=== PATIENT | female | born 1935 | race Caucasian/White ===

== ENCOUNTER 2020-01-08 12:33 | Emergency (ER) | payer MEDICARE, SELFPAY ==
--- NOTE | ~2020-01-08 | CT_ITS ---
EXAMINATION: CT brain wo con DATE: 01/08/2020 15:10 INDICATION: Status post fall. Head trauma. TECHNIQUE: Computed tomography (CT) of the head was performed without intravenous contrast. The dose- length product was 681.00 mGy-cm. Automated exposure control and iterative reconstruction technique w ere employed. COMPARISON: CT dated 11/11 FINDINGS: Mild generalized atrophy. There are scattered moderate periventricular and subcortical whit e matter changes, most likely related to small vessel ischemic disease (microangiopathy). There is mi ld mucosal thickening of the left maxillary sinus. No acute intracranial hemorrhage, infarction, mass or mass effect. No ventriculomegaly or midline shift. No depressed skull fractures. IMPRESSION: 1. No acute intracranial abnormality. 2: Chronic age-related findings. Reviewed, dictated and finalized at location B.
--- NOTE | ~2020-01-08 | XR_ITS ---
XR knee LT 3V 01/08/2020 15:37 Indication: Left knee pain Procedure: 3 views left knee Comparison: No prior studies for comparison. Findings: Moderate osteoarthritis of the left knee. No acute fracture or traumatic malalignment. No s ignificant joint effusion. No foreign bodies. Osteopenia. Impression: 1: Moderate osteoarthritis of the left knee. Reviewed, dictated and finalized at location B. Impression: 1: Moderate osteoarthritis of the left knee.
--- NOTE | ~2020-01-08 | CT_ITS ---
EXAMINATION: CT cervical spine wo con DATE: 01/08/2020 15:10 INDICATION: Fall onto left side of the body with loss of consciousness. TECHNIQUE: Computed tomography (CT) of the cervical spine was performed without intravenous contrast. Automated exposure control and iterative reconstruction technique were employed. The dose-length pro duct was 118.61 mGy-cm. COMPARISON: None FINDINGS: Exaggerated cervical lordosis. 1-2 mm anterolisthesis C6 on C7 and 2 mm anterolisthesis C7 on T1. Sev ere osteoarthritis at the atlantoaxial articulation. T3 burst fracture with 70% anterior vertebral loida dy height loss and with 4 mm retropulsion into the central canal resulting in mild central canal sten osis. 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 Cervical vertebral body heights are normal. No other fractures identified. Mild disc height loss at C4-C5, C5-C6 and C6-C7. Mild biapical pleural-parenchymal scarring. The following disc levels are specifically discussed: C2-C3: Small posterior disc osteophyte complex. There is moderate bilateral uncovertebral joint osteo arthritis. There is mild right and severe left facet joint osteoarthritis. There is mild left neural foraminal stenosis. There is minimal central canal stenosis. C3-C4: Disc is minimally bulging. There is mild right and moderate left uncovertebral joint osteoarth ritis. There is moderate right and severe left facet joint osteoarthritis. There is mild right and mo derate left neural foraminal stenosis. There is minimal central canal stenosis. C4-C5: Posterior disc osteophyte complex. There is severe bilateral uncovertebral joint osteoarthriti s. There is mild right and severe left facet joint osteoarthritis. There is mild right and moderate l eft neural foraminal stenosis. There is mild central canal stenosis. C5-C6: Disc is bulging. There is moderate left and severe right uncovertebral joint osteoarthritis. T here is mild right and moderate left facet joint osteoarthritis. There is moderate bilateral neural f oraminal stenosis. There is mild central canal stenosis. C6-C7: Disc is bulging. There is old right and severe left uncovertebral joint osteoarthritis. There is severe right and moderate left facet joint osteoarthritis. There is moderate bilateral neural fora ju stenosis. There is mild central canal stenosis. C7-T1: Disc is bulging. There is mild bilateral uncovertebral joint osteoarthritis. There is severe b ilateral facet joint osteoarthritis. There is mild to moderate bilateral neural foraminal stenosis. T here is mild central canal stenosis. IMPRESSION: 1. Subacute to chronic appearing T3 burst fracture. No acute osseous abnormality in the cervical spin e. 2. Moderate cervical spondylosis. Reviewed, dictated and finalized at location A. IMPRESSION: 1. Subacute to chronic appearing T3 burst fracture. No acute osseous abnormalit y in the cervical spine. 2. Moderate cervical spondylosis.
--- NOTE | ~2020-01-08 | XR_ITS ---
EXAMINATION: XR hand LT min 3V DATE: 01/08/2020 15:38 INDICATION: Pain at the phalanges of the left hand and abrasions at the metacarpophalangeal joints po st fall. TECHNIQUE: Posteroanterior, oblique and lateral views of the left hand were obtained. COMPARISON: None. FINDINGS: Bone alignment is normal. No fracture. Mild to moderate polyarticular osteoarthritis throughout the l eft hand and wrist most prominent at the first carpometacarpal, third metacarpophalangeal and third d istal interphalangeal joints. Diffuse osteopenia. Peripheral IV at the dorsum of the distal forearm. Mild soft tissue swelling about several of the interphalangeal joints. IMPRESSION: 1. Mild to moderate polyarticular osteoarthritis. No acute osseous abnormality. Reviewed, dictated and finalized at location A.
[2020-01-08 12:34] VITALS: BP 150/70; PULSE 85; RESP 17; TEMP 37; O2SAT 97
--- NOTE | 2020-01-08 12:47 | ECG_ITS ---
Measurements Intervals [place] Rate: 84 P: 62 TX: 145 QRS: 55 QRSD: 86 T: 52 QT: 380 QTc: 450 Interpretive Statements SINUS RHYTHM VOLTAGE CRITERIA FOR LVH BORDERLINE ECG Electronically Signed On 01-08-2020 13:14:20 CDT by Nathaniel Benavides D.O.
[2020-01-08 13:12] LABS: Basophils Absolute Auto 0.1 K/mm3 (0.0-0.1); Eosinophils Absolute Auto 0.7 K/mm3 (0-0.3); Eosinophils Percent Auto 5.9 % (0-4.4); Hematocrit 41.1 % (37.0-47.0); Hemoglobin 13.5 g/dL (12.0-15.0); Immature Granulocyte Absolute 0.04 K/mm3 (0.00-0.031); Immature Granulocyte Percent A 0.3 % (0-0.5); Lymphocytes Percent Auto 14.5 % (18.3-44.2); Mean Corpuscular HGB Conc 32.8 g/dl (32-36); Mean Corpuscular Hemoglobin 30.3 pg (26-34); Mean Corpuscular Volume 92.4 fl (80-100); Monocytes Absolute Auto 0.9 K/mm3 (0.1-0.6); Monocytes Percent Auto 7.3 % (2.6-8.5); Neutrophils Absolute Auto 8.3 K/mm3 (1.3-6.7); Platelet Count Result 261 k/mm3 (150-375); Red Blood Count 4.45 M/mm3 (4.2-5.4); Red Cell Distribution Width 14.2 % (11.5-14.5); White Blood Count 11.7 K/mm3 (4.5-10.0)
[2020-01-08 13:26] LABS: Anion Gap 8 mmol/L (8-16); Blood Urea Nitrogen 11 mg/dL (7-17); Calcium 9.1 mg/dL (8.4-10.2); Carbon Dioxide 26 mmol/L (22-30); Chloride 104 mmol/L (98-107); Estimated CRCL calculation 47 ml/min; Estimated Glomerular Filt Rate > 60; Glucose 103 mg/dL (65-105); Potassium 4.3 mmol/L (3.4-5.0); Sodium 138 mmol/L (137-145)
[2020-01-08 14:25] VITALS: BP 150/71; PULSE 76; RESP 15; O2SAT 99
--- NOTE | 2020-01-08 14:35 | ED.FALL ---
HPI - Fall General Chief Complaint: Fall Stated Complaint: fall Time Seen by Provider: 01/08/20 14:23 Source: patient, family and EMS Limitations: no limitations History of Present Illness HPI Narrative: 84 years old white female, lives with her daughter, went out for short walk, possible tripped at the curb and fell on the left side of her body, with possible loss of consciousness for a few seconds. Patient does not recall the event. Patient have history of Alzheimer's , is normal for her to not remembering events. Currently complaining of left knee pain. Patient denies any head, neck, back, chest, abdomen or any other injuries. Except some bruises of left hand and some pain left knee anteriorly. Related Data Allergies Allergy/AdvReac Type Severity Reaction Status Date / Time ANESTHIA MED Allergy Unknown TROUBLE Uncoded 01/08/15 13:21 BREATHING Review of Systems Review of Systems: Narrative: CONSTITUTIONAL: Denies fever, chills, or sweats. EYES: Denies visual changes, redness, or discharge. ENT: Denies rhinorrhea, congestion, sore throat, or otalgia. CARDIOVASCULAR: Denies chest pain, palpitations, or edema. RESPIRATORY: Denies cough or dyspnea. GASTROINTESTINAL: Denies abdominal pain, nausea, vomiting, or diarrhea. GENITOURINARY: Denies dysuria or hematuria. SKIN: Denies rash or itching. MUSCULOSKELETAL: Denies back pain, joint pain, or myalgia. NEUROLOGIC: Denies headache, numbness, or weakness. PSYCHIATRIC: Denies anxiety or depression. [facility] Past Medical History Medical History (Updated 01/08/20 @ 16:55 by Ami Boswell MD) Dementia Family History Family History Mother Family history of malignant neoplasm of breast in first degree relative Grandparent Family history of malignant neoplasm of male breast Social History Social History Smoking status: Never smoker Alcohol intake: never Gender identity (if verbalized by the patient): Female Exam Narrative: Exam Narrative: General appearance: Well-developed, well-nourished Skin: Normal color, abrasion at the knuckles of the left fingers, bruises and contusion of left side of left upper lip Head: Normocephalic, nontraumatic Eyes: Clear conjunctiva ENT: Oropharynx normal, ears normal, nose normal Neck: Supple, nontender Chest and respiratory: Airway patent, no respiratory distress, no accessory muscle use Heart: Regular rate/rhythm Abdomen: Soft, nontender, no organomegaly, quiet bowel sounds Vascular: Normal peripheral pulses, normal capillary refill. Musculoskeletal: Normal range of motion, nontender back, slight tenderness left knee anteriorly, no bruises, no swelling or deformity, good range of motion Neurologic: Alert and oriented ?3, CLINICAL APPLICATION MANAGER is normal as tested, no gross motor deficit Course Course Emergency Course: Improving ADMISSIONS OFFICER/PA Physician Supervision Patient still asymptomatic, feeling okay and ready to go home, X-ray showed subacute/chronic T3 burst fracture. I believe it is old and chronic because patient currently having no symptoms. Reevaluation(s) Date: 01/08/20 Time: 16:56 Vital Signs Vital signs: Vital Signs Temperature 37.0 C 01/08/20 12:34 Pulse Rate 85 01/08/20 12:34 Respiratory Rate 17 01/08/20 12:34 Blood Pressure 150/70 H 01/08/20 12:34 Pulse Oximetry 97 01/08/20 12:34 Temperature 37.0 C 01/08/20 12:34 Pulse Rate 78 01/08/20 16:24 Respiratory Rate 18 01/08/20 16:24 Blood Pressure 119/50 L 01/08/20 16:24 Pulse Oximetry 98 01/08/20 16:24 MDM - Fall MDM Narrative Medical decision making narrative: Physical e
[2020-01-08 15:55] LABS: Add Urine Microscopic? YES; Appearance Urine Clear (Clear); Bacteria Urine Trace /hpf; Bilirubin Urine Negative (Negative); Blood Urine Negative (Negative); Color Urine Yellow (Yellow); Glucose Urine UA Negative (Negative); Ketones Urine Negative (Negative); Leukocyte Esterase Ur Negative LEU/UL (Negative); Mucus Urine Rare /lpf; Nitrate Urine Negative (Negative); Protein Urine Negative (Negative); Specific Grav Ur 1.015 (1.001-1.035); Squamous Epithelial Cell Urine Rare /hpf (Few); Urobilinogen Urine Negative mg/dL (<2.0); WBC Urine 0-3 /hpf
[2020-01-08 16:24] VITALS: BP 119/50; PULSE 78; RESP 18; O2SAT 98
[2020-01-08 17:27] VITALS: BP 112/86; PULSE 99; RESP 17; O2SAT 98
== END 2020-01-08 17:45 | disposition home or self-care (01) ==
PROVIDERS: Emergency Provider Emergency Medicine
DX: S22.031A Stable burst fracture of third thoracic vertebra, initial encounter for closed fracture (principal); S00.531A Contusion of lip, initial encounter; G30.9 Alzheimer's disease, unspecified; F02.80 Dementia in other diseases classified elsewhere, unspecified severity, without behavioral disturbance, psychotic disturbance, mood disturbance, and anxiety; W18.09XA Striking against other object with subsequent fall, initial encounter
CPT/HCPCS: 36415; 51701; 70450; 72125; 73130; 73562; 80048; 81001; 85025; 93005; 99284

== ENCOUNTER 2025-02-02 20:36 | Inpatient (IN) | payer MEDICARE, SELFPAY ==
--- OUTSIDE RECORDS SUMMARY | 2009-08-07 06:00 | XMS_ITS | Continuity of Care Document ---
Author Organization [facility] Address [address] [facility] [address] [place] [address] Phone Care Team Providers Care Review Specialist Name Role Phone Mc Alatorre Unavailable Unavailable Procedures Procedure Date Post-op Follow-up Visit Refraction After Cataract Laser Surgery Office/outpatient Visit, Est Office/outpatient Visit, Est Optic Nerve Head Eval No Script Office/outpatient Visit, Est Optic Nerve Head Eval No Script Fundus Photography W/ Report Visual Field Examination(s) Office/outpatient Visit, Est Optic Nerve Head Eval Echo Exam Of Eye Eye Exam & Treatment Refraction Advance Directives Directive Yes / No Effective Date File Name No Information Encounters Encounter Description Practice Location Reason(s) For Visit Diagnoses Date Provider Providers Copied on Encounter [facility], [address], [place], [place], [id number], [place] tel:[phone] [facility] No Information 0 Celi Bentley. [address] , [address], [place], [address], [place]. tel:[phone] [facility], [address], [place], [place], [id number], [place] tel:[phone] [facility] No Information Apr-0 8-201 0 Doisy Edsheila. [address], [address], [place], [address], [place]. tel:[phone] Office/outpat ient Visit, [facility], [address], [place], [place], [id number], [place] tel:[phone] [facility] No Information Mar-2 5-201 0 Doisy Edsheila. [address] , [address], [place], [place], [facility], [place]. tel:[phone] Office/outpat ient Visit, [facility], [address], [place], [place], [id number], [place] tel:[phone] [facility] No Information Oct-2 2-200 9 Doiroman Edsheila. [address], [place], [place], [facility], [place]. tel:[phone] Office/outpat ient Visit, [facility], [address], [place], [place], [id number], [place] tel:[phone] [facility] No Information Apr-2 0-200 9 Doisy Edsheila. [address], [place], [address], [place]. tel:[phone] Referring Provider: Mc Arellano, [address], [place], [place], [facility]. tel:[phone] [facility], [address], [place], [place], [id number], [place] tel:[phone] [facility] No Information Mar-3 1-200 9 Doisy Edsheila. [address], [place], [address], [place]. tel:[phone] Referring Provider: Mc Arellano, Sav[address], [place], [facility]. tel:[phone] Office/outpat ient Visit, Est [facility], [address], [place], [place], [id number], tel:[phone] [facility] No Information 8 Celi Bentley. [address] [place] [address] , [address], [place], [facility], . tel:[phone] Referring Provider: [facility] [address], [place], [facility]. tel:[phone] [facility], [address], [place], [place], [id number], tel:[phone] [facility] No Information 7 Celi Bentley. [address] [place] [address] , [address], [place], [facility], . tel:[phone] Family History Family Member Type Diagnosis Age At Onset No Information Payers Payer name Insurance type Covered democrat ID Authoriza tion(s) No Information Social History Type Description Quantity Date Captured Comments Sex Female Smoking Status No Information Chief Complaint And Reason For Visit No Information Reason For Referral Reason For Referral No Information History Of Present Illness Encounter Date Complaint History Of Prese nt Illness No Information Functional Status Date Functional Assessmen t No Information Instructions Date Instruction Additional Infor mation No Information Assessments Type Assessment Date No Information Patient Care Teams Name Effective Dates (start - stop) Status Members No Information
--- NOTE | ~2025-02-02 | XR_ITS ---
MODIFIED ESOPHAGRAM HISTORY: Dysphagia. TECHNIQUE: Modified barium esophagram was performed on 02/11/2025. I administered fluoroscopy and performed the exam with speech pathologist. Patient was seated for lateral fluoroscopic imaging for ingestion of thin liquids, pudding, solids and quantified amounts, followed by thin liquids in uncontrolled amounts. This was recorded on tape. A single fluoroscopic spot image was also recorded. The DAP for this procedure was 1.869 Gycm2. The amount of fluoroscopy time used during this procedure was 3.2 minutes. FINDINGS: Oral stage: Reduced lingual movement with premature spillage of contrast bolus to the level of the vallecula with all consistencies. Pharyngeal stage: Reduced laryngeal elevation, reduced tongue base retraction and reduced pharyngeal squeeze. There is moderate vallecular, piriform sinus and pharyngeal wall residue. Laryngeal penetration without aspiration. There is also cricopharyngeal dysfunction. Cervical/esophageal stage: Adequate function. IMPRESSION: Pharyngeal dysphagia with significant residue and laryngeal penetration without aspiration. Please correlate with speech pathologist findings and specific feeding recommendations. Reviewed, dictated and finalized at location A. IMPRESSION: Pharyngeal dysphagia with significant residue and laryngeal penetra tion without aspiration. Please correlate with speech pathologist findings and specific feeding recommendations.
--- NOTE | ~2025-02-02 | XR_ITS ---
Examination: XR pelvis 1-2V, XR hip RT min 2V Clinical History: fall Comparison: None Technique: AP pelvis, 2 views right hip Findings/impression: Pelvis: 1. No acute pelvic fracture. 2. Left pubic rami chronic fractures. 3. Comminuted intertrochanteric fracture right hip. Right hip 1. Comminuted intertrochanteric fracture. Reviewed, dictated and finalized at location R.
--- NOTE | ~2025-02-02 | XR_ITS ---
EXAMINATION: XR chest 1V portable COMPARISON: No comparisons available. HISTORY: Shortness of breath FINDINGS: Moderate pulmonary venous congestion. Small basilar infiltrates. No pneumothorax. Moderate cardiomegaly. Mediastinal and hilar contours are within normal limits. Bony thorax no acute abnormality. Miscellaneous: Left PICC line terminates in the SVC. Impression: Probable CHF. Superimposed pneumonia suspected. The findings appear slightly improved compared to the previous exam Reviewed, dictated and finalized at location P. Impression: Probable CHF. Superimposed pneumonia suspected. The findings appear slightly im proved compared to the previous exam
--- NOTE | ~2025-02-02 | XR_ITS ---
EXAMINATION: XR surgery orthopedic DATE: 02/05/2025 11:21 INDICATION: Right intertrochanteric nailing TECHNIQUE: 4 fluoroscopic images of the right wrist were obtained during procedure performed by Dr. Jama. Radiologist was not present for the imaging or procedure. The amount of fluoroscopy time used during this procedure was 5.6 minutes. Total DAP was 26.597 Gycm^2. COMPARISON: None. FINDINGS: Interval reduction internal fixation of a comminuted intertrochanteric fracture the proximal right femur. There is near-anatomic alignment of the weightbearing axis of the femur which is fixed with an antegrade intramedullary [place] with distal interlocking screw and femoral neck dynamic compression screw. The prior displacement of the lesser trochanteric fragment which is not included in the fixation has also significant decreased. Left hip joint space appears relatively preserved. Small marginal osteophytes about the femoral head and acetabulum consistent with mild osteoarthritis. Along the images there is instrumentation projecting over the more distal thigh and femur, unclear whether internal or e xternal to the patient. IMPRESSION: 1. Near-anatomic alignment post open reduction internal fixation of a comminuted intertrochanteric fracture the proximal right femur. See procedure note for further detail. Reviewed, dictated and finalized at location A. IMPRESSION: 1. Near-anatomic alignment post open reduction internal fixation of a comminute d intertrochanteric fracture the proximal right femur. See procedure note for f urther detail.
--- NOTE | ~2025-02-02 | XR_ITS ---
Examination: XR elbow RT 2V Clinical History: fall Comparison: None Technique: 3 views right elbow Findings/impression: 1. Comminuted displaced fracture olecranon. 2. No other fracture noted. 3. No dislocation identified. Reviewed, dictated and finalized at location R.
--- NOTE | ~2025-02-02 | XR_ITS ---
MODIFIED ESOPHAGRAM HISTORY: Dysphagia. TECHNIQUE: Modified barium esophagram was performed on 02/08/2025. I administered fluoroscopy and performed the exam with speech pathologist. Patient was seated for lateral fluoroscopic imaging for ingestion of thin liquids, pudding, solids and quantified amounts, followed by thin liquids in uncontrolled amounts. This was recorded on tape. A single fluoroscopic spot image was also recorded. The DAP for this procedure was 2.002 Gycm2. The amount of fluoroscopy time used during this procedure was 3.3 minutes. FINDINGS: Oral stage: Adequate function. Pharyngeal stage: Reduced laryngeal elevation and tongue base retraction. Moderate vallecular and piriform sinus residue. Laryngeal penetration without aspiration with thin and mildly thickened liquids by cup. Cricopharyngeal dysfunction. Cervical/esophageal stage: Adequate function. IMPRESSION: Pharyngeal dysphagia with laryngeal penetration without aspiration. Please correlate with speech pathologist findings and specific feeding recommendations. Reviewed, dictated and finalized at location A. IMPRESSION: Pharyngeal dysphagia with laryngeal penetration without aspiration. Please correlate with speech pathologist findings and specific feeding recomm endations.
--- NOTE | ~2025-02-02 | XR_ITS ---
EXAMINATION: XR chest 1V portable COMPARISON: No comparisons available. HISTORY: Congestion FINDINGS: Scattered bilateral infiltrates with small bilateral effusions. Moderate pulmonary venous congestion. No pneumothorax. Moderate cardiomegaly. Mediastinal and hilar contours are within normal limits. Bony thorax no acute abnormality. Miscellaneous: None Impression: CHF. Superimposed probable pneumonia Reviewed, dictated and finalized at location P. Impression: CHF. Superimposed probable pneumonia
--- NOTE | ~2025-02-02 | XR_ITS ---
Examination: XR chest 1V portable Clinical History: Congestion Comparison: 1 day prior Technique: Portable AP Findings: Cardiomegaly. Mild worsening diffuse airspace opacities. Persistent pleural effusions and bibasilar opacities. No acute bony abnormality. Old left rib fractures. IMPRESSION: 1. Worsening interstitial pulmonary edema and/or pneumonitis. 2. Persistent pleural effusions with bibasilar atelectasis and/or airspace disease. Reviewed, dictated and finalized at location R. IMPRESSION: 1. Worsening interstitial pulmonary edema and/or pneumonitis. 2. Persistent pleural effusions with bibasilar atelectasis and/or airspace dis ease.
--- NOTE | ~2025-02-02 | XR_ITS ---
EXAMINATION: XR chest port-a-cath/central COMPARISON: No comparisons available. HISTORY: CENTRAL LINE PLACEMENT FINDINGS: Moderate pulmonary venous congestion. Small basilar infiltrates. No pneumothorax. Moderate cardiomegaly. Mediastinal and hilar contours are within normal limits. Bony thorax no acute abnormality. Miscellaneous: There is a left-sided line which may be within a left-sided SVC. Impression: CHF. Superimposed probable pneumonia. Left-sided line possibly within a left- sided SVC but exact location not clear. Correlation with CT is suggested Reviewed, dictated and finalized at location P. Impression: CHF. Superimposed probable pneumonia. Left-sided line possibly within a left-si ded SVC but exact location not clear. Correlation with CT is suggested
--- NOTE | ~2025-02-02 | XR_ITS ---
EXAMINATION: XR chest 1V portable COMPARISON: No comparisons available. HISTORY: concern for aspiration FINDINGS: Bilateral small infiltrates. No pneumothorax. Heart is normal size. Moderate hiatal hernia. Bony thorax no acute abnormality. Miscellaneous: None Impression: Early bilateral pneumonia Reviewed, dictated and finalized at location P. Impression: Early bilateral pneumonia
--- NOTE | ~2025-02-02 | CT_ITS ---
EXAMINATION: CT brain wo con DATE: 02/02/2025 21:20 INDICATION: Fall. TECHNIQUE: Computed tomography (CT) of the head was performed without intravenous contrast. The mA was adjusted according to patient size. Iterative reconstruction technique was employed. The dose-length product was 681.00 mGy-cm. COMPARISON: Head CT 01/08/2020 FINDINGS: There are scattered areas of low attenuation in the cerebral white matter. There is no intracranial hemorrhage, acute infarction, or abnormal intracranial mass lesion. The ventricles are normal in size. There is mild mucosal thickening in the paranasal sinuses. There are likely changes of ocular lens replacement surgeries. The mastoid air cells are normal. IMPRESSION: 1. Stable extensive nonspecific cerebral white matter disease, which likely represents chronic small vessel ischemic disease. Reviewed, dictated and finalized at location E. IMPRESSION: 1. Stable extensive nonspecific cerebral white matter disease, which likely rep resents chronic small vessel ischemic disease.
--- NOTE | ~2025-02-02 | MR_ITS ---
EXAMINATION: MR brain/brain stem wo con DATE: 02/07/2025 17:38 INDICATION: Cerebrovascular accident. TECHNIQUE: Magnetic resonance imaging (MRI) of the brain and brainstem was performed without intravenous contrast. COMPARISON: Brain MRI 11/18/2008 FINDINGS: There is no intracranial hemorrhage, acute infarction, or abnormal intracranial mass lesion. There are scattered areas of nonspecific increased T2- weighted signal intensity in the cerebral white matter. The ventricles are normal in size. There are likely changes of ocular lens replacement surgeries. The mastoid air cells are normal. The paranasal sinuses are clear. IMPRESSION: 1. Extensive nonspecific cerebral white matter disease, which likely represents chronic small vessel ischemic disease. 2. Note that some sequences were not performed due to patient noncompliance. Reviewed, dictated and finalized at location E.
--- NOTE | ~2025-02-02 | XR_ITS ---
EXAMINATION: XR surgery orthopedic DATE: 02/05/2025 13:32 INDICATION: ORIF right elbow fracture TECHNIQUE: 2 fluoroscopic images of the right elbow were obtained during procedure performed by Dr. Jama. Radiologist was not present for the imaging or procedure. The amount of fluoroscopy time used during this procedure was 11.1 minutes. Total DAP was 6.29 Gycm^2. COMPARISON: 02/02/2025 FINDINGS: Interval reduction of the previously noted intra-articular fracture of the proximal right ulna extending across the base of the olecranon which is now in near-anatomic limited. The fracture is fixed with a dorsal plate and screws. Mild osteoarthritis at the ulnotrochlear articulation. IMPRESSION: 1. Near-anatomic alignment post open reduction internal fixation of an intra- articular proximal right ulnar fracture. See procedure note for further detail. Reviewed, dictated and finalized at location A. IMPRESSION: 1. Near-anatomic alignment post open reduction internal fixation of an intra-ar ticular proximal right ulnar fracture. See procedure note for further detail.
--- NOTE | ~2025-02-02 | CT_ITS ---
EXAMINATION: CT cervical spine wo con DATE: 02/02/2025 21:20 INDICATION: Fall. TECHNIQUE: Computed tomography (CT) of the cervical spine was performed without intravenous contrast. Automated exposure control and iterative reconstruction technique were employed. The dose-length product was 143.30 mGy-cm. COMPARISON: CT 01/08/2020 FINDINGS: Alignment is normal. There is a chronic burst fracture of T3. There is mildly decreased disc height at C2-C3, severely decreased disc height at C4-C5 and C5-C6, and moderately decreased disc height at C6-C7. There is multilevel severe facet joint osteoarthritis and uncovertebral joint osteoarthritis. There is mild neural foraminal stenosis at multiple levels on either side. On the left, there is moderate neural foraminal stenosis at C4-C5. There is mild central canal stenosis at C4-C5, C5-C6, and C6-C7. IMPRESSION: 1. No acute fracture. 2. Severe cervical spondylosis. Reviewed, dictated and finalized at location E.
--- NOTE | ~2025-02-02 | XR_ITS ---
Examination: XR chest 1V Clinical History: Fall Comparison: None Technique: Portable AP Findings: Heart size upper limit of normal. Patchy bilateral interstitial foci. Old left rib fractures. IMPRESSION: 1. Interstitial changes probably chronic but superimposed pneumonitis or airspace disease not excluded. Reviewed, dictated and finalized at location R. IMPRESSION: 1. Interstitial changes probably chronic but superimposed pneumonitis or airsp khadijah disease not excluded.
--- NOTE | ~2025-02-02 | XR_ITS ---
MODIFIED ESOPHAGRAM HISTORY: Aspiration TECHNIQUE: Modified barium esophagram was performed on 02/04/2025. I administered fluoroscopy and performed the exam with speech pathologist. Patient was seated for lateral fluoroscopic imaging for ingestion of thin liquids, pudding, solids and quantified amounts, followed by thin liquids in uncontrolled amounts. This was recorded on tape. A single fluoroscopic spot image was also recorded. The DAP for this procedure was 5.181 Gycm2. The amount of fluoroscopy time used during this procedure was 7.7 minutes. FINDINGS: Oral stage: Reduced lingual to palatal seal. Pharyngeal stage: Reduced laryngeal elevation and adduction. Reduced tongue base retraction. There is vallecular, piriform sinus and pharyngeal wall residue. There was laryngeal penetration with aspiration with multiple consistencies. Cervical/esophageal stage: Limited opening of the upper esophageal sphincter. IMPRESSION: Oropharyngeal dysphagia with laryngeal penetration and aspiration with multiple consistencies Please correlate with speech pathologist findings and specific feeding recommendations. Reviewed, dictated and finalized at location A. IMPRESSION: Oropharyngeal dysphagia with laryngeal penetration and aspiration w ith multiple consistencies Please correlate with speech pathologist findings a nd specific feeding recommendations.
[2025-02-02 20:32] VITALS: BP 185/118; PULSE 112; RESP 25; TEMP 36.7; O2SAT 94
--- NOTE | 2025-02-02 20:48 | ED.FALL ---
HPI - Fall General Chief Complaint: Fall Stated Complaint: fall, hip pain Time Seen by Provider: 02/02/25 20:45 Source: patient and EMS Mode of arrival: EMS Limitations: no limitations History of Present Illness HPI Narrative: Patient is an 89-year-old female presents to the emergency department from [facility] by EMS for a fall. Patient reports just prior to arrival she fell while getting off the toilet, denies feeling lightheaded or passing out rather it is fell onto her right side hitting her right elbow. Patient denies hitting her head or having loss of consciousness. Patient states she was on the ground for any extended period of time. Patient denies any pain at rest only when I push on her right elbow. Patient denies any history of injury to right elbow wound the past. Patient denies any recent illness. Patient denies any chest pain, difficulty breathing, abdominal pain, back pain, pain, focal weakness, numbness, urinary incontinence, stool incontinence, dysuria. Related Data Home Medications ?Medication ?Instructions ?Recorded ?Confirmed ?Last Taken ?Type donepezil 10 mg tablet mg 02/02/25 Unknown History levothyroxine 112 mcg tablet mcg 02/02/25 Unknown History levothyroxine 88 mcg tablet mcg 02/02/25 Unknown History methenamine hippurate 1 gram tablet g 02/02/25 Unknown History simvastatin 20 mg tablet mg 02/02/25 Unknown History timolol maleate 0.5 % eye drops drp 02/02/25 Unknown History Allergies Allergy/AdvReac Type Severity Reaction Status Date / Time ANESTHIA MED Allergy Unknown TROUBLE Uncoded 01/08/15 13:21 BREATHING Review of Systems Review of Systems: A 10 system review of systems was completed on the patient and is negative except for what is stated in the HPI. Nursing and ancillary documentation was reviewed. FORMERLY [facility], [facility] Past Medical History Medical History (Updated 02/02/25 @ 22:54 by Davian Lewis DO) Dementia Family History Family History Mother Family history of malignant neoplasm of breast in first degree relative Grandparent Family history of malignant neoplasm of male breast Social History Social History Smoking status: Never smoker Alcohol intake: never Gender identity (if verbalized by the patient): Female Exam Narrative: CONST: No acute distress. Well nourished. C collar in place upon arrival. HENMT: Head is normocephalic and atraumatic. Moist mucous membranes. No posterior oropharynx erythema. EYES: No scleral icterus. No conjunctival injection or pallor. PERRL. NECK: No meningeal signs. RESP: Able to speak in full sentences. Normal respiratory effort. CTAB. CARDIO: Tachycardic rate. Regular rhythm. 2+ DP and radial pulses bilaterally. GI: Nondistended. No tenderness to palpation. Soft. : No CVA tenderness to palpation. SKIN: No rashes or lesions noted on exposed skin. NEURO: Oriented x3. Moves all extremities. Sensation intact to light touch throughout bilateral lower extremities bilateral upper extremities. Patient is able to wiggle her toes bilaterally. EXTREM/MSK/BACK: No pedal edema. Pelvis is nontender to palpation in stable to rock. No lower extremity tenderness palpation or palpable deformities. No left upper extremity tenderness palpation or palpable deformities. No midline vertebral tenderness to palpation or palpable step-offs. Mild tenderness to palpation and swelling to the right elbow. Patient is able to flex and extend the right elbow actively. Executive Admin strength is 5/5 in bilateral upper extremities. No other right upper extremity tenderness palpation. No blood loss appreciated the skin. PSYCH: Normal affect. Course Vital Signs Vital signs: Vital Signs Temperature 98.1 F 02/02/25 20:32 Pulse Rate 112 H 02/02/25 20:32 Respiratory Rate 25 H 02/02/25 20:32 Blood Pressure 185/118 H 02/02/25 20:32 Pulse Oximetry 94 02/02/25 20:32 Oxygen Delivery Room Air 02/02/25 20:32 Temperature 98.1 F 02/02/25 20:32 Pulse Rate 99 02/02/25 22:31 Respiratory Rate 24 H 02/02/25 22:31 Blood Pressure 185/118 H 02/02/25 20:32 Pulse Oximetry 92 02/02/25 22:31 Oxygen Delivery Room Air 02/02/25 20:32 Procedures Catheter Insertion (Urinary) Urinary Catheter 1: Date of insertion: 02/02/25 Time of insertion: 23:31 Reason for placing: Yes Reason for placing indwelling catheter: Prolonged immobilization Antiseptic solution prep: Povidone-Iodine Topical anesthesia used: No Catheter type/location: Urethral Size (Tajik): 18 Results: successfully catheterized-immediate flow Procedure performed: without complications Orthopedic Splinting/Casting Injury #1: Splinting/Casting Date: 02/02/25 Splinting/Casting Time: 23:45 Side: right Upper Extremity Injury Location: elbow Upper Extremity Immobilizer: posterior splint Splint: prefabricated Pre-Procedure Neuro Vascular Exam: normal Post-Procedure Neuro Vascular Exam: normal MDM - Fall MDM Narrative Medical decision making narrative: Patient presents with the above complaint. Initial vitals are remarkable for tachycardia, tachypnea, elevated blood pressure 185/118. Physical examination as noted above. Differential diagnosis includes was not limited to: Fracture, contusion, sprain, strain, other acute traumatic injuries. Patient denies any pain at this time other than when I press on her right elbow, notes that she does not want any pain medications. Patient states that she has acute change or find any given time get her CP medications. Discussed plan to obtain a right elbow x-ray, chest x-ray, pelvis x-ray, CT head and CT cervical spine, EKG, ice pack, extremity elevation, continues cardiac monitoring, continuous pulse oximetry. Suspect patient's vital sign derangements are secondary to pain. On reassessment patient is endorsing some pain of her right hip, mild tenderness palpation of her right hip. A preliminary review the pelvis x-ray there appears to be a for a hip fracture, dedicated right hip x-rays ordered. Laboratory analysis ordered. EKG performed at 9:42 p.m. reveals a rate of 106, rhythm is sinus tachycardia, possible left atrial enlargement, SC interval 153 milliseconds, QTC duration of 434 milliseconds, QRS duration of 87 milliseconds, no ST elevations, no T-wave abnormalities, no old EKG on file for comparison. CBC reveals a white blood cell count 12.9, hemoglobin 11.8. Coags are within normal limits. Comprehensive metabolic panel reveals a sodium 133, glucose 128. Lipase 166. Troponin is less than 0.012. Total creatine kinase is 82. Magnesium is 2.0. Lactic acid is 1.1. Right elbow x-ray reveals a comminuted displaced fracture of the olecranon. CT of the head reveals no acute posttraumatic intracranial abnormality. Compared to an January 08, 2020 there is no acute intracranial hemorrhage or abnormal extra-axial fluid collection. No acute stroke. Severe confluent nonspecific white matter changes, most commonly seen with small vessel disease. Age-appropriate central and peripheral atrophy. No midline shift. No paranasal sinus air-fluid level. No fracture. CT of the cervical spine reveals no acute posttraumatic abnormality. Compared to 01/08/2020 there is no acute fracture or subluxation. Maintenance of plate to the cervical vertebral bodies. Unchanged chronic severe wedge compression fracture of the T3 vertebral body. Multilevel degenerative changes greatest between C4-C5 through C6-C7. Prevertebral soft tissues unremarkable. Bilateral apical interstitial prominence. Chest x-ray reveals patchy bilateral infiltrates. Heart is normal in size. There are old left rib fractures. Pelvis x-ray reveals an angulated comminuted right intertrochanteric fracture. There appears to be old fractures of the left pubic rami. Right hip x-ray reveals an angulated comminuted right intertrochanteric fracture. I spoke with Dr. Jama a notes the bring the patient into the hospitalist, posterior long-arm splint, will see the patient in consultation. Splint placed. Vitale catheter placed. I spoke with the hospitalist on-call who has accepted the patient for admission. Lab Data 02/02/25 22:04 02/02/25 22:04 Labs: Lab Results 02/02/25 02/02/25 Range/Units 22:04 22:38 WBC 12.9 H (4.5-10.0) K/mm3 RBC 4.14 L (4.2-5.4) M/mm3 Hgb 11.8 L (12.0-15.0) g/dL Hct 36.7 L (37.0-47.0) % MCV 88.6 (80-100) fl MCH 28.5 (26-34) pg MCHC 32.2 (32-36) g/dl RDW 16.7 H (11.5-14.5) % Plt Count 240 (150-375) k/mm3 MPV 11.0 H (7.4-10.4) fl Immature Gran % (Auto) 0.5 (0-0.5) % Neut % (Auto) 73.0 (45.5-73.1) % Lymph % (Auto) 11.9 L (18.3-44.2) % [place] % (Auto) 8.1 (2.6-8.5) % Eos % (Auto) 5.7 H (0-4.4) % Baso % (Auto) 0.8 (0.2-1.2) % Lymph # (Auto) 1.53 (0.9-3.2) K/mm3 [place] # (Auto) 1.0 H (0.1-0.6) K/mm3 Eos # (Auto) 0.7 H (0-0.3) K/mm3 Baso # (Auto) 0.1 (0.0-0.1) K/mm3 Abs Immat Gran (auto) 0.06 H (0.00-0.031) K/mm3 Absolute Neuts (auto) 9.4 H (1.3-6.7) K/mm3 Absolute Nucleated RBC 0.000 (0.0-0.012) K/mm3 Nucleated RBC % 0.0 (0.0-0.2) % PT 11.8 (11.1-14.7) Seconds INR 0.8 APTT 24.5 (22.3-36.8) Seconds Sodium 133 L (137-145) mmol/L Potassium 4.0 (3.4-5.0) mmol/L Chloride 101 (98-107) mmol/L Carbon Dioxide 23 (22-30) mmol/L Anion Gap 9 (4-12) mmol/L BUN 14 (7-17) mg/dL Creatinine 0.79 (0.7-1.0) mg/dL Estim Creat Clear Calc Not Reportable Estimated GFR > 60 (59 - ) Glucose 128 H (65-110) mg/dL Lactic Acid 1.1 (0.7-2.0) mmol/L Calcium 8.8 (8.4-10.2) mg/dL Magnesium 2.0 (1.6-2.3) mg/dL Total Bilirubin 0.4 (0.2-1.3) mg/dL AST 32 (14-36) U/L ALT 21 (6-35) U/L Alkaline Phosphatase 89 (38-126) U/L Total Creatine Kinase 82 (30-135) U/L Troponin I < 0.012 (0.000-0.034) ng/mL Total Protein 7.2 (6.3-8.2) g/dL Albumin 3.9 (3.5-5.1) g/dL Lipase 166 (23-300) U/L TSH (Reflex) 1.010 (0.465-4.68) uIU/mL Urine Color Yellow (Yellow) Urine Appearance Clear (Clear) Urine pH 7.5 (5.0-9.0) Ur Specific Jal 1.012 (1.001-1.035) Urine Protein 2+ H (Negative) mg/dL Urine Glucose (UA) Negative (Negative) mg/dL Urine Ketones Negative (Negative) mg/dL Ur Blood (Man) Non-hemolyzed trace H (Negative) Urine Nitrate Negative (Negative) Urine Bilirubin Negative (Negative) Urine Urobilinogen 0.2 (<2.0) mg/dL Leukocyte Esterase Rfl Negative (Negative) ALEXANDR/UL Urine RBC 3-5 H (0-2) /hpf Urine WBC 0-5 (0-3) /hpf Ur Squamous Epith Cells None seen (Few) /hpf Urine Bacteria None seen /hpf Urine Casts 0-2 Influenza A (RT-PCR) Negative (Negative) Influenza B (RT-PCR) Negative (Negative) RSV (RT-PCR) Negative (Negative) SARS-CoV-2 RNA (RT-PCR) Negative (Negative) Discharge Plan Discharge Clinical Impression: Fall Qualifiers: Encounter type: initial encounter Qualified Code(s): W19.XXXA - Unspecified fall, initial encounter Closed olecranon fracture Qualifiers: Encounter type: initial encounter Laterality: right Qualified Code(s): S52.021A - Displaced fracture of olecranon process without intraarticular extension of right ulna, initial encounter for closed fracture Pneumonia Qualifiers: Pneumonia type: due to unspecified organism Laterality: unspecified laterality Lung location: unspecified part of lung Qualified Code(s): J18.9 - Pneumonia, unspecified organism Closed intertrochanteric fracture Qualifiers: Encounter type: initial encounter Fracture alignment: displaced Laterality: right Qualified Code(s): S72.141A - Displaced intertrochanteric fracture of right femur, initial encounter for closed fracture Patient Disposition: Still a Patient Condition: Guarded Prognosis Patient Language: Spanish Prescriptions: No Action donepezil 10 mg tablet levothyroxine 88 mcg tablet methenamine hippurate 1 gram tablet simvastatin 20 mg tablet timolol maleate 0.5 % drops levothyroxine 112 mcg tablet Follow-up/Referrals: PHYSICIAN,[employer] MANAGER [Non-Staff, Internal Medicine] Time of Disposition: 23:54
--- NOTE | 2025-02-02 20:52 | ECG_ITS ---
Test Date: 2025-02-02 21:42:30 Measurements Intervals [place] Rate: 106 P: 60 MN: 153 QRS: 61 QRSD: 87 T: 47 QT: 326 QTc: 434 Interpretive Statements SINUS TACHYCARDIA POSSIBLE LEFT ATRIAL ENLARGEMENT BASELINE ARTIFACT- I, II, III, AVL, AVF, V2, V5 ABNORMAL ECG No previous ECG available for comparison Electronically Signed On 02-03-2025 07:42:23 CDT by Nathaniel Benavides D.O.
[2025-02-02] MEDS: HYDROcodone/acetaminophen (*CRX) 5-325 MG TABLET 1 TAB PO (21:30)
--- OUTSIDE RECORDS SUMMARY | 2025-02-02 21:49 | XMS_ITS | Clinical Summary ---
Author Organization [facility] Address [address] [place] [address] Care Team Providers Care Gas Station Attendant Name Role Phone No, Physician Unavailable Davian Cardenas MD Primary Care Provider Allergies Active Allergy Reactions Criticality Noted Date Comments Meperidine Other (See comments) High Pt states she coded when given demerol Unclassified Drug Unknown 08/08/2017 Medications LUMIGAN 0.01 % ophthalmic drops USE 1 DROP INTO BOTH EYES EVERY EVENING 4 8 Active qduar-8-fhi-epa -dpa-fish oil 1,050-1,200 mg capsule daily. Active vitamin B complex capsule Acti ve timolol (TIMOPTIC) 0.5 % ophthalmic solution INSTILL 1 DROP IN EACH EYE ONCE DAILY DIRECTED. PLEASE CALL TO SCHEDULE APPT 0 Active cholecalciferol (VITAMIN D-3) 5,000 unit capsule Take 1 capsule (5,000 Units total) by mouth daily Active folic acid (FOLVITE) 1 mg tablet TAKE 1 TABLET BY MOUTH IN THE MORNING 90 tablet 3 1 Active mv-mn/folic acid/vit [id number] (ALIVE ONCE DAILY WOMEN 50 PLUS ORAL) Take by mouth Activ e donepeziL (ARICEPT) 10 mg tablet TAKE 1 TABLET BY MOUTH EVERY DAY IN THE MORNING 90 tablet 2 5 Active simvastatin (ZOCOR) 20 mg tablet TAKE 1 TABLET BY MOUTH EVERY DAY 90 tablet 2 5 Active levothyroxine (SYNTHROID) 75 mcg tablet TAKE 1 TABLET (75 MCG TOTAL) BY MOUTH FEEDER SWITCHBOARD OPERATOR BEFORE BREAKFAST 90 tablet 1 5 Active Active Problems Problem Noted Date Diagnosed Date Uterovaginal prolapse, incomplete 10/03/2023 Assessment & Plan (10/03/2023 9:07 PM CDT): Management options were reviewed for uterovaginal prolapse including expectant management, conservative management (a pessary), and surgical management (obliterative vs reconstructive). Continue pessary management, stressed the importance of q3 month pessary checks. Acute cystitis without hematuria 08/18/2023 Pessary maintenance 08/18/2023 Assessment & Plan (12/19/2023 11:14 AM CDT): She is following with urogynecology. Assessment & Plan (10/03/2023 9:13 PM CDT): -last pessary check in 11/2022, stressed the importance today of q3 month pessary checks Diarrhea 06/06/2023 Assessment & Plan (06/06/2023 12:47 PM WELDING MACHINE SETTER): Test for C diff if liquid stool. Osteoarthritis of spine 11/29/2022 Assessment & Plan (11/29/2022 12:20 PM CDT): Signed handicap form. Incontinence of feces 11/29/2022 Assessment & Plan (11/29/2022 12:21 PM CDT): Avoid eggs and other foods which exacerbate symptoms. Start daily psyllium supplement. Medicare annual wellness visit, subsequent 11/26 Assessment & Plan (11/26/2021 12:37 PM CDT): Continue overall healthy lifestyle. I recommended a COVID booster, Shingrix for shingles, and pneumonia shots (Prevnar and Pneumovax). No longer pursuing cancer screening due to age. Thyroid cancer 11/26/2021 Age-related osteoporosis wit hout current pathological fracture 11/03/2021 Assessment & Plan (12/19/2023 11:14 AM CDT): Per Dr. Persaud. Assessment & Plan (06/06/2023 10:47 AM WELDING MACHINE SETTER): Per Dr. Persaud. Assessment & Plan (11/29/2022 12:18 PM CDT): On Evenity per Dr. Persaud. Assessment & Plan (05/26/2022 12:28 PM WELDING MACHINE SETTER): Managed by bone group. Assessment & Plan (11/26/2021 12:36 PM CDT): Per bone group. About to start Evenity. Cough 01/15/2021 Assessment & Plan (12/19/2023 11:08 AM CDT): Chronic. Possible aspiration. Check CXR today. Assessment & Plan (01/15/2021 4:15 PM CDT): Levaquin and Symbicort (use, technique, s/e reviewed) Brachial neuritis 11/21/2019 Closed fracture of distal end of radius 11/21/19 20 Closed fracture of phalanx of foot 11/21/2019 Fracture of forearm 11/21/2019 Shoulder joint pain 11/21/2019 Multiple rib fractures involving four or more ri bs 10/12/2019 Traumatic compression fracture of T3 vertebra Traumatic compression fracture of T7 vertebra Sacral fracture, closed 10/12/2019 Closed fracture of ramus of left pubis 0 Acute pain due to trauma 10/12/2019 Leukocytosis 10/12/2019 HLD (hyperlipidemia) 10/12/2019 Assessment & Plan (11/29/2022 12:18 PM CDT): Check LDL today and adjust simvastatin dose as necessary. Assessment & Plan (05/26/2022 12:28 PM WELDING MACHINE SETTER): Continue statin. Hypothyroidism 10/12/2019 Assessment & Plan (12/19/2023 11:14 AM CDT): TSH at goal on current levothyroxine dose. Assessment & Plan (06/06/2023 10:47 AM WELDING MACHINE SETTER): Dose of LT4 lowered last time. Repeat TFT's today. Assessment & Plan (11/29/2022 12:18 PM CDT): Check TSH. Assessment & Plan (05/26/2022 12:28 PM WELDING MACHINE SETTER): Check TFT's to make sure this was no contributing to acute confusional state. Left arm swelling 10/12/2019 Late onset Alzheimer's disea se without behavioral disturbance 08/09/2018 Overview (01/25/2024): Onset: 2016 -Clinical dementia ratin sum of box scores 6 -Imaging: HCT 07/2023 for AMS, confluence as well as patchy periventricular subcortical hypo attenuating white matter disease, nonspecific, though likely secondary to chronic microvascular ischemia. -Diagnosis: AD -Relevant medications: donepezil 10 mg Assessment & Plan (01/25/2024 1:35 PM CDT): Onset: 2015 -Clinical dementia ratin sum of box scores 6 -Imaging: HCT 07/2023 for AMS, confluence as well as patchy periventricular subcortical hypo attenuating white matter disease, nonspecific, though likely secondary to chronic microvascular ischemia. -Diagnosis: AD -Relevant medications: donepezil 10 mg Plan: Continue donepezil/Aricept, consider Namenda/memantine moving forward Daughter had questions re: anti amyloid therapy, she would be on the cusp of eligibility, she would need updated bMRI and genotyping as well as a visit with anti amyloid therapy team. She has been very stable over time, I would be reluctant to push for this at age 89 considering her stability. Assessment & Plan (12/19/2023 11:15 AM CDT): Per neurology. Assessment & Plan (06/07/2023 12:39 PM WELDING MACHINE SETTER): Donepezil/Aricept 10 mg daily Assessment & Plan (06/06/2023 12:46 PM WELDING MACHINE SETTER): [facility] Continue Aricept. No need to take Prevagen. Assessment & Plan (11/29/2022 12:19 PM CDT): Per neurology. Assessment & Plan (05/26/2022 12:29 PM WELDING MACHINE SETTER): No clear cause of acute confusion over the weekend. Now back to baseline. Will follow up with neurology. Daughter has seen a foster care social worker for assistance. Assessment & Plan (11/26/2021 12:36 PM CDT): Per neurology. On donepezil. Urge incontinence 08/14/2017 Assessment & Plan (10/03/2023 9:06 PM CDT): Management options for urgency urinary incontinence include expectant management, conservative management (pelvic floor physical therapy and behavioral modification, medical management, PTNS, and surgical management (Interstim sacral neuromodulation, intravesicular botulinum toxin injection). A urine culture is being sent today to rule out a UTI as a possible cause of her symptoms. Vaginal atrophy 08/04/2015 Assessment & Plan (10/03/2023 9:04 PM CDT): We discussed the importance of consistent use of vaginal estrogen cream. We discussed the risks of not using the cream including atrophy, erosion, increased risk of UTI. At the end of the discussion the patient desires to desires to use vaginal estrogen. Start nightly for 2 weeks and then decrease to twice weekly. Syncope 09/08/2013 Overview (07/29/2016): Syncope Lung mass 12/17/2010 Disorder of lung 12/16/2010 Resolved Problems Problem Noted Date Diagnosed Date Resolved Date Acute metabolic encephalopathy 08/18/2023 08/19/2023 Elevated blood pressure reading 08/18/2023 08/19/2023 Driving safety issue 02/14/2020 022 History of breast cancer 12/22/201707/2021 Incomplete emptying of bladder 12/02/2014 10/03/2023 Immunizations Immunization Administration Dates Next Due Influenza, Quad, Adjuvantate d, Intramuscular 03/02/2020 Influenza, Quadrivalent, Spl it, Preservative Free, Intramuscular 03/07/2013 Influenza, Trivalent, High D ose, Split, Preservative Free, Intramuscular 03/04/2019,02/11/2018,02/10/2018,02/22,02/10/2016,02/26/2015 Pfizer SARS-CoV-2 Monovalent Vaccination (12+ Yrs) PURPLE 09/13/2020,08/23/2020 Tdap 10/07/2019 ZOSTER LIVE 08/28/2015 Surgical History Surgery Date Site/Laterality Comments [place] BRNCC INCL FLUOR GDNCE DX W/CELL WASHG SPX Bronchoscopy (Diagnostic) - -1994 (Added by TW Conv) LUNG SURGERY Lung Surgery - (Added by TW Conv) THYROID SURGERY Thyroid Surgery - (Added by TW Conv) Medical History Medical History Date Comments Memory loss Memory Lapses Or Loss - (Added by TW Conv) Age-related osteoporosis wit hout current pathological fracture Osteoporosis - (Added by TW Conv) Personal history of other me ntal and behavioral disorders History of depression - (Add ed by TW Conv) Personal history of other en docrine, nutritional and metabolic disease History of hyperlipi demia - (Added by TW Conv) Personal history of other in fectious and parasitic diseases History of herpes zoster - ( Added by TW Conv) History of recurrent pneumonia H istory of pneumonia - (Added by TW Conv) Other specified complication of genitourinary prosthetic devices, implants and grafts, initial encounter Vaginal erosion secondary to pessary use, initial encounter - (Added by TW Conv) Hyperlipidemia Family History Medical History Relation Name Comments Arthritis Mother Judy Omalley Breast cancer Mother Judy Omalley Adenocarcino ma of breast - (Added by TW Conv) Dementia Mother Judy Omalley Family histor y of dementia - (Added by TW Conv) Broken bones Other daughter Coronary artery disease Other daughter Von nary Artery Disease - (Added by TW Conv) Osteoporosis Other daughter Hip fracture Neg Hx Kyphosis Neg Hx Scoliosis Neg Hx Relation Name Status Comments Mother Judy Omalley Other daughter Social History Tobacco Use Types Packs/Day Years Used Date Smoking Tobacco: Never Smokeless Tobacco: Never Tobacco Cessation:Counseling Given: Not Answered Alcohol Use Standard Drinks/Week Comments No 0 (1 standard drink = 0.6 oz pur e alcohol) [facility] Utilities Answer Date Recorded In the past 12 months has th e electric, gas, oil, or water company threatened to shut off services in your home? No 08/19/2023 Social Connection and Isolation Panel Answer Date Recorded In a typical week, how many times do you talk on the phone with family, friends, or neighbors? More than three times a week 08/19/2023 How often do you get togethe r with friends or relatives? More than three times a week 08/19/2023 How often do you attend chur ch or catholic services? Patient unable to answer 08/19/2023 Do you belong to any clubs o r organizations such as denominational groups, unions, fraternal or athletic groups, or school groups? Patient unable to answer 08/19/2023 How often do you attend meet ings of the clubs or organizations you belong to? Patient unable to answer 08/19/2023 Are you , , di vorced, , never , or living with a partner? 08/19/2023 AUDIT-C Answer Date Recorded Q1: How often do you have a drink containing alc ohol? Monthly or less 08/18/2023 Q2: How many drinks containi ng alcohol do you have on a typical day when you are drinking? 1 or 2 08/18/2023 Q3: How often do you have si x or more drinks on one occasion? Never 08/18/2023 Overall Financial Resource Strain (CARDIA) Answe r Date Recorded How hard is it for you to pa y for the very basics like food, housing, medical care, and heating? Somewhat hard 08/19/2023 PHQ-2 Answer Date Recorded PHQ-2 Total Score (If total score is 3 or more points, staff should administer the PHQ-9) 0 11/26/2021 [facility] [place] [facility] Occupat ional Health - Occupational Stress Questionnaire Answer Date Recorded Do you feel stress - tense, restless, nervous, or anxious, or unable to sleep at night because your mind is troubled all the time - these days? Not at all 10/11/2019 Exercise Vital Sign Answer Date Recorde d On average, how many days pe r week do you engage in moderate to strenuous exercise (like a brisk walk)? 0 days 10/11/2019 On average, how many minutes do you engage in exercise at this level? 0 min 10/11/2019 Hunger Vital Sign Answer Date Recorded Within the past 12 months, y ou worried that your food would run out before you got the money to buy more. Never true 10/11/19 20 Within the past 12 months, t he food you bought just didn't last and you didn't have money to get more. Never true 10/11/2019 PRAPARE - Transportation Answer Date Re corded In the past 12 months, has l ack of transportation kept you from medical appointments or from getting medications? No 07/25 In the past 12 months, has l ack of transportation kept you from meetings, work, or from getting things needed for daily living? No 08/19/2023 Housing Stability Vital Sign Answer Travis e Recorded In the last 12 months, was t here a time when you were not able to pay the mortgage or rent on time? No 08/19/2023 Number of Places Lived in the Last Year Not on f ile 08/19/2023 In the last 12 months, was t here a time when you did not have a steady place to sleep or slept in a chcf (including now)? No 08/19/2023 Personal Safety Answer Date Recorded Have you ever been in or are you currently in a harmful physical or emotional relationship or is someone making you feel afraid or unsafe? Denies 08/18/2023 Education Answer Date Recorded What is the highest level of school you have completed or the highest degree you have received? Bachelor's degree (e.g., BA, AB, BS) 10/11/2019 Comments No Sex and Gender Information Value Date Recorded Sex Assigned at Not on file Legal Sex Female 1:05 AM WELDING MACHINE SETTER Gender Identity Female 05/27/2020 12:53 PM WELDING MACHINE SETTER Sexual Orientation Straight 05/27/2020 12 :53 PM WELDING MACHINE SETTER Obstetrics History Para Term AB IAB SAB Ectopic Multiple Livin g Live Births 4 4 4 4 4 Date Outcome GA Total Labor Labor/2nd/3rd Weight Sex Type Anes PTL Yoselin A1 A5 Name Clin Term Vag-S pont Living Term Vag-S pont Living Term Vag-S pont Living Term Vag-S pont Living Last Filed Vital Signs Vital Sign Reading Time Taken Comments Blood Pressure 118/69 02/13/2024 2:56 PM CDT Pulse 90 01/24/2024 11:32 AM CDT Temperature 36.2 C (97.1 F) 01/24/2024 11:32 AM CDT Respiratory Rate 16 01/24/2024 11:32 AM CDT Oxygen Saturation 98% 01/24/2024 11:32 AM CDT Inhaled Oxygen Concentration - - Weight 60.3 kg (133 lb) 02/13/2024 2:56 PM CDT Height 157.5 cm (5' 2) 02/13/2024 2:56 PM CDT Body Mass Index 24.33 02/13/2024 2:56 PM CDT Plan of Treatment Health Maintenance Due Date Last Done Comments Hepatitis B Screening 1953 Pneumococcal vaccine 65+ (1 of 1 - PCV) 1987 Zoster Vaccine (2 of 3) 10/23/2015 08/28/2015 Depression Screening 11/26/2022 11/26/2021 Well Visit 65+ 11/26/2022 11/26/2021, 12/10/2020 Fall Risk Assessment 08/19/2024 08/20/2023, 11/27/19 22 Covid-19 Vaccine (3 - 2024-2 6 season) 2024 09/13/2020, 08/23/2020 Influenza Vaccine (#1) 2024 , 03/04/2019, 02/11/2018, Additional history exists Osteoporosis Screening-Bone Density Scan 01/02/2026 01/03/2024, 12/20/2022, 10/20/2021, Additional history exists DTaP/Tdap/Td Vaccine (2 - Td or Tdap) 10/06/2029 10/07/2019 Procedures Procedure Name Priority Date/Time Associated Diagnosis Comments DEXA TBS AXIAL SKELETON BONE DENSITY 1 OR MORE SITES Schedule Routine, Read Routine (OP Routine) 01/03/2024 1:25 PM CDT Age-related osteoporosis without current pathological fracture from Last 3 Months or Most Recently Relevant to Health Maintenance Results * Dexa TBS Axial Skeleton Bone Density 1 or more sites (01/03/2024 1:25 PM CDT) Anatomical Region Laterality Modality Wrist, Body N/A Radiographic Aline ging Narrative 01/03/2024 2:23 PM CDT Patient Name: Isabella Malcolm Date of : 1935 Date of scan: 01/03/2024 Bone mineral density was performed on a HoloFM [employer] Densitometer. Based on machine cross-calibration and precision studies the least significant changes of this densitometer is 0.024 g/cm2 at the spine, 0.020 g/cm2 at the total proximal femur, and 0.014g/cm2 at the forearm. HISTORY: This is a 88 y.o. postmenopausal female with a history of multiple fractures, osteoporosis, and thyroid disease. She reports that she has never smoked. She has never used smokeless tobacco. Currently on treatment with vitamin D and thyroid hormone and previously treated with ibandronate ([facility]) and romosozumab ([facility]). INDICATIONS: Menopause status, history of prior wrist and vertebral fracture, and history of osteoporosis. FINDINGS: BONE MINERAL DENSITY OF THE PROXIMAL FEMUR Bone Mineral Density (BMD) of the left hip total was found to be 0.698 gm/cm2. This corresponds to a T-score standard deviations from the mean of young adults of -2.0. Femoral neck is 0.640 gm/cm2 with a T-score (standard deviations from the mean of young adults) of -1.9. When compared to the previous study of 12/20/2022 there has been a -0.023 gm/cm (-3.2%) decrease in bone density that is considered significant. BONE MINERAL DENSITY OF THE FOREARM Bone Mineral density (BMD) of the left proximal 1/3 of the radius measures 0.482 gm/cm2. This corresponds to a T-score (standard deviations from the mean of young adults) of -3.5. When compared to the previous study of 12/20/2022 there has been no significant changes in bone density. A forearm bone density study was performed instead of a spine study because of severe degenerative disease . SUMMARY: Bone mineral density shows evidence of osteoporosis and marked increase risk of fracture. There has been a significant decrease in bone density since previous measurement. The lumbar spine Trabecular Bone Score TBS was not obtained due to the bone mineral density of the spine not being acquired. ADDITIONAL COMMENTS: Postmenopausal Women and Men Over 50: Diagnostic criteria: Osteoporosis: BMD at or below -2.5 T-score; Osteopenia (low bone mass): BMD between -1.0 and -2.5 T-score. If the patient has a history of a fragility fracture, a fracture that occurred with trauma equivalent to a fall from a standing position or less, then the diagnosis is osteoporosis regardless of bone density. The history and data sections of the bone mineral density scan were prepared by Shwetha Alfaro)([facility])who is accredited by the International Society of Clinical Densitometry. The overall patient assessment and scan interpretation were performed by Rich Persaud M.D. who is certified by the International Society of Clinical Densitometry. [id number] Rich Persaud MD IMG DXA PROCEDURES Final Result from Last 3 Months or Most Recently Relevant to Health Maintenance Insurance [employer] MEDICARE ADVANTAGE [facility] MEDICARE [facility] MEDICARE T MEDICARE Advance Directives For more information, please contact: [phone] Documents on File Type Date Recorded Patient Cargo Checker Expl anation ADVANCE DIRECTIVE 10/17/2019 2:41 PM POWER OF TANK CAR INSPECTOR * Full Code (Latest Code Status on File) Date Activated Date Inactivated Comments 08/18/2023 8:07 PM 08/20/2023 7:57 PM * Full Code Date Activated Date Inactivated Comments 10/08/2019 7:12 PM 10/15/2019 5:29 PM Care Teams Gas Station Attendant Relationship Specialty Start Date End Date Davian Cardenas MD PCP - General Endocrinology Diabetes & Metabolism 08/24/21 No, Physician 10/13/19
--- OUTSIDE RECORDS SUMMARY | 2025-02-02 21:49 | XMS_ITS | Encounter Summary ---
Author Organization [facility] Healthcare Address [address] [place] [id number] Care Team Providers Care Mixer Tender Name Role Phone Fili Arriaga MD Primary Care Provider [phone] No, Physician Unavailable Davian Cardenas MD Primary Care Provider Encounter Details Date Type Department Care Team (Late st Contact Info) Description 10/16/2019 Documentation [facility] Social Work [address] [place] [address] Peggy Estevez LCSW Social History Tobacco Use Types Packs/Day Years Used Date Smoking Tobacco: Former Smokeless Tobacco: Never Alcohol Use Standard Drinks/Week Comments No 0 (1 standard drink = 0.6 oz pur e alcohol) Social Connection and Isolation Panel Answer Date Recorded In a typical week, how many times do you talk on the phone with family, friends, or neighbors? More than three times a week 10/11/2019 How often do you get togethe r with friends or relatives? More than three times a week 10/11/2019 How often do you attend chur or presybeterian services? More than 4 times per year 10/11/2019 Do you belong to any clubs o r organizations such as hoahaoism groups, unions, fraternal or athletic groups, or school groups? No 10/11/2019 How often do you attend meet ings of the clubs or organizations you belong to? Never 10/11/2019 Are you , , di vorced, , never , or living with a partner? 10/11/2019 Overall Financial Resource Strain (CARDIA) Answe r Date Recorded How hard is it for you to pa y for the very basics like food, housing, medical care, and heating? Not hard at all 10/11/2019 [facility] ional Health - Occupational Stress [...] medical appointments or from getting medications? No 09/23 In the past 12 months, has l ack of transportation kept you from meetings, work, or from getting things needed for daily living? No 10/11/2019 Education Answer Date Recorded What is the highest level of school you have completed or the highest degree you have received? Bachelor's degree (e.g., BA, AB, BS) 10/11/2019 Comments No Sex and Gender Information Value Date Recorded Sex Assigned at Not on file Legal Sex Female 1:05 AM ENERGY TRADING ANALYST Gender Identity Female 05/27/2020 12:53 PM ENERGY TRADING ANALYST Sexual Orientation Straight 05/27/2020 12 :53 PM ENERGY TRADING ANALYST documented as of this encounter Plan of Treatment Not on file documented as of this encounter Visit Diagnoses Not on filedocumented in this encounter Care Teams Mixer Tender Relationship Specialty Start Date End Date Fili Arriaga MD [address] [facility] [address] [place] [address] PCP - General 09/07/16 08/23/21 Davian Cardenas MD PCP - General Endocrinology Diabetes & Metabolism 08/24/21 No, Physician 10/13/19 documented as of this encounter
--- OUTSIDE RECORDS SUMMARY | 2025-02-02 21:49 | XMS_ITS | Encounter Summary ---
Author Organization [facility] Address [address] [facility] [place] [address] Care Team Providers Care Adviser Sales Name Role Phone Unavailable Primary Care Provider Unavailabl e Encounter Details Date Type Department Care Team (Late st Contact Info) Description 09/29/2017 Lab Requisition [facility] Care DermPath Lab [address] [place] [id number] Greg [address] MD [address] [place] [address] Social History Tobacco Use Types Packs/Day Years Used Date Smoking Tobacco: Never Assessed Comments Unknown Sex and Gender Information Value Date Recorded Sex Assigned at Not on file Legal Sex Female 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 Gender Identity Not on file Sexual Orientation Not on file documented as of this encounter Plan of Treatment Not on file documented as of this encounter Procedures Procedure Name Priority Date/Time Associated Diagnosis Comments DERMATOPATHOLOGY Routine 09/28/2017 12:0 0 AM CDT documented in this encounter Results * DERMATOPATHOLOGY (09/28/2017 12:00 AM CDT) Case Report Dermatopathology Report Case: [id number] Authorizing Provider: Greg St MD Collected: 09/28/2017 12:00 AM Pathologist: Una Carroll MD Received: 09/29/2017 12:33 PM Specimen: Skin, above left brow 8 1:06 PM CDT DERMATOPATHOLOGY LABORATORY Final Diagnosis Specimen A. 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 Check margins. 1:06 PM CDT DERMATOPATHOLOGY LABORATORY Gross Description Specimen A: Received is one formalin filled container labeled with the patient's name and designated above left brow. The specimen consists of a shave biopsy measuring [id number]. The margin is inked green. Jar 0. 1:06 PM CDT DERMATOPATHOLOGY LABORATORY Microscopic Description Specimen A. SKIN, above left brow: Sections show nests, cords, and strands of cytologically bland melanocytes that mature with descent into the dermis. There are areas in which the melanocytes have a neuroid appearance. This lesion is present at the margin of the specimen. 1:06 PM CDT DERMATOPATHOLOGY LABORATORY Disclaimer An external and internal positive and negative controls are appropriate for the histochemical, immunohistochemical and immunofluorescence stain(s) in this case (if any), except where stated explicitly. The performance characteristics of the stain(s) cited in this report were developed and its performance characteristic determined by the Dermatopathology Laboratory at [facility]. These tests need not be, and therefore are not, approved by the [place] Food and Drug Administration. The tests are used for clinical purposes. Billing Codes Specimen Charges Stain Charges 76642 1 1:06 PM CDT DERMATOPATHOLOGY LABORATORY Embedded Images 1:06 PM CDT DERMATOPATHOLOGY LABORATORY Pathology/Cytolog y TISSUE SPECIMEN FROM SKIN / Unknown 09/28/2017 09/29/2017 12:[address] MD LAB - PATHOLOGY/CYTOLOGY ORD ERABLES Final Result DERMATOPATHOLOGY LABORATORY [facility] - Department of Dermatology [address] [place] [address], [address] [place] [address], [facility] [phone] documented in this encounter Visit Diagnoses Not on filedocumented in this encounter
--- OUTSIDE RECORDS SUMMARY | 2025-02-02 21:49 | XMS_ITS | Encounter Summary ---
Author Organization [facility] Address [address] [place] [address] Care Team Providers Care Furniture Refinisher Name Role Phone Fili Arriaga MD Primary Care Provider [phone] No, Physician Unavailable Davian Cardenas MD Primary Care Provider Reason for Referral * Diagnostic Imaging (Routine) - Closed Specialty Diagnoses / Procedures Referred By Contac t Referred To Contact Diagnoses Age-related osteoporosis with current pathological fracture, initial encounter Procedures Dexa Axial Skeleton Bone Density 1 or 2 Site Fili Arriaga MD Phone: tel: fax: [address] [address] Referral ID Status Reason Start Date Expiration Date Visits Re quested Visits Authorized [id number] Closed 12/02/2017 06/13/2019 1 1 * Diagnostic Imaging (Routine) - Closed Specialty Diagnoses / Procedures Referred By Contac t Referred To Contact Diagnoses H/O: asbestos exposure Cough Procedures XR Chest Pa Lateral 2 Views Fili Arriaga MD Phone: tel: fax: [facility] [address] [place] [address] Referral ID Status Reason Start Date Expiration Date Visits Re quested Visits Authorized [id number] Closed 12/02/2017 06/13/2019 1 1 Encounter Details Date Type Department Care Team (Late st Contact Info) Description 12/02/2017 Community Orders [facility] EpicCare Link Fili Arriaga MD [address] [facility] [address] [place] [address] H/O: asbestos exposure (Primary Dx); Cough; Age-related osteoporosis with current pathological fracture, initial encounter Social History Tobacco Use Types Packs/Day Years Used Date Smoking Tobacco: Former Comments Unknown Sex and Gender Information Value Date Recorded Sex Assigned at Not on file Legal Sex Female 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 The bone mineral density of the lumbar spine is normal. There has been no significant change in bone mineral density since the baseline examination of 09/07/2016. 2. The bone mineral density of the left femoral neck is mildly decreased. There has been no significant change in bone mineral density since the baseline examination of 04/23/1998. There is however significant decrease (4.4%) compared to previous study from 09/07/2016. 3. The bone mineral density of the left total hip is mildly decreased. There has been no significant change in bone mineral density since the baseline examination of 04/23/1998. 4. Overall, the above findings are diagnostic of low bone mass (osteopenia) by WHO criteria. 5. Calculation of fracture risk using the FRAX model is not appropriate in certain settings. It was not performed in this patient because the patient met the following condition(s): Interfering medications, patient is on bisphosphonates. General comments regarding interpretation of bone density measurements: A) In children, premenopausal woman and males under age 50 not at increased risk for fractures only Z-scores, not T-scores are used to indicate risk. A Z-score above -2.0 is defined as within the expected range for age and Z-score at or less than -2.0 is below the expected range for age. A Z-score below the expected range for age in a patient with recent fractures and/or chronic corticosteroid treatment is consistent with a diagnosis of osteoporosis. B) In post menopausal women and males over 50, comparison of the measured bone mineral density with the average value in young normal subjects (the T-score) has been found to be useful in assessing fracture risk. Fracture risk approximately doubles for each 1.0 standard deviation (SD) in individual's hip or spine bone mineral density is below the average value of young normal subjects. The World Health Organization (WHO) has defined T-scores of -1.0 to -2.5 as diagnostic of low bone mass (OSTEOPENIA), and T-scores of -2.5 or lower to be diagnostic of OSTEOPOROSIS, based on the site of lowest bone density. Note that there will be a change in reporting format and reference databases as patients move from the younger population (group A) to the older population (group B) The National Osteoporosis Foundation (www.nof.org) recommends adequate intake of calcium and vitamin D and regular weight-bearing exercise in all patients. They recommend pharmacologic treatment in postmenopausal women and men age 50 and older presenting with any of the followin) Osteoporosis, after appropriate evaluation to exclude secondary causes. 2) A hip or vertebral (clinical or radiographic) fracture, regardless of the bone density. 3) Low bone mass (Osteopenia) and one or more of: other prior fractures, secondary causes associated with high risk of fracture (such as glucocorticoid use or total immobilization), or computed high risk of fracture (10-yr probability of hip fracture >= 3% or a 10-yr probability of any major osteoporosis-related fracture >= 20% based on the [place].-adapted WHO algorithm), available at http://www.shef.ac.uk/FRAX). Electronically signed by: Ramez Lazaro M.D. Narrative 12/30/2017 2:25 PM CDT BONE DENSITOMETRY OF THE SPINE AND HIP DATE OF STUDY: 12/30/2017 HISTORY: 82-year-old postmenopausal woman with osteopenia. She is being treated with Calcium, Vitamin D, Boniva. Evaluate bone mineral density. Additional risk factors for fracture: none. FINDINGS (SPINE): The bone mineral density of L3, L4 was assessed by dual-energy x-ray absorptiometry. The average bone mineral density within this region is 0.992 gm/sq-cm. This is 1.9 standard deviations above the mean of the average bone mineral density for age- and gender-matched subjects (the Z-score). It is 1.0 standard deviations below the mean peak bone mineral density in young adults (the T-score). FINDINGS (FEMORAL NECK): The bone mineral density of the left femoral neck was assessed by dual-energy x-ray absorptiometry. The average bone mineral density within the femoral neck region is 0.649 gm/sq-cm. This is 0.5 standard deviations above the mean of the average bone mineral density for age- and gender-matched subjects (the Z-score). It is 1.8 standard deviations below the mean peak bone mineral density in young adults (the T-score). FINDINGS (TOTAL HIP): The bone mineral density of the left hip was assessed by dual-energy x-ray absorptiometry. The average bone mineral density within the total hip region is 0.718 gm/sq-cm. This is 0.3 standard deviations above the mean of the average bone mineral density for age- and gender-matched subjects (the Z-score). It is 1.8 standard deviations below the mean peak bone mineral density in young adults (the T-score). SUMMARY OF CURRENT RESULTS: Region BMD T-score Z-score AP Spine (L3, L4) 0.992 -1.0 1.9 Femoral Neck (Left) 0.649 -1.8 0.5 Total Hip (Left) 0.718 -1.8 0.3 COMPARISON WITH PREVIOUS RESULTS Region Age BMD T-score BMD Change BMD Change Exam Date g/cm2 vs Baseline vs Previous AP Spine (L3-L4) 12/30/2017 82 0.992 -1.0 1.9% 1.9% 09/07/2016 81 0.973 -1.2 Femoral Neck(Left) 12/30/2017 82 0.649 -1.8 2.0%# -4.4%* 09/07/2016 81 0.679 -1.5 6.8%# 6.8%# 04/23/1998 63 0.636 -1.9 Total Hip(Left) 12/30/2017 82 0.718 -1.8 -3.3%# 0.6% 09/07/2016 81 0.714 -1.9 -3.9%# -3.9%# 04/23/1998 63 0.743 -1.6 *Denotes significance at 95% confidence level # Denotes dissimilar scan types or analysis methods Procedure Note Ramez Lazaro MD - 12/30/2017 BONE DENSITOMETRY OF THE SPINE AND HIP DATE OF STUDY: 12/30/2017 HISTORY: 82-year-old postmenopausal woman with osteopenia. She is being treated with Calcium, Vitamin D, Boniva. Evaluate bone mineral density. Additional risk factors for fracture: none. FINDINGS (SPINE): The bone mineral density of L3, L4 was assessed by dual-energy x-ray absorptiometry. The average bone mineral density within this region is 0.992 gm/sq-cm. This is 1.9 standard deviations above the mean of the average bone mineral density for age- and gender-matched subjects (the Z-score). It is 1.0 standard deviations below the mean peak bone mineral density in young adults (the T-score). FINDINGS (FEMORAL NECK): The bone mineral density of the left femoral neck was assessed by dual-energy x-ray absorptiometry. The average bone mineral density within the femoral neck region is 0.649 gm/sq-cm. This is 0.5 standard deviations above the mean of the average bone mineral density for age- and gender-matched subjects (the Z-score). It is 1.8 standard deviations below the mean peak bone mineral density in young adults (the T-score). FINDINGS (TOTAL HIP): The bone mineral density of the left hip was assessed by dual-energy x-ray absorptiometry. The average bone mineral density within the total hip region is 0.718 gm/sq-cm. This is 0.3 standard deviations above the mean of the average bone mineral density for age- and gender-matched subjects (the Z-score). It is 1.8 standard deviations below the mean peak bone mineral density in young adults (the T-score). SUMMARY OF CURRENT RESULTS: Region BMD T-score Z-score AP Spine (L3, L4) 0.992 -1.0 1.9 Femoral Neck (Left) 0.649 -1.8 0.5 Total Hip (Left) 0.718 -1.8 0.3 COMPARISON WITH PREVIOUS RESULTS Region Age BMD T-score BMD Change BMD Change Exam Date g/cm2 vs Baseline vs Previous AP Spine (L3-L4) 12/30/2017 82 0.992 -1.0 1.9% 1.9% 09/07/2016 81 0.973 -1.2 Femoral Neck(Left) 12/30/2017 82 0.649 -1.8 2.0%# -4.4%* 09/07/2016 81 0.679 -1.5 6.8%# 6.8%# 04/23/1998 63 0.636 -1.9 Total Hip(Left) 12/30/2017 82 0.718 -1.8 -3.3%# 0.6% 09/07/2016 81 0.714 -1.9 -3.9%# -3.9%# 04/23/1998 63 0.743 -1.6 *Denotes significance at 95% confidence level # Denotes dissimilar scan types or analysis methods IMPRESSION: 1. The bone mineral density of the lumbar spine is normal. There has been no significant change in bone mineral density since the baseline examination of 09/07/2016. 2. The bone mineral density of the left femoral neck is mildly decreased. There has been no significant change in bone mineral density since the baseline examination of 04/23/1998. There is however significant decrease (4.4%) compared to previous study from 09/07/2016. 3. The bone mineral density of the left total hip is mildly decreased. There has been no significant change in bone mineral density since the baseline examination of 04/23/1998. 4. Overall, the above findings are diagnostic of low bone mass (osteopenia) by WHO criteria. 5. Calculation of fracture risk using the FRAX model is not appropriate in certain settings. It was not performed in this patient because the patient met the following condition(s): Interfering medications, patient is on bisphosphonates. General comments regarding interpretation of bone density measurements: A) In children, premenopausal woman and males under age 50 not at increased risk for fractures only Z-scores, not T-scores are used to indicate risk. A Z-score above -2.0 is defined as within the expected range for age and Z-score at or less than -2.0 is below the expected range for age. A Z-score below the expected range for age in a patient with recent fractures and/or chronic corticosteroid treatment is consistent with a diagnosis of osteoporosis. B) In post menopausal women and males over 50, comparison of the measured bone mineral density with the average value in young normal subjects (the T-score) has been found to be useful in assessing fracture risk. Fracture risk approximately doubles for each 1.0 standard deviation (SD) in individual's hip or spine bone mineral density is below the average value of young normal subjects. The World Health Organization (WHO) has defined T-scores of -1.0 to -2.5 as diagnostic of low bone mass (OSTEOPENIA), and T-scores of -2.5 or lower to be diagnostic of OSTEOPOROSIS, based on the site of lowest bone density. Note that there will be a change in reporting format and reference databases as patients move from the younger population (group A) to the older population (group B) The National Osteoporosis Foundation (www.nof.org) recommends adequate intake of calcium and vitamin D and regular weight-bearing exercise in all patients. They recommend pharmacologic treatment in postmenopausal women and men age 50 and older presenting with any of the followin) Osteoporosis, after appropriate evaluation to exclude secondary causes. 2) A hip or vertebral (clinical or radiographic) fracture, regardless of the bone density. 3) Low bone mass (Osteopenia) and one or more of: other prior fractures, secondary causes associated with high risk of fracture (such as glucocorticoid use or total immobilization), or computed high risk of fracture (10-yr probability of hip fracture >= 3% or a 10-yr probability of any major osteoporosis-related fracture >= 20% based on the [place].-adapted WHO algorithm), available at http://www.shef.ac.uk/FRAX). Electronically signed by: Ramez Lazaro M.D. Fili Arriaga MD IM DXA PROCEDURES Final Resul t * XR Chest Pa Lateral 2 Views (12/02/2017 1:08 PM CDT) Anatomical Region Laterality Modality Body, Chest N/A Computed Radiogr aphy 12/02/2017 1:48 PM CDT Impressions 12/02/2017 1:50 PM CDT Comparison to 02/14/2013. 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 There is unchanged left hemithorax volume loss. No radiographic evidence of calcified pleural plaques. No pulmonary edema, pleural effusion, or pneumothorax. The cardiac silhouette and mediastinal contours are stable. Electronically signed by: Kimmie Williamson M.D. Narrative 12/02/2017 1:50 PM CDT EXAMINATION: 2 view chest radiograph Procedure Note Kimmie Williamson MD - 12/02/2017 EXAMINATION: 2 view chest radiograph IMPRESSION: Comparison to 02/14/2013. 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 There is unchanged left hemithorax volume loss. No radiographic evidence of calcified pleural plaques. No pulmonary edema, pleural effusion, or pneumothorax. The cardiac silhouette and mediastinal contours are stable. Electronically signed by: Kimmie Williamson M.D. Fili Arriaga MD IMG XR PROCEDURES Final Result documented in this encounter Visit Diagnoses Diagnosis H/O: asbestos exposure- Primary Personal history of contact with and (suspected) exposure to asbestos Cough Age-related osteoporosis with current pathological fracture, initial encounter H/O: asbestos exposure Personal history of contact with and (suspected) exposure to asbestos Cough Age-related osteoporosis with current pathological fracture, initial encounter documented in this encounter Care Teams Furniture Refinisher Relationship Specialty Start Date End Date Fili Arriaga MD [address] [facility] [address] [place] [address] PCP - General 09/07/16 08/23/21 Davian Cardenas MD PCP - General Endocrinology Diabetes & Metabolism 08/24/21 No, Physician 10/13/19 documented as of this encounter
--- OUTSIDE RECORDS SUMMARY | 2025-02-02 21:49 | XMS_ITS | Encounter Summary ---
Author Organization [facility] Address [address] [place] [address] Phone Care Team Providers Care Sanitation Worker Cleaning Equipment Name Role Phone No, Physician Unavailable Davian Cardenas MD Primary Care Provider Encounter Details Date Type Department Care Team (Late st Contact Info) Description 11/03/2021 Treatment [facility] Medicine Infusion Therapy [address] [facility] Advanced Medicine 5th [place] [address] [place] [address] Stephy Schwartz RN Social History Tobacco Use Types Packs/Day Years Used Date Smoking Tobacco: Never Smokeless Tobacco: Never Alcohol Use Standard Drinks/Week [...] How often do you attend chur or christianity services? More than 4 times per year 10/11/2019 Do you belong to any clubs o r organizations such as samaritan groups, unions, fraternal or athletic groups, or [...] and heating? 

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
--- OUTSIDE RECORDS SUMMARY | 2025-02-02 21:49 | XMS_ITS | Clinical Summary ---
Author Organization [facility] Address [address] [place] [address] Care Team Providers Care Polysomnographic Tech Name Role Phone Unavailable Primary Care Provider Unavailabl e Source Comments [facility],non-owned Affiliates and Associated Physician Practices is amultiple site organization consisting of ambulatory clinics and hospital sitesin [place], [place], [place] and [place]. This disclosure is being madepursuant to the Care Everywhere program and may not contain all information available regarding this patient. Last updated 18.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[employer] Gender Identity Not on file Sexual Orientation Not on file Plan of Treatment Health Maintenance Due Date Last Done Comments BONE DENSITY TESTING 1935 DTAP/TDAP/TD VACCINES (1 - Tdap) 01/19/1956 PNEUMOCOCCAL VACCINE 50+ (1 of 1 - PCV) 1987 ZOSTER VACCINE (1 of 2) 1987 Respiratory Syncytial Virus (RSV) Vaccine Pt: or over 60 yrs (1 - 1-dose 75+ series) 01/19/2012 DEPRESSION SCREENING 04/25/2024 COVID-19 VACCINE (1 - 2023-2 5 season) 2024 INFLUENZA VACCINE (#1) 2024 HEPATITIS B VACCINE Aged Out No longe r eligible based on patient's age to complete this topic HIB VACCINE Aged Out No longer eligi ble based on patient's age to complete this topic HPV VACCINE Aged Out No longer eligi ble based on patient's age to complete this topic MENINGOCOCCAL (Group B) VACC INE SHARED DECISION-MAKING Aged Out No longer eligibl e based on patient's age to complete this topic MENINGOCOCCAL GROUPS A/C/Y/W VACCINE Aged Out No longer eligible b ased on patient's age to complete this topic Insurance [employer] MANAGED MEDICARE ADV
[2025-02-02 22:17] LABS: Hematocrit 36.7 % (37.0-47.0); Hemoglobin 11.8 g/dL (12.0-15.0); Immature Granulocyte Percent A 0.5 % (0-0.5); Lymphocytes Absolute Auto 1.53 K/mm3 (0.9-3.2); Mean Corpuscular HGB Conc 32.2 g/dl (32-36); Mean Corpuscular Hemoglobin 28.5 pg (26-34); Mean Corpuscular Volume 88.6 fl (80-100); Nucleated Red Blood Cells Absolute Auto 0.000 K/mm3 (0.0-0.012); Nucleated Red Blood Cells Perc 0.0 % (0.0-0.2); Platelet Count Result 240 k/mm3 (150-375); Red Blood Count 4.14 M/mm3 (4.2-5.4); White Blood Count 12.9 K/mm3 (4.5-10.0)
[2025-02-02 22:31] VITALS: PULSE 99; RESP 24; O2SAT 92
[2025-02-02 22:36] LABS: INR 0.8; Partial Thromboplastin Time 24.5 Seconds (22.3-36.8); Prothrombin Time 11.8 Seconds (11.1-14.7)
[2025-02-02 22:37] LABS: Alanine Aminotransferase 21 U/L (6-35); Albumin Level 3.9 g/dL (3.5-5.1); Alkaline Phosphatase 89 U/L (38-126); Anion Gap 9 mmol/L (4-12); Aspartate Amino Transferase 32 U/L (14-36); Bilirubin,Total 0.4 mg/dL (0.2-1.3); Blood Urea Nitrogen 14 mg/dL (7-17); Calcium 8.8 mg/dL (8.4-10.2); Carbon Dioxide 23 mmol/L (22-30); Chloride 101 mmol/L (98-107); Creatine Kinase 82 U/L (30-135); Estimated Glomerular Filt Rate > 60; Glucose 128 mg/dL (65-110); Lipase 166 U/L (23-300); Magnesium 2.0 mg/dL (1.6-2.3); Potassium 4.0 mmol/L (3.4-5.0); Sodium 133 mmol/L (137-145); Total Protein 7.2 g/dL (6.3-8.2)
[2025-02-02 22:44] LABS: Troponin I < 0.012 ng/mL (0.000-0.034)
[2025-02-02 22:49] LABS: Add Urine Microscopic? YES; Appearance Urine Clear (Clear); Glucose Urine UA Negative (Negative); Leukocyte Esterase Ur Negative LEU/UL (Negative); Nitrate Urine Negative (Negative); Non Pathogenic Casts 0-2; Specific Grav Ur 1.012 (1.001-1.035)
[2025-02-02 22:53] LABS: Influenza A QL RT-PCR Negative (Negative); Influenza B QL RT-PCR Negative (Negative); RSV RNA, RT-PCR Negative (Negative); SARS-CoV-2 RNA PCR Negative (Negative)
[2025-02-02 23:06] LABS: Thyroid Stimulating Hormone Reflex 1.010 uIU/mL (0.465-4.68)
[2025-02-02] MEDS: cefTRIAXone 1 GM in SODIUM CHLORIDE 0.9% IV 50 ML 100 ML IVPB (23:26)
[2025-02-03] VITALS (8 sets, daily range): BP systolic 138–160; BP diastolic 63–78; PULSE 95–120; RESP 16–30; TEMP 36–37.2; O2SAT 93–97; BMI 24.7
[2025-02-03] MEDS: DOXYCYCLINE IV 100 MG in SODIUM CHLORIDE 0.9% IV 100 ML IVPB ×3 (00:14→22:47)
[2025-02-03] MEDS: SODIUM CHLORIDE 0.9% IV 1,000 ML 125 ML IV CONT ×2 (00:19→08:41)
--- NOTE | 2025-02-03 01:15 | ADMGEN ---
This patient, Isabella Malcolm, was admitted to [facility] Surg Room 332-01. Patient/family oriented to hospital policies and general routines including ID bracelet, bed and alarms, visiting hours, pain management, procedures, bathroom and other care routines, personal items, smoking policy, room service/diet, and visiting hours. Information on how to activate the Rapid Response Team has been discussed. Patient/Family are encouraged to report perceived risks to care and to ask questions if they do not understand what they are told or what they should do.
--- NOTE | 2025-02-03 03:48 | PM.IMHP ---
H&P: HPI History of Present Illness Date/Time: 02/03/25 03:48 Chief Complaint: Fall with right arm and hip pain Narrative: 89-year-old female with a past medical history of mild dementia, hypothyroidism, and glaucoma who presented to the ER from [facility] via EMS after ground level fall resulting in right hip and right elbow pain. Patient reports that she was trying to get up from the toilet with her walker and fell. There was not a staff member with her when she fell. She denies hitting her head or having any loss of consciousness. She reported any right elbow pain and right thigh pain. She reports her pain is about a 6/10 in intensity after [place] and 1 dose morphine. She does not want any additional pain medication. She does have some conversational tachypnea noted during evaluation but denies any significant shortness of breath or recent cough. She is now a fevers or chills. She has not been having any chest pain. She does not have a history of CHF in has no localizing edema to suggest heart failure. She had a negative COVID, flu and RSV PCR in the ER. She denies any recent urinary symptoms. Review of Systems Review of Systems: 12 systems were reviewed with pertinent positives and negatives per HPI. Except as documented in the HPI, all other systems were reviewed and are negative. [facility] Past Medical History Medical History (Updated 02/03/25 @ 04:05 by Denise Grant DO) Osteoporosis Vitamin D deficiency Hyperlipidemia Hypothyroidism Glaucoma Dementia Surgical History Surgical History (Updated 02/03/25 @ 03:56 by Denise Grant DO) Status post cataract extraction of both eyes with insertion of intraocular lens History of thyroidectomy Family History Family History Mother Family history of malignant neoplasm of breast in first degree relative Grandparent Family history of malignant neoplasm of male breast Social History Social History (Updated 02/03/25 @ 03:59 by Denise Grant DO) Social History: The patient resides at [facility]. She is . She raised 4 children 3 of which are . She is a lifelong nonsmoker does not drink alcohol. She ambulates with a walker. 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 Code status: Full code Surrogate decision maker: Daughter Smoking status: Never smoker Second hand tobacco smoke exposure: No Alcohol intake: never Substance use: never Lack of Transportation: No Lack of Food: Never True Current Housing: I Have Housing Concerned About Future Housing: No Difficulty Paying Gas/Electric Bills: No Difficulty Paying for Meds: No Currently Unemployed: No Education: Master's Degree or Higher Difficulty w/ Childcare or Family Care: No Gender identity (if verbalized by the patient): Female Spiritual care concerns: No Meds Home Medications and Allergies Home Medications ?Medication ?Instructions ?Recorded ?Confirmed ?Type donepezil 10 mg tablet 10 mg PO DAILY 02/02/25 02/03/25 History levothyroxine 112 mcg tablet 112 mcg PO DAILY@0630 02/02/25 02/03/25 History methenamine hippurate 1 gram tablet 1 g PO Q12H 02/02/25 02/03/25 History simvastatin 20 mg tablet 20 mg PO QPM 02/02/25 02/03/25 History timolol maleate 0.5 % eye drops 1 drp EACH EYE DAILY 02/02/25 02/03/25 History calcium carbonate 600 mg PO DAILY@1700 02/03/25 02/03/25 History cholecalciferol (vitamin D3) 25 25 mcg PO DAILY 02/03/25 02/03/25 History mcg (1,000 unit) tablet folic acid 400 mcg tablet 400 mcg PO DAILY 02/03/25 02/03/25 History glucosamine sulfate 500 mg capsule 500 mg PO QID 02/03/25 02/03/25 History gwvffwja-[id number]-[id number] 8 mg-folic 400 1 tablet PO . daily 02/03/25 02/03/25 History mcg-K 50 mcg-lutein 300 mcg tablet (Centrum Silver Women) vitamin E (dl, acetate) 450 mg 450 mg PO DAILY@0800 02/03/25 02/03/25 History (1,000 unit) capsule Allergies Allergy/AdvReac Type Severity Reaction Status Date / Time meperidine (From Demerol) Allergy Severe Other Verified 02/03/25 02:07 ANESTHIA MED Allergy Severe TROUBLE Uncoded 02/03/25 02:00 BREATHING Vital Signs Vital Signs - 24 hr 02/02/25 20:32 02/02/25 22:31 02/03/25 00:12 Temperature 98.1 F Pulse Rate 112 H 99 96 Respiratory Rate 25 H 24 H 23 H Blood Pressure 185/118 H 150/73 H Pulse Oximetry 94 92 96 Oxygen Delivery Room Air 02/03/25 00:15 02/03/25 00:57 02/03/25 01:50 Temperature 96.8 F L Pulse Rate 95 101 H 99 Respiratory Rate 26 H 24 H 20 Blood Pressure 148/73 H 160/78 H 138/63 Pulse Oximetry 97 94 95 Oxygen Delivery 02/03/25 02:18 Temperature Pulse Rate 99 Respiratory Rate 20 Blood Pressure Pulse Oximetry 95 Oxygen Delivery Room Air Exam Narrative: Weight 67.4 kg BMI 24.7 Const: Other: No acute distress, sitting upright in bed, appears stated age HENMT: Other: Mucous membranes are tacky, no oral pharyngeal erythema, head is normocephalic atraumatic Eyes: Other: Pupils are equal and reactive, bilateral lens implants noted, Neck: Other: Neck is held in flexion, no tenderness of palpation, no lymphadenopathy, no thyromegaly Resp: Other: Conversational tachypnea, clear to auscultation bilaterally Cardio: Other: Regular rate, regular rhythm, 2+ left radial pulse, 2+ bilateral pedal pulses, no JVD GI: Other: Soft, nontender, nondistended, normoactive bowel sounds : Other: Vitale catheter in place with clear yellow urine draining Skin: Other: Mild pallor, non jaundice Neuro: Other: Patient is alert oriented to person, place, month and situation, she was confused as to the name of the president and stated that the year was 1974, she has intact sensation of all extremities and cranial nerves appear to be grossly intact. Extrem: Other: Right lower extremity is held in external rotation and shortened, distal extremity is neurovascularly intact, right upper extremity is in a soft splint with 2-3 second cap refill of fingers, with intact sensation Psych: Other: Appropriate mood and affect, pleasant and cooperative H&P: Results Labs Labs: Laboratory Tests 02/02/25 22:04 02/02/25 22:04 02/02/25 02/02/25 22:04 22:38 WBC 12.9 H RBC 4.14 L Hgb 11.8 L Hct 36.7 L MCV 88.6 MCH 28.5 MCHC 32.2 RDW 16.7 H Plt Count 240 MPV 11.0 H Immature Gran % (Auto) 0.5 Neut % (Auto) 73.0 Lymph % (Auto) 11.9 L [place] % (Auto) 8.1 Eos % (Auto) 5.7 H Baso % (Auto) 0.8 Lymph # (Auto) 1.53 [place] # (Auto) 1.0 H Eos # (Auto) 0.7 H Baso # (Auto) 0.1 Abs Immat Gran (auto) 0.06 H Absolute Neuts (auto) 9.4 H Absolute Nucleated RBC 0.000 Nucleated RBC % 0.0 PT 11.8 INR 0.8 APTT 24.5 Sodium 133 L Potassium 4.0 Chloride 101 Carbon Dioxide 23 Anion Gap 9 BUN 14 Creatinine 0.79 Estim Creat Clear Calc Not Reportable Estimated GFR > 60 Glucose 128 H Lactic Acid 1.1 Calcium 8.8 Magnesium 2.0 Total Bilirubin 0.4 AST 32 ALT 21 Alkaline Phosphatase 89 Total Creatine Kinase 82 Troponin I < 0.012 Total Protein 7.2 Albumin 3.9 Lipase 166 TSH (Reflex) 1.010 Urine Color Yellow Urine Appearance Clear Urine pH 7.5 Ur Specific [place] 1.012 Urine Protein 2+ H Urine Glucose (UA) Negative Urine Ketones Negative Ur Blood (Man) Non-hemolyzed trace H Urine Nitrate Negative Urine Bilirubin Negative Urine Urobilinogen 0.2 Leukocyte Esterase Rfl Negative Urine RBC 3-5 H Urine WBC 0-5 Ur Squamous Epith Cells None seen Urine Bacteria None seen Urine Casts 0-2 Influenza A (RT-PCR) Negative Influenza B (RT-PCR) Negative RSV (RT-PCR) Negative SARS-CoV-2 RNA (RT-PCR) Negative chest x-ray on my review demonstrated bilateral opacities suggestive of possible pneumonia, significant regurgitation, no cardiomegaly CT of the head demonstrated no acute intercranial process severe nonspecific white matter changes with central and peripheral atrophy. Per stat read report Hip and pelvis x-ray on review demonstrated right intratrochanteric fracture and likely probable old pelvic fractures radiologic interpretation pending Right elbow x-ray on my review demonstrated distal olecranon fracture is comminuted and displaced. Radiologic interpretation EKG: Personally reviewed interpreted. Sinus tachycardia with a rate of 106 with possible left atrial enlargement and possible ST depression although ST depression seems to be more due to artifact normal QTC. Cardiology interpretation pending. Assessment and Plan Assessment and plan (1) Closed intertrochanteric fracture: Qualifiers: Encounter type: initial encounter Fracture alignment: displaced Laterality: right Qualified Code(s): S72.141A - Displaced intertrochanteric fracture of right femur, initial encounter for closed fracture Code(s): S72.143A - Displaced intertrochanteric fracture of unspecified femur, initial encounter for closed fracture Status: Acute (2) Closed olecranon fracture: Qualifiers: Encounter type: initial encounter Laterality: right Qualified Code(s): S52.021A - Displaced fracture of olecranon process without intraarticular extension of right ulna, initial encounter for closed fracture Code(s): S52.023A - Displaced fracture of olecranon process without intraarticular extension of unspecified ulna, initial encounter for closed fracture Status: Acute (3) Pneumonia: Qualifiers: Laterality: unspecified laterality Lung location: unspecified part of lung Pneumonia type: due to unspecified organism Qualified Code(s): J18.9 - Pneumonia, unspecified organism Code(s): J18.9 - Pneumonia, unspecified organism Status: Acute (4) Hypothyroidism: Qualifiers: Hypothyroidism type: postoperative Qualified Code(s): E89.0 - Postprocedural hypothyroidism Code(s): E03.9 - Hypothyroidism, unspecified Status: Acute (5) Fall from ground level: Code(s): W18.30XA - Fall on same level, unspecified, initial encounter Status: Acute Plan Patient ground level fall resulting in a right olecranon fracture and right intratrochanteric fracture. She has been placed on morphine as needed for pain. Vitale catheter has been placed due to immobility and is draining well. Orthopedic surgery has been consulted. Patient will be NPO except for meds with sips until evaluated by Orthopedic surgery to determine scheduling of operative procedure. Patient's x-ray is suggestive of pneumonia and she does have some leukocytosis. She has some conversational tachypnea time my evaluation but no hypoxia. Blood cultures were obtained and are pending. The patient has been started empiric antibiotic therapy with Rocephin and doxycycline. Will repeat CBC and electrolyte panel in a.m. Patient has history of thyroidectomy is naproxen which will be continued. Patient has been admitted as observation status. MEDICAL DECISION MAKING NARRATIVE -Spoke with the ED provider in detail regarding patient's evaluation, workup and management -Patient seen and examined at bedside -Collaborated with patient's nurse at the bedside in detail and addressed all concerns -Labs, electrolytes, radiology, investigations and test results personally reviewed and interpreted unless otherwise specified -ED/Consult/Nursing/Ancilliary notes on the chart reviewed and appreciated -Spoke with patient at bedside and diagnosis and plan of care was discussed. All questions answered. Quality VTE Prophylaxis VTE prophylaxis: mechanical ordered (SCDs) Hospitalist MIPS Advance Care Plan I have confirmed that the patient's Advanced Care Plan is present, code status is documented, or surrogate decision maker is listed in patient medical record.: Yes Medication Reconciliation I have utilized all available resources to obtain, update and review the patients current medications (includes all prescriptions, OTC, herbals, cannabis, and nutritional supplements).: Yes
[2025-02-03] MEDS: LEVOTHYROXINE SODIUM 112 MCG TABLET PO (05:53)
[2025-02-03] MEDS: TIMOLOL MALEATE 0.5% OP SOLN 5 ML BOTTLE 1 DROP EACH EYE (08:50)
[2025-02-03] MEDS: FOLIC ACID 0.4 MG TABLET PO (10:25)
--- NOTE | 2025-02-03 11:50 | PCSTNOTE ---
Please refer to the Bedside Swallow Evaluation in the EMR. Please note, silent aspiration cannot be ruled out at bedside.
[2025-02-03] MEDS: ALPRAZolam (*CRX) 0.25 MG TABLET PO (12:00)
--- NOTE | 2025-02-03 12:20 | P.PNIM_ITS ---
Progress Note: A&P Assessment and Plan (1) Closed intertrochanteric fracture: Qualifiers: Encounter type: initial encounter Fracture alignment: displaced Laterality: right Qualified Code(s): S72.141A - Displaced intertrochanteric fracture of right femur, initial encounter for closed fracture Code(s): S72.143A - Displaced intertrochanteric fracture of unspecified femur, initial encounter for closed fracture Status: Acute (2) Closed olecranon fracture: Qualifiers: Encounter type: initial encounter Laterality: right Qualified Code(s): S52.021A - Displaced fracture of olecranon process without intraarticular extension of right ulna, initial encounter for closed fracture Code(s): S52.023A - Displaced fracture of olecranon process without intraarticular extension of unspecified ulna, initial encounter for closed fracture Status: Acute (3) Pneumonia: Qualifiers: Laterality: unspecified laterality Lung location: unspecified part of lung Pneumonia type: due to unspecified organism Qualified Code(s): J18.9 - Pneumonia, unspecified organism Code(s): J18.9 - Pneumonia, unspecified organism Status: Acute (4) Hypothyroidism: Qualifiers: Hypothyroidism type: postoperative Qualified Code(s): E89.0 - Postprocedural hypothyroidism Code(s): E03.9 - Hypothyroidism, unspecified Status: Acute (5) Fall from ground level: Code(s): W18.30XA - Fall on same level, unspecified, initial encounter Status: Acute Plan Patient ground level fall resulting in a right olecranon fracture and right intratrochanteric fracture. She has been placed on morphine as needed for pain. Vitale catheter has been placed due to immobility and is draining well. Orthopedic surgery has been consulted. Patient will be NPO except for meds with sips until evaluated by Orthopedic surgery to determine scheduling of operative procedure. Patient's x-ray is suggestive of pneumonia and she does have some leukocytosis. She has some conversational tachypnea time my evaluation but no hypoxia. Blood cultures were obtained and are pending. The patient has been started empiric antibiotic therapy with Rocephin and doxycycline. Will repeat CBC and electrolyte panel in a.m. Patient has history of thyroidectomy is naproxen which will be continued. Patient has been admitted as observation status. Review H&P, Patient stats pain worsen when she moves, patient will be seen by an orthopedic will have ORIF tomorrow, patient no other complaints, will monitor. Subjective Date/time seen: 02/03/25 12:20 Interval history: Fall with right arm and hip pain H&P-Narrative: 89-year-old female with a past medical history of mild dementia, hypothyroidism, and glaucoma who presented to the ER from [facility] via EMS after ground level fall resulting in right hip and right elbow pain. Patient reports that she was trying to get up from the toilet with her walker and fell. There was not a staff member with her when she fell. She denies hitting her head or having any loss of consciousness. She reported any right elbow pain and right thigh pain. She reports her pain is about a 6/10 in intensity after [place] and 1 dose morphine. She does not want any additional pain medication. She does have some conversational tachypnea noted during evaluation but denies any significant shortness of breath or recent cough. She is now a fevers or chills. She has not been having any chest pain. She does not have a history of CHF in has no localizing edema to suggest heart failure. She had a negative COVID, flu and RSV PCR in the ER. She denies any recent urinary symptoms. Review H&P, Patient stats pain worsen when she moves, patient will be seen by an orthopedic will have ORIF tomorrow, patient no other complaints, will monitor. Review of Systems Review of Systems: 12 systems were reviewed with pertinent positives and negatives per HPI. Except as documented in the HPI, all other systems were reviewed and are negative. Exam Narrative: Elderly frail Patient is comfortable, NAD HEENT: eyes are clear and none icteric LUNGS:CTA HEART: RR S1S2 ABD: BS+, Soft and nontender Lower extremities: no edema MS: right arm in wound dressing SKIN: nonjaundiced Neuro: grossly intact. Objective Data Vital Signs Vital Signs: Vital Signs - 24 hr 02/02/25 20:32 02/02/25 22:31 02/03/25 00:12 Temperature 36.7 C Pulse Rate 112 H 99 96 Respiratory Rate 25 H 24 H 23 H Blood Pressure 185/118 H 150/73 H Pulse Oximetry 94 92 96 Oxygen Delivery Room Air 02/03/25 00:15 02/03/25 00:57 02/03/25 01:50 Temperature 36.0 C L Pulse Rate 95 101 H 99 Respiratory Rate 26 H 24 H 20 Blood Pressure 148/73 H 160/78 H 138/63 Pulse Oximetry 97 94 95 Oxygen Delivery 02/03/25 02:18 02/03/25 06:00 02/03/25 09:00 Temperature 36.2 C L Pulse Rate 99 114 H Respiratory Rate 20 20 Blood Pressure 156/70 H Pulse Oximetry 95 95 Oxygen Delivery Room Air Room Air Intake/Output Intake/Output: Intake & Output 01/31/25 02/01/25 02/02/25 02/03/25 23:59 23:59 23:59 23:59 Intake Total 1050 Output Total 200 Balance 850 Meds/Results Medications: Active Medications Generic Name Dose Route Start Last Admin Trade Name Freq PRN Reason Stop Dose Admin Calcium Carbonate 500 mg 02/03/25 17:00 Calcium Carbonate (Oscal) 500 Mg Tablet PO DAILY@1700 DELMI Donepezil HCl 10 mg 02/03/25 09:00 02/03/25 11:47 Donepezil Hcl 10 Mg Tablet PO Not Given DAILY DELMI Folic Acid 0.4 mg 02/03/25 09:00 02/03/25 10:25 Folic Acid 0.4 Mg Tablet PO 0.4 mg DAILY DELMI Administration Ceftriaxone Sodium 1 gm/ 50 mls @ 100 mls/hr 02/03/25 21:00 Sodium Chloride IVPB Q24H DELMI Doxycycline Hyclate 100 mg/ 100 mls @ 100 mls/hr 02/03/25 11:00 02/03/25 10:25 Sodium Chloride IVPB 02/07/25 11:59 100 mls/hr Q12H DELMI Administration Sodium Chloride 1,000 mls @ 125 mls/hr 02/02/25 23:45 02/03/25 08:41 Normal Saline Iv IV CONT 125 mls/hr .Q8H DELMI Administration Levothyroxine Sodium 112 mcg 02/03/25 06:30 02/03/25 05:53 Levothyroxine Sodium 112 Mcg Tablet PO 112 mcg DAILY@0630 DELMI Administration Morphine Sulfate 2 mg 02/03/25 00:02 Morphine Sulfate (*Crx) 4 Mg/Ml Inj IV PUSH Q2H PRN Pain Rated 7-10 Multivitamins/Calcium 1 tablet 02/03/25 09:00 02/03/25 11:47 Therapeutic Multivitamins/Minerals Tab (*Bkc) PO Not Given DAILY DELMI Methenamine 1 gm 02/03/25 09:00 02/03/25 11:47 Hippurate 1 Gram PO 03/05/25 08:59 Not Given Tablet Will Not Q12H DELMI Scan Non-Formulary Medication 1 each 02/03/25 08:26 Nonformulary Nutritional Supplement XX 02/04/25 08:25 PRN PRN Nonformulary Ondansetron HCl 4 mg 02/02/25 23:59 Ondansetron Inj 4 Mg/2 Ml Vial IV PUSH Q4H PRN Nausea Timolol Maleate 1 drop 02/03/25 09:00 02/03/25 08:50 Timolol Maleate 0.5% Op Soln 5 Ml Bottle EACH EYE 1 drop DAILY DELMI Administration Vitamin D 25 mcg 02/03/25 09:00 02/03/25 11:47 Cholecalciferol (Vitamin D3) 25 Mcg (1,000 Units) Tablet PO Not Given DAILY DELMI Radiology Results: ITS Impressions Head CT 02/03/25 08:34 IMPRESSION: 1. Stable extensive nonspecific cerebral white matter disease, which likely represents chronic small vessel ischemic disease. Cervical Spine CT 02/03/25 09:31 IMPRESSION: 1. No acute fracture. 2. Severe cervical spondylosis. Chest X-Ray 02/03/25 11:07 IMPRESSION: 1. Interstitial changes probably chronic but superimposed pneumonitis or airspace disease not excluded. Labs Labs: Laboratory Results - last 24 hr 02/02/25 02/02/25 22:04 22:38 WBC 12.9 H RBC 4.14 L Hgb 11.8 L Hct 36.7 L MCV 88.6 MCH 28.5 MCHC 32.2 RDW 16.7 H Plt Count 240 MPV 11.0 H Immature Gran % (Auto) 0.5 Neut % (Auto) 73.0 Lymph % (Auto) 11.9 L [place] % (Auto) 8.1 Eos % (Auto) 5.7 H Baso % (Auto) 0.8 Lymph # (Auto) 1.53 [place] # (Auto) 1.0 H Eos # (Auto) 0.7 H Baso # (Auto) 0.1 Abs Immat Gran (auto) 0.06 H Absolute Neuts (auto) 9.4 H Absolute Nucleated RBC 0.000 Nucleated RBC % 0.0 PT 11.8 INR 0.8 APTT 24.5 Sodium 133 L Potassium 4.0 Chloride 101 Carbon Dioxide 23 Anion Gap 9 BUN 14 Creatinine 0.79 Estim Creat Clear Calc Not Reportable Estimated GFR > 60 Glucose 128 H Lactic Acid 1.1 Calcium 8.8 Magnesium 2.0 Total Bilirubin 0.4 AST 32 ALT 21 Alkaline Phosphatase 89 Total Creatine Kinase 82 Troponin I < 0.012 Total Protein 7.2 Albumin 3.9 Lipase 166 TSH (Reflex) 1.010 Urine Color Yellow Urine Appearance Clear Urine pH 7.5 Ur Specific [place] 1.012 Urine Protein 2+ H Urine Glucose (UA) Negative Urine Ketones Negative Ur Blood (Man) Non-hemolyzed trace H Urine Nitrate Negative Urine Bilirubin Negative Urine Urobilinogen 0.2 Leukocyte Esterase Rfl Negative Urine RBC 3-5 H Urine WBC 0-5 Ur Squamous Epith Cells None seen Urine Bacteria None seen Urine Casts 0-2 Influenza A (RT-PCR) Negative Influenza B (RT-PCR) Negative RSV (RT-PCR) Negative SARS-CoV-2 RNA (RT-PCR) Negative Quality VTE Prophylaxis VTE prophylaxis: mechanical ordered (SCDs)
--- NOTE | 2025-02-03 12:34 | PM.CNOR ---
Assessment and Plan Assessment and plan (1) Closed olecranon fracture: Qualifiers: Encounter type: initial encounter Laterality: right Qualified Code(s): S52.021A - Displaced fracture of olecranon process without intraarticular extension of right ulna, initial encounter for closed fracture Code(s): S52.023A - Displaced fracture of olecranon process without intraarticular extension of unspecified ulna, initial encounter for closed fracture Status: Acute (2) Closed intertrochanteric fracture: Qualifiers: Encounter type: initial encounter Fracture alignment: displaced Laterality: right Qualified Code(s): S72.141A - Displaced intertrochanteric fracture of right femur, initial encounter for closed fracture Code(s): S72.143A - Displaced intertrochanteric fracture of unspecified femur, initial encounter for closed fracture Status: Acute Assessment and Plan: GRACE FELL OFF OF HER COMMODE YESTERDAY INJURING HER RIGHT ELBOW AND RIGHT HIP. SHE WAS SEEN IN THE ED AND WAS DIAGNOSED WITH A RIGHT INTERTROCHANTERIC FEMUR FRACTURE AND A COMMINUTED RIGHT OLECRANON FRACTURE. SHE WAS PLACED IN A SPLINT TO THE RIGHT ELBOW. SHE HAS DEMENTIA. HE DENIES ANY OTHER PAIN IN THE NECK BACK OR EXTREMITIES ASIDE FROM THE ABOVE. HISTORY, EXAM AND RADIOGRAPHS REVIEWED WITH THE PATIENT. REFERRING PHYSICIAN RECORDS AND IMAGES REVIEWED. CONDITION, NATURE, ETIOLOGY AND COURSE OF NATURAL HISTORY REVIEWED. CONSERVATIVE AND OPERATIVE TREATMENT OPTIONS REVIEWED WELL THE RISKS AND BENEFITS OF EACH. XRAYS SHOW RIGHT COMMINUTED INTERTROCHANTERIC HIP FRACTURE AND COMMINUTED RIGHT OLECRANON FRACTURE. RECOMMEND RIGHT HIP TROCHANTERIC NAIL AND RIGHT OLECRANON ORIF. DISCUSSED NONOPERATIVE AND OPERATIVE TREATMENT OPTIONS WITH THE PATIENT. THE PATIENT'S QUESTIONS WERE ANSWERED. THE PATIENT DESIRES OPERATIVE TREATMENT. DISCUSSED ____INSERTION OF TROCHANTERIC PAWEL RIGHT FEMUR AND ORIF RIGHT OLECRANON . RISKS OF SURGERY INCLUDING BUT NOT LIMITED TO NEUROVASCULAR DAMAGE, WOUND COMPLICATIONS, BLOOD CLOT, PULMONARY EMBOLUS, STROKE, [place], ANESTHETIC RISKS UP TO AND INCLUDING WERE REVIEWED. CONTINUED PAIN AND POSSIBLE DYSFUNCTION WERE EXPLAINED. NO GUARANTEES WERE OFFERED. THE PATIENT AND FAMILY UNDERSTANDS AND WISHES TO PROCEED. WE TALKED EXTENSIVELY ABOUT HER OLECRANON FRACTURE AND THE POTENTIAL WOUND PROBLEMS WITH ORIF PROCEDURES SUCH SKIN BREAKDOWN AND NON UNION. WE WILL PROCEED ONCE SHE HAS BEEN CLEARED BY THE MEDICINE SERVICE (3) Fall from ground level: Code(s): W18.30XA - Fall on same level, unspecified, initial encounter Status: Acute History of Present Illness HPI Consult date: 02/03/25 Chief complaint: Fall Narrative: GRACE FELL OFF OF HER COMMODE YESTERDAY INJURING HER RIGHT ELBOW AND RIGHT HIP. SHE WAS SEEN IN THE ED AND WAS DIAGNOSED WITH A RIGHT INTERTROCHANTERIC FEMUR FRACTURE AND A COMMINUTED RIGHT OLECRANON FRACTURE. SHE WAS PLACED IN A SPLINT TO THE RIGHT ELBOW. SHE HAS DEMENTIA. HE DENIES ANY OTHER PAIN IN THE NECK BACK OR EXTREMITIES ASIDE FROM THE ABOVE. HISTORY, EXAM AND RADIOGRAPHS REVIEWED WITH THE PATIENT. REFERRING PHYSICIAN RECORDS AND IMAGES REVIEWED. CONDITION, NATURE, ETIOLOGY AND COURSE OF NATURAL HISTORY REVIEWED. CONSERVATIVE AND OPERATIVE TREATMENT OPTIONS REVIEWED WELL THE RISKS AND BENEFITS OF EACH. Review of Systems Review of Systems: All systems reviewed & are unremarkable except as noted in HPI and below PMFSH Past Medical History Medical History Osteoporosis Vitamin D deficiency Hyperlipidemia Hypothyroidism Glaucoma Dementia Surgical History Surgical History Status post cataract extraction of both eyes with insertion of intraocular lens History of thyroidectomy Family History Family History Mother Family history of malignant neoplasm of breast in first degree relative Grandparent Family history of malignant neoplasm of male breast Social History Social History Social History: The patient resides at [facility]. She is . She raised 4 children 3 of which are . She is a lifelong nonsmoker does not drink alcohol. She ambulates with a walker. 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 Code status: Full code Surrogate decision maker: Daughter Smoking status: Never smoker Second hand tobacco smoke exposure: No Alcohol intake: never Substance use: never Lack of Transportation: No Lack of Food: Never True Current Housing: I Have Housing Concerned About Future Housing: No Difficulty Paying Gas/Electric Bills: No Difficulty Paying for Meds: No Currently Unemployed: No Education: Master's Degree or Higher Difficulty w/ Childcare or Family Care: No Gender identity (if verbalized by the patient): Female Spiritual care concerns: No Meds Home Medications and Allergies Home Medications ?Medication ?Instructions ?Recorded ?Confirmed ?Type donepezil 10 mg tablet 10 mg PO DAILY 02/02/25 02/03/25 History levothyroxine 112 mcg tablet 112 mcg PO DAILY@0630 02/02/25 02/03/25 History methenamine hippurate 1 gram tablet 1 g PO Q12H 02/02/25 02/03/25 History simvastatin 20 mg tablet 20 mg PO QPM 02/02/25 02/03/25 History timolol maleate 0.5 % eye drops 1 drp EACH EYE DAILY 02/02/25 02/03/25 History calcium carbonate 600 mg PO DAILY@1700 02/03/25 02/03/25 History cholecalciferol (vitamin D3) 25 25 mcg PO DAILY 02/03/25 02/03/25 History mcg (1,000 unit) tablet folic acid 400 mcg tablet 400 mcg PO DAILY 02/03/25 02/03/25 History glucosamine sulfate 500 mg capsule 500 mg PO QID 02/03/25 02/03/25 History mowkbrjc-amip-urji 8 mg-folic 400 1 tablet PO . daily 02/03/25 02/03/25 History mcg-K 50 mcg-lutein 300 mcg tablet (Centrum Silver Women) vitamin E (dl, acetate) 450 mg 450 mg PO DAILY@0800 02/03/25 02/03/25 History (1,000 unit) capsule Allergies Allergy/AdvReac Type Severity Reaction Status Date / Time meperidine (From Demerol) Allergy Severe Other Verified 02/03/25 02:07 ANESTHIA MED Allergy Severe TROUBLE Uncoded 02/03/25 02:00 BREATHING Vital Signs Vital Signs - 24 hr 02/02/25 20:32 02/02/25 22:31 02/03/25 00:12 Temperature 36.7 C Pulse Rate 112 H 99 96 Respiratory Rate 25 H 24 H 23 H Blood Pressure 185/118 H 150/73 H Pulse Oximetry 94 92 96 Oxygen Delivery Room Air 02/03/25 00:15 02/03/25 00:57 02/03/25 01:50 Temperature 36.0 C L Pulse Rate 95 101 H 99 Respiratory Rate 26 H 24 H 20 Blood Pressure 148/73 H 160/78 H 138/63 Pulse Oximetry 97 94 95 Oxygen Delivery 02/03/25 02:18 02/03/25 06:00 02/03/25 09:00 Temperature 36.2 C L Pulse Rate 99 114 H Respiratory Rate 20 20 Blood Pressure 156/70 H Pulse Oximetry 95 95 Oxygen Delivery Room Air Room Air Exam Back/Spine/Pelvis: Back: no CVA tenderness, No ecchymosis and No back tenderness Cervical Spine: normal cervical lordosis, cervical ROM normal, No pain with cervical ROM and No Cervical spine tenderness Thoracic/Lumbar Spine: thoracic and lumbar spine normal to inspection, thoraco-lumbar ROM normal, No paraspinal muscle tenderness, No thoracic spinal tenderness and No lumbar spinal tenderness Extrem: Right upper extremity: elbow/forearm abnormal to inspection, tenderness, swelling, abnormal ROM, ecchymosis, crepitus and distal pulses intact, wrist normal to inspection and normal ROM; no swelling and Extremity exam: right hand normal to inspection, normal capillary refill, neurosensory exam normal, tendon exam normal and vascular exam radial pulse present, ulnar pulse present and normal capillary refill; no tenderness Left upper extremity: shoulder/upper arm inspection abnormal and normal ROM; no tenderness, elbow/forearm normal to inspection and normal ROM; no tenderness, wrist normal to inspection and normal ROM; no tenderness and hand normal to inspection, neuromotor exam normal, neurosensory exam normal, tendon exam normal and vascular exam radial pulse present and ulnar pulse present; no tenderness Right lower extremity: hip/thigh Details: abnormal to inspection, tenderness, swelling, abnormal ROM Details: pain with active ROM during and pain with passive ROM during, ecchymosis and crepitus; no abrasions and no lacerations, knee Details: normal to inspection and normal ROM; no tenderness and no swelling, lower leg Details: normal to inspection and palpable cord; no tenderness, ankle Details: normal to inspection and normal ROM; no tenderness and no swelling and foot Details: normal capillary refill, normal to inspection, toes with normal ROM and vascular exam Details: dorsalis pedis pulse present and posterior tibial pulse present; no tenderness Left lower extremity: normal to inspection, full ROM, normal capillary refill, hip/thigh Details: normal to inspection and normal ROM; no tenderness, knee Details: normal to inspection and normal ROM; no tenderness, lower leg Details: normal to inspection and palpable cord; no tenderness, ankle Details: normal to inspection and normal ROM; no tenderness and foot Details: normal capillary refill, normal to inspection, toes with normal ROM and vascular exam Details: dorsalis pedis pulse present and posterior tibial pulse present Psych: Appearance: grossly normal Mental Status: mental status grossly normal Speech and movement: Normal speech and movement present Insight: Fair insight present (Psych) Judgement: Fair judgement present (Psych) Results Labs 02/02/25 22:04 02/02/25 22:04 Labs: Abnormal lab results 02/02/25 02/02/25 Range/Units 22:04 22:38 WBC 12.9 H (4.5-10.0) K/mm3 RBC 4.14 L (4.2-5.4) M/mm3 Hgb 11.8 L (12.0-15.0) g/dL Hct 36.7 L (37.0-47.0) % RDW 16.7 H (11.5-14.5) % MPV 11.0 H (7.4-10.4) fl Lymph % (Auto) 11.9 L (18.3-44.2) % Eos % (Auto) 5.7 H (0-4.4) % [place] # (Auto) 1.0 H (0.1-0.6) K/mm3 Eos # (Auto) 0.7 H (0-0.3) K/mm3 Abs Immat Gran (auto) 0.06 H (0.00-0.031) K/mm3 Absolute Neuts (auto) 9.4 H (1.3-6.7) K/mm3 Sodium 133 L (137-145) mmol/L Glucose 128 H (65-110) mg/dL Urine Protein 2+ H (Negative) mg/dL Ur Blood (Man) Non-hemolyzed trace H (Negative) Urine RBC 3-5 H (0-2) /hpf H & H 02/02/25 Range/Units 22:04 Hgb 11.8 L (12.0-15.0) g/dL Hct 36.7 L (37.0-47.0) % Coagulation 02/02/25 Range/Units 22:04 INR 0.8 All other labs normal.
--- NOTE | 2025-02-03 18:36 | PC.NURSE ---
Pt was complaining of hip and elbow pain when I asked if she was hurting. Patient said she had no numbness or tingling just spasms that come and go. I asked her numerous times if I could get her any medication for it to make it better. Patient then stated she doesn't want any medication for it and it doesn't hurt that bad and the pain comes and goes.
[2025-02-03] MEDS: cefTRIAXone 1 GM in SODIUM CHLORIDE 0.9% IV 50 ML 100 ML IVPB (20:42)
[2025-02-03] MEDS: [UNRECOGNIZED DRUG - REMARK] 1 EACH PO (21:00)
[2025-02-04] VITALS (9 sets, daily range): BP systolic 156–165; BP diastolic 52–83; PULSE 108–134; RESP 18–26; TEMP 36.6–37.1; O2SAT 94–100
[2025-02-04] MEDS: SODIUM CHLORIDE 0.9% IV 1,000 ML 125 ML IV CONT ×2 (02:46→15:05)
[2025-02-04] MEDS: LEVOTHYROXINE SODIUM 112 MCG TABLET PO (05:46)
[2025-02-04 06:44] LABS: Hematocrit 29.0 % (37.0-47.0); Hemoglobin 9.2 g/dL (12.0-15.0); Mean Corpuscular HGB Conc 31.7 g/dl (32-36); Mean Corpuscular Hemoglobin 28.5 pg (26-34); Mean Corpuscular Volume 89.8 fl (80-100); Platelet Count Result 189 k/mm3 (150-375); Red Blood Count 3.23 M/mm3 (4.2-5.4); White Blood Count 18.7 K/mm3 (4.5-10.0)
[2025-02-04 07:26] LABS: Anion Gap 8 mmol/L (4-12); Blood Urea Nitrogen 8 mg/dL (7-17); Calcium 8.0 mg/dL (8.4-10.2); Carbon Dioxide 21 mmol/L (22-30); Chloride 101 mmol/L (98-107); Estimated CRCL calculation 49 ml/min; Estimated Glomerular Filt Rate > 60; Glucose 126 mg/dL (65-110); Magnesium 1.9 mg/dL (1.6-2.3); Potassium 3.6 mmol/L (3.4-5.0); Sodium 130 mmol/L (137-145)
--- NOTE | 2025-02-04 10:01 | ECG_ITS ---
Test Date: 2025-02-04 11:52:25 Measurements Intervals [place] Rate: 112 P: 36 VA: 133 QRS: 60 QRSD: 77 T: 49 QT: 345 QTc: 473 Interpretive Statements SINUS TACHYCARDIA ABNORMAL ECG Compared to ECG 02/02/2025 21:42:30 No significant changes Electronically Signed On 02-04-2025 15:52:53 CDT by Nathaniel Benavides D.O.
--- NOTE | 2025-02-04 10:12 | PC.NURSE ---
Dr Blanchard notifed of patient heart rate elevated during assessment. When placed on tele heart rate 120's-130's ST.
[2025-02-04] MEDS: metroNIDAZOLE 500 MG/ISO 100ML 500 MG/100 ML BAG 100 MG IVPB ×2 (11:16→17:24)
[2025-02-04] MEDS: TIMOLOL MALEATE 0.5% OP SOLN 5 ML BOTTLE 1 DROP EACH EYE (11:21)
[2025-02-04] MEDS: DOXYCYCLINE IV 100 MG in SODIUM CHLORIDE 0.9% IV 100 ML IVPB ×2 (12:13→23:20)
--- NOTE | 2025-02-04 15:19 | PCSTNOTE ---
Please refer to the Modified Barium Swallow Evaluation in the EMR. Pt seen his date for a modified barium swallow study (MBS) due to concern for aspiration. Pt with a notable history of dementia and previous speech therapy services at her SNF. Throughout MBS, pt was an unreliable historian of previous swallow history; however, stated that she had previously seen an WARE SERVER at the facility where she stays. The pt was administered thin liquid barium (via tsp and cups sip), mildly thick barium (via tsp and cup sip), moderately thick barium (via tsp, cup sip, and straw sip), and barium pudding during this evaluation. Pt attempted to self-feed trials; however, was not able to bring it to her mouth and required assistance from the WARE SERVER. Pt?s oral stage was notable for lingual pumping and was uncoordinated with thin liquid trials; however, as the evaluation proceeded, lingual pumping was limited. Throughout all trials, the pt?s swallow was notably mistimed, and delayed initiation of the pharyngeal swallowing was noted consistently. Across trials, the swallow was not initiated until a majority of the bolus was in the pyriform sinuses.? This greatly impacted her swallow and resulted in frequent penetration and eventually aspiration with thin liquids, mildly thick liquids, and pudding. With thin liquid trials, deep penetration and aspiration were noted during and after the swallow as penetrated material did not clear the laryngeal vestibule and migrated down. Pt was inconsistently sensate and was unable to clear all penetrated material. With mildly thick trials, trace aspiration was noted x1 during the swallow and material from the vallecula and pyriform sinuses was noted to spill over into the laryngeal vestibule. With moderately thick trials, no aspiration was visualized; however, deep penetration that clears was visualized occasionally due to delayed swallow initiation. Across all liquid consistencies and specifically moderately thick trials, residue was noted to stay above the airway, and she was unable to sense or fully clear this material. Moderate amounts of residue were visualized in vallecula across trials and trace was noted in the pyriform sinuses; however, these amounts were impactful due to the material consistently migrating towards the airway. Residue is due to reduced base of tongue strength, poor pharyngeal wall stripping wave, and reduced laryngeal elevation. During the pudding trial, the entire bolus was noted to make contact with the vocal folds due to significant delayed pharyngeal swallow initiation. She initiated a cough; however, she was unsuccessful in clearing all of the penetrated material and this resulted in mild aspiration. ? At this time, it is recommended that the pt remain NPO and receive ST sessions 3-5x/week to optimize swallow function and regain strength of swallowing muscles. Moderately thick liquid trials in small amounts will be recommended to be completed in therapy due to pt not aspirating this consistency. Ice chips should be provided with RN supervision due to the concern for swallow atrophy due to minimal swallowing at this time.??
--- NOTE | 2025-02-04 15:35 | PM.IMPN ---
Progress Note: A&P Assessment and Plan (1) Closed intertrochanteric fracture: Qualifiers: Encounter type: initial encounter Fracture alignment: displaced Laterality: right Qualified Code(s): S72.141A - Displaced intertrochanteric fracture of right femur, initial encounter for closed fracture Code(s): S72.143A - Displaced intertrochanteric fracture of unspecified femur, initial encounter for closed fracture Status: Acute (2) Closed olecranon fracture: Qualifiers: Encounter type: initial encounter Laterality: right Qualified Code(s): S52.021A - Displaced fracture of olecranon process without intraarticular extension of right ulna, initial encounter for closed fracture Code(s): S52.023A - Displaced fracture of olecranon process without intraarticular extension of unspecified ulna, initial encounter for closed fracture Status: Acute (3) Pneumonia: Qualifiers: Laterality: unspecified laterality Lung location: unspecified part of lung Pneumonia type: due to unspecified organism Qualified Code(s): J18.9 - Pneumonia, unspecified organism Code(s): J18.9 - Pneumonia, unspecified organism Status: Acute (4) Hypothyroidism: Qualifiers: Hypothyroidism type: postoperative Qualified Code(s): E89.0 - Postprocedural hypothyroidism Code(s): E03.9 - Hypothyroidism, unspecified Status: Acute (5) Fall from ground level: Code(s): W18.30XA - Fall on same level, unspecified, initial encounter Status: Acute Plan Patient ground level fall resulting in a right olecranon fracture and right intratrochanteric fracture. She has been placed on morphine as needed for pain. Vitale catheter has been placed due to immobility and is draining well. Orthopedic surgery has been consulted. Patient will be NPO except for meds with sips until evaluated by Orthopedic surgery to determine scheduling of operative procedure. Patient's x-ray is suggestive of pneumonia and she does have some leukocytosis. She has some conversational tachypnea time my evaluation but no hypoxia. Blood cultures were obtained and are pending. The patient has been started empiric antibiotic therapy with Rocephin and doxycycline. Will repeat CBC and electrolyte panel in a.m. Patient has history of thyroidectomy is naproxen which will be continued. Patient has been admitted as observation status. Review H&P, Patient stats pain worsen when she moves, patient will be seen by an orthopedic will have ORIF tomorrow, patient no other complaints, will monitor. patient with comminuted displaced fracture olecranon and comminuted intertrochanteric fracture discussed with her surgeon it will difficulty surgery for her elbow, patient is in pain and appear restless but had been refusing her pain medications, today I discussed with the patient and she has agreed to take the pain medications. patient surgery is scheduled for tomorrow, will follow up and monitor. patient daughter was present and gave updates. Subjective Date/time seen: 02/04/25 15:35 Interval history: Fall with right arm and hip pain H&P-Narrative: 89-year-old female with a past medical history of mild dementia, hypothyroidism, and glaucoma who presented to the ER from [facility] via EMS after ground level fall resulting in right hip and right elbow pain. Patient reports that she was trying to get up from the toilet with her walker and fell. There was not a staff member with her when she fell. She denies hitting her head or having any loss of consciousness. She reported any right elbow pain and right thigh pain. She reports her pain is about a 6/10 in intensity after [place] and 1 dose morphine. She does not want any additional pain medication. She does have some conversational tachypnea noted during evaluation but denies any significant shortness of breath or recent cough. She is now a fevers or chills. She has not been having any chest pain. She does not have a history of CHF in has no localizing edema to suggest heart failure. She had a negative COVID, flu and RSV PCR in the ER. She denies any recent urinary symptoms. Review H&P, Patient stats pain worsen when she moves, patient will be seen by an orthopedic will have ORIF tomorrow, patient no other complaints, will monitor. patient with comminuted displaced fracture olecranon and comminuted intertrochanteric fracture discussed with her surgeon it will difficulty surgery for her elbow, patient is in pain and appear restless but had been refusing her pain medications, today I discussed with the patient and she has agreed to take the pain medications. patient surgery is scheduled for tomorrow, will follow up and monitor. patient daughter was present and gave updates. Review of Systems Review of Systems: 12 systems were reviewed with pertinent positives and negatives per HPI. Except as documented in the HPI, all other systems were reviewed and are negative. Exam Narrative: Elderly frail Patient is comfortable, NAD HEENT: eyes are clear and none icteric LUNGS:CTA HEART: RR S1S2 ABD: BS+, Soft and nontender Lower extremities: no edema MS: right arm in wound dressing SKIN: nonjaundiced Neuro: grossly intact. Objective Data Vital Signs Vital Signs: Vital Signs - 24 hr 02/03/25 20:00 02/03/25 21:46 02/04/25 06:00 Temperature 36.4 C 37.1 C Pulse Rate 120 H 120 H Respiratory Rate 16 20 Blood Pressure 159/78 H 159/81 H Pulse Oximetry 96 95 Oxygen Delivery Room Air 02/04/25 07:33 02/04/25 08:00 02/04/25 12:00 Temperature Pulse Rate 130 H 108 H Respiratory Rate 26 H Blood Pressure 156/52 H Pulse Oximetry 95 Oxygen Delivery Room Air 02/04/25 14:00 Temperature 36.6 C Pulse Rate 117 H Respiratory Rate 18 Blood Pressure 158/71 H Pulse Oximetry 94 Oxygen Delivery Intake/Output Intake/Output: Intake & Output 02/01/25 02/02/25 02/03/25 02/04/25 23:59 23:59 23:59 23:59 Intake Total 2250 1000 Output Total 800 800 Balance 1450 200 Meds/Results Medications: Active Medications Generic Name Dose Route Start Last Admin Trade Name Freq PRN Reason Stop Dose Admin Calcium Carbonate 500 mg 02/03/25 17:00 02/03/25 17:03 Calcium Carbonate (Oscal) 500 Mg Tablet PO Not Given DAILY@1700 [facility] Donepezil HCl 10 mg 02/03/25 09:00 02/04/25 10:36 Donepezil Hcl 10 Mg Tablet PO Not Given DAILY DELMI Folic Acid 0.4 mg 02/03/25 09:00 02/04/25 10:36 Folic Acid 0.4 Mg Tablet PO Not Given DAILY DELMI Ceftriaxone Sodium 1 gm/ 50 mls @ 100 mls/hr 02/03/25 21:00 02/03/25 20:42 Sodium Chloride IVPB 100 mls/hr Q24H DELMI Administration Doxycycline Hyclate 100 mg/ 100 mls @ 100 mls/hr 02/03/25 11:00 02/04/25 12:13 Sodium Chloride IVPB 02/07/25 11:59 100 mls/hr Q12H DELMI Administration Sodium Chloride 1,000 mls @ 125 mls/hr 02/02/25 23:45 02/04/25 15:05 Normal Saline Iv IV CONT 125 mls/hr .Q8H DELMI Administration Metronidazole 500 mg in 100 mls @ 100 mls/hr 02/04/25 10:00 02/04/25 11:16 Flagyl 500 Mg/Iso Soln 100 Ml IVPB 100 mls/hr Q8H DELMI Administration Levothyroxine Sodium 56 mcg 02/05/25 06:30 Levothyroxine Sodium Inj 100 Mcg/5 Ml Vial IV PUSH DAILY@0630 DELMI Morphine Sulfate 2 mg 02/03/25 00:02 Morphine Sulfate (*Crx) 4 Mg/Ml Inj IV PUSH Q2H PRN Pain Rated 7-10 Multivitamins/Calcium 1 tablet 02/03/25 09:00 02/04/25 10:36 Therapeutic Multivitamins/Minerals Tab (*Bkc) PO Not Given DAILY [facility] Methenamine 1 gm 02/03/25 09:00 02/04/25 10:36 Hippurate 1 Gram PO 03/05/25 08:59 Not Given Tablet Will Not Q12H DELMI Scan Ondansetron HCl 4 mg 02/02/25 23:59 Ondansetron Inj 4 Mg/2 Ml Vial IV PUSH Q4H PRN Nausea Timolol Maleate 1 drop 02/03/25 09:00 02/04/25 11:21 Timolol Maleate 0.5% Op Soln 5 Ml Bottle EACH EYE 1 drop DAILY DELMI Administration Vitamin D 25 mcg 02/03/25 09:00 02/04/25 10:36 Cholecalciferol (Vitamin D3) 25 Mcg (1,000 Units) Tablet PO Not Given DAILY [facility] Radiology Results: ITS Impressions Head CT 02/03/25 08:34 IMPRESSION: 1. Stable extensive nonspecific cerebral white matter disease, which likely represents chronic small vessel ischemic disease. Cervical Spine CT 02/03/25 09:31 IMPRESSION: 1. No acute fracture. 2. Severe cervical spondylosis. Chest X-Ray 02/03/25 14:19 Impression: Early bilateral pneumonia Modified Barium Swallow 02/04/25 12:39 IMPRESSION: Oropharyngeal dysphagia with laryngeal penetration and aspiration with multiple consistencies Please correlate with speech pathologist findings and specific feeding recommendations. Labs Labs: Laboratory Results - last 24 hr 02/04/25 06:21 WBC 18.7 H RBC 3.23 L Hgb 9.2 L Hct 29.0 L MCV 89.8 MCH 28.5 MCHC 31.7 L RDW 16.6 H Plt Count 189 MPV 11.2 H Sodium 130 L Potassium 3.6 Chloride 101 Carbon Dioxide 21 L Anion Gap 8 BUN 8 D Creatinine 0.61 L Estim Creat Clear Calc 49 Estimated GFR > 60 Glucose 126 H Calcium 8.0 L Magnesium 1.9 Quality VTE Prophylaxis VTE prophylaxis: mechanical ordered (SCDs)
--- NOTE | 2025-02-04 15:56 | PC.NURSE ---
Patient restless trying to pull off soft arm cast and novak out. Resp 28 per min. Ra sat 94%, and on tele ST 130's. BP 154/70 Dr Blanchard notified, he will come up to see patient.
[2025-02-04] MEDS: MORPHINE SULFATE (*CRX) 4 MG/ML INJ 2 MG IV PUSH (16:17)
[2025-02-04 16:33] LABS: Alveolar/Arterial O2 Gradient 48.4 mmHg; Fractional Inspired Oxygen 28 %; HCO3 ABG 21.2 mEq/l (22.0-26.0); Oxygen Content ABG 12.6 %vol (16.0-22.0); Oxygen Saturation ABG 98.5 % (95.0-100.0); PCO2 ABG 29.9 mmHg (35.0-45.0); PO2 ABG 116.0 mmHg (80.0-100.0); PO2 FiO2 Ratio Arterial Blood 4.14 %
[2025-02-04 16:36] LABS: Liters per Minute 2.0 LPM; Modified Allen's Test Pass; Site Drawn LEFT RADIAL
[2025-02-04] MEDS: cefTRIAXone 1 GM in SODIUM CHLORIDE 0.9% IV 50 ML 100 ML IVPB (20:11)
--- NOTE | 2025-02-04 20:59 | ECG_ITS ---
Test Date: 2025-02-04 21:07:18 Measurements Intervals [place] Rate: 121 P: 59 NE: 140 QRS: 64 QRSD: 77 T: 51 QT: 313 QTc: 446 Interpretive Statements SINUS TACHYCARDIA BORDERLINE ST ABNORMALITY- ANTEROLATERAL LEADS BASELINE ARTIFACT- V1-V2 ABNORMAL ECG Compared to ECG 02/04/2025 11:52:25 ST (T wave) deviation now present Electronically Signed On 02-05-2025 05:40:51 CDT by Nathaniel Benavides D.O.
[2025-02-04] MEDS: LACTATED RINGERS 1,000 ML 999 ML IV CONT (21:58)
[2025-02-05] VITALS (20 sets, daily range): BP systolic 121–157; BP diastolic 50–70; PULSE 84–115; RESP 18–26; TEMP 35.4–37.3; O2SAT 94–100
[2025-02-05] MEDS: metroNIDAZOLE 500 MG/ISO 100ML 500 MG/100 ML BAG 100 MG IVPB ×3 (01:49→23:32)
--- NOTE | 2025-02-05 02:17 | PC.NURSE ---
Pt A&Ox1 with confusion and restlessness noted. Pt attempted to pull out novak, IV, nasal cannula, and undress herself, redirected PRN. Pain assessment completed, Pt denied pain meds. Gauze wrap applied to left forearm I.V. site to secure, circulation/color WNL. Pt able to move fingers willingly, Capillary refill < 3secs. Remains on 2LNC, O2 Sat 96%. Pt noted mouth breathing, snoring. Lung sounds course. No distress noted. Remains Tachycardic.
--- NOTE | 2025-02-05 02:40 | PC.NURSE ---
Pt A&Ox1 with confusion and restlessness noted. Pt attempted to pull out Vitale catheter, IV, nasal cannula, and undress herself, redirected PRN. Pain assessment completed, Pt denied pain meds. Gauze wrap applied to left forearm I.V. site to secure, circulation/color WNL. Pt able to move fingers willingly, Capillary refill < 3secs. Remains on 2LNC, O2 Sat 96%. Pt noted mouth breathing, snoring. Lung sounds course. No respiratory distress noted. HOB elevated. Remains Tachycardia. HR 116. Pt repositioned, made comfortable. Call light within reach. Currently resting in bed watching television.
[2025-02-05] MEDS: SODIUM CHLORIDE 0.9% IV 1,000 ML 125 ML IV CONT (05:00)
[2025-02-05] MEDS: LEVOTHYROXINE SODIUM INJ 100 MCG/5 ML VIAL 56 MCG IV PUSH (05:44)
[2025-02-05 07:15] LABS: Hematocrit 23.9 % (37.0-47.0); Hemoglobin 7.6 g/dL (12.0-15.0); Mean Corpuscular HGB Conc 31.8 g/dl (32-36); Mean Corpuscular Hemoglobin 29.1 pg (26-34); Mean Corpuscular Volume 91.6 fl (80-100); Platelet Count Result 153 k/mm3 (150-375); Red Blood Count 2.61 M/mm3 (4.2-5.4); White Blood Count 17.6 K/mm3 (4.5-10.0)
[2025-02-05] MEDS: TRANEXAMIC ACID 1,000MG/ISO100 1,000 MG/100 ML BAG 200 MG IVPB (07:25)
[2025-02-05 08:21] LABS: Anion Gap 4 mmol/L (4-12); Blood Urea Nitrogen 10 mg/dL (7-17); Calcium 7.4 mg/dL (8.4-10.2); Carbon Dioxide 22 mmol/L (22-30); Chloride 103 mmol/L (98-107); Estimated CRCL calculation 54 ml/min; Estimated Glomerular Filt Rate > 60; Glucose 100 mg/dL (65-110); Magnesium 1.8 mg/dL (1.6-2.3); Potassium 3.2 mmol/L (3.4-5.0); Sodium 129 mmol/L (137-145)
--- NOTE | 2025-02-05 08:45 | WPDHPUPDATE1 ---
History and Physical Update Update Date/Time: 02/05/25 08:45 History and Physical has been reviewed, including an updated exam of the patient. There are NO changes in the patient's condition. Risks, benefits, and alternatives have been discussed and questions answered. Patient agrees to proceed with procedure.
--- NOTE | 2025-02-05 08:53 | WPDANESEPPF ---
Anes - Initial Pre Proc Eval Procedure: Operation Date: 02/05/25 08:30 Proposed Procedures p Right Intertrochanteric Nail - Ron Jama MD s Open Reduction Internal Fixation Right Elbow Olecranon Fracture - Ron Jama MD Date/Time: 02/05/25 08:53 Surgeon: Denise Grant DO Pre Op Diagnosis: Fall Patient Data Age: 89 Gender: F Height: 1.65 m Weight: 67.4 kg Last Vital Signs Temp 37.3 C 02/05/25 07:20 Pulse 113 H 02/05/25 07:20 Resp 24 H 02/05/25 07:20 BP 151/57 H 02/05/25 07:20 Pulse Ox 98 02/05/25 07:20 O2 Del Method Nasal Cannula 02/05/25 07:20 O2 Flow Rate 2 02/05/25 07:20 Allergies Allergy/AdvReac Type Severity Reaction Status Date / Time meperidine (From Demerol) Allergy Severe Other Verified 02/05/25 07:37 ANESTHIA MED Allergy Severe TROUBLE Uncoded 02/03/25 02:00 BREATHING Home Medications ?Medication ?Instructions ?Recorded ?Confirmed ?Type donepezil 10 mg tablet 10 mg PO DAILY 02/02/25 02/03/25 History levothyroxine 112 mcg tablet 112 mcg PO DAILY@0630 02/02/25 02/03/25 History methenamine hippurate 1 gram tablet 1 g PO Q12H 02/02/25 02/03/25 History simvastatin 20 mg tablet 20 mg PO QPM 02/02/25 02/03/25 History timolol maleate 0.5 % eye drops 1 drp EACH EYE DAILY 02/02/25 02/03/25 History calcium carbonate 600 mg PO DAILY@1700 02/03/25 02/03/25 History cholecalciferol (vitamin D3) 25 25 mcg PO DAILY 02/03/25 02/03/25 History mcg (1,000 unit) tablet folic acid 400 mcg tablet 400 mcg PO DAILY 02/03/25 02/03/25 History glucosamine sulfate 500 mg capsule 500 mg PO QID 02/03/25 02/03/25 History zeymhwem-bzkj-zanf 8 mg-folic 400 1 tablet PO . daily 02/03/25 02/03/25 History mcg-K 50 mcg-lutein 300 mcg tablet (Centrum [place] [facility]) vitamin E (dl, acetate) 450 mg 450 mg PO DAILY@0800 02/03/25 02/03/25 History (1,000 unit) capsule Laboratory Tests 02/04/25 02/04/25 02/05/25 16:17 21:46 07:10 WBC 17.6 H K/mm3 (4.5-10.0) RBC 2.61 L M/mm3 (4.2-5.4) Hgb 7.6 L g/dL (12.0-15.0) Hct 23.9 L % (37.0-47.0) MCV 91.6 fl (80-100) MCH 29.1 pg (26-34) MCHC 31.8 L g/dl (32-36) RDW 16.7 H % (11.5-14.5) Plt Count 153 k/mm3 (150-375) MPV 11.2 H fl (7.4-10.4) Puncture Site Left radial ABG pH 7.468 H (7.350-7.450) ABG pCO2 29.9 L mmHg (35.0-45.0) ABG pO2 116.0 H mmHg (80.0-100.0) ABG PO2/FiO2 Ratio 4.14 % ABG HCO3 21.2 L mEq/l (22.0-26.0) ABG O2 Saturation 98.5 % (95.0-100.0) ABG O2 Content 12.6 L %vol (16.0-22.0) ABG Base Excess -1.9 mEq/l (+/-2.0) A-a Gradient 48.4 mmHg Oxyhemoglobin 97.5 % THb (90.0-100.0) Total Hemoglobin 9.0 L g/dL (12.0-18.0) O2 Delivery Device Nasal cannula O2 Liters/Min 2.0 LPM FiO2 28 % Sodium 129 L mmol/L (137-145) Potassium 3.2 L mmol/L (3.4-5.0) Chloride 103 mmol/L (98-107) Carbon Dioxide 22 mmol/L (22-30) Anion Gap 4 mmol/L (4-12) BUN 10 mg/dL (7-17) Creatinine 0.55 L mg/dL (0.7-1.0) Estim Creat Clear Calc 54 ml/min Estimated GFR > 60 (59 - ) Glucose 100 mg/dL (65-110) POC Capillary Glucose 135 H mg/dl (65-105) Calcium 7.4 L mg/dL (8.4-10.2) Magnesium 1.8 mg/dL (1.6-2.3) Patient hx anesthesia problems: none Family hx anesthesia problems: none Results Review: All pre-operative results and documents have been reviewed as part of the pre-operative evaluation. [facility] Past Medical History Medical History Osteoporosis Vitamin D deficiency Hyperlipidemia Hypothyroidism Glaucoma Dementia Surgical History Surgical History Status post cataract extraction of both eyes with insertion of intraocular lens History of thyroidectomy Family History Family History Mother Family history of malignant neoplasm of breast in first degree relative Grandparent Family history of malignant neoplasm of male breast Social History Social History Social History: The patient resides at [facility]. She is . She raised 4 children 3 of which are . She is a lifelong nonsmoker does not drink alcohol. She ambulates with a walker. 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 Code status: Full code Surrogate decision maker: Daughter Smoking status: Never smoker Second hand tobacco smoke exposure: No Alcohol intake: never Substance use: never Lack of Transportation: No Lack of Food: Never True Current Housing: I Have Housing Concerned About Future Housing: No Difficulty Paying Gas/Electric Bills: No Difficulty Paying for Meds: No Currently Unemployed: No Education: Master's Degree or Higher Difficulty w/ Childcare or Family Care: No Gender identity (if verbalized by the patient): Female Spiritual care concerns: No Anes - Eval Final PreProcedure Day of Procedure 02/05/25 08:53 Patient weight: normal Heart: tachycardia Lungs: decreased breath sounds Neurological: lethargic Last oral intake: >/= 8 hours ASA classification: IV Emergent: no Anesthetic plan: proceed Anesthesia type and monitoring: general ETT and standard monitoring Results Review: All pre-operative results and documents have been reviewed as part of the pre-operative evaluation. Informed Consent: The patient's anesthetic plan and its attendant risks and benefits were discussed with the patient/family/POA. Questions were solicited and answers provided to the satisfaction of the patient/family/POA.
[2025-02-05] MEDS: SODIUM CHLORIDE 0.9% IV 1,000 ML 30 ML IV CONT ×2 (09:15→14:05)
--- NOTE | 2025-02-05 09:15 | SUR.PREOP ---
Patient delayed to obtain new IV access and draw additional labs per anesthesiologist request so that blood products are available before patient goes back for surgery.
--- NOTE | 2025-02-05 14:07 | W.PM.PROC2 ---
Procedure Note - Detailed Date of Procedure 02/05/25 Pre-op Diagnosis RIGHT INTERTROCHANTERIC FEMUR FRACTURE Post-op Diagnosis Same Procedure Performed INSERTION TROCHANTERIC NAIL RIGHT HIP Surgeon Ron Jama MD Anesthesia General Description of Procedure THE PATIENT WAS TAKEN TO THE OPERATING ROOM AND PLACED ON A FRACTURE TABLE AFTER GIVEN GENERAL ANESTHESIA. THE RIGHT LOWER EXTREMITY WAS PLACED IN A TRACTION BOOT AND USING SOME TRACTION AND INTERNAL ROTATION THE INNER TROCHANTERIC FRACTURE WAS REDUCED TO ANATOMIC POSITION. NEXT THE LEFT LOWER EXTREMITY WAS PREPPED AND DRAPED IN THE STERILE FASHION. AN INCISION WAS MADE PROXIMAL TO THE TIP OF THE GREATER TROCHANTER AND DISSECTION CONTINUED TILL THE TIP OF THE GREATER TROCHANTER WAS PALPATED. A GUIDE PIN WAS PLACED DOWN THE FEMORAL CANAL AND PAST THE FRACTURE SITE. THIS WAS CHECKED ON FLUOROSCOPY AND FOUND TO BE IN GOOD POSITION. AN INITIAL REAMER WAS USED TO REAM THE FEMORAL CANAL. A 11 BY 220 MM ARTHREX PAWEL WAS INSERTED TILL THE CORRECT POSITION WAS IDENTIFIED ON XRAY. A GUIDE PIN WAS INSERTED THROUGH THE FEMORAL NECK AT 125 DEG ANGLE TILL IT REACHED THE TIP OF THE SUB CHONDRAL BONE SEEN ON XRAY. AFTER REAMING, LAG SCREW WAS INSERTED MEASURING 110 MM. XRAYS SHOWED IT TO BE IN GOOD POSITION. THE LAG SCREW WAS LOCKED PROXIMALLY WITH A LOCKING SCREW. NEXT A DISTAL LOCKING SCREW WAS PLACED ACROSS THE PAWEL AND WAS IN GOOD POSITION ON XRAY. THE TRACTION WAS RELEASED. THE WOUNDS WERE WASHED. THE DEEP FASCIA WAS REPAIRED WITH 0 VICRYL SUTURE, THE SUB CUTANEOUS LAYER WITH 2-0 VICRYL, AND THE SKIN WITH HYACINTH. THE WOUNDS WERE WASHED AND THEN STERILE DRESSING WAS APPLIED. Estimated Blood Loss 100 Urine Output 300 Complications No immediate complications Condition Stable Disposition PACU
[2025-02-05] MEDS: fentaNYL CITRATE INJ (*CRX) 100 MCG/2 ML VIAL 25 MCG IV PUSH ×4 (14:12→14:35)
--- NOTE | 2025-02-05 14:20 | W.PM.PROC2 ---
Procedure Note - Detailed Date of Procedure 02/05/25 Pre-op Diagnosis RIGHT OLECRANON FRACTURE Post-op Diagnosis Same Procedure Performed ORIF RIGHT OLECRANON FRACTURE Surgeon Ron Jama MD Anesthesia General Description of Procedure HE PATIENT WAS TAKEN TO THE OR AND INTUBATED. THE RIGHT UPPER EXTREMITY WAS PREPPED AND DRAPED. THE TOURNIQUET WAS INFLATED. THE SKIN HAD SIGNIFICANT AMOUNT OF ECCHYMOSIS. INCISION WAS MADE ON THE POSTERIOR ASPECT OF THE ELBOW DOWN TO FASCIA. THE FASCIA WAS INCISED AND DISSECTED DOWN TO BONE. THE FRACTURE WAS IDENTIFIED. THE FRACTURE WAS HIGHLY COMMINUTED. FIBROUS TISSUE WAS REMOVED FROM THE FRACTURE SITE. THERE WAS NO APPRECIABLE CALLUS FORMATION ABOUT THE FRACTURE SITE. THE HEMATOMA WAS DERIDED FROM THE FRACTURE SITE WELL. THE FRACTURE WAS REDUCED WELL POSSIBLE DUE TO LACK OF GOOD BONY ARCHITECTURE. REDUCTION TO NEAR ANATOMIC POSITION WITH FRACTURE CLAMPS AND K WIRES WAS ACHIEVED. AN ARTHREX OLECRANON PLATE WAS USED TO BRIDGE THE FRACTURE FRAGMENTS. SCREWS WERE PLACE USING STANDARD AO TECHNIQUE AND ALL HAD GOOD BITES. XRAYS WERE TAKEN USING FLUOROSCOPY AND IT WAS FOUND THAT THE FRACTURE FRAGMENTS AND HARDWARE WERE IN GOOD POSITION. THE WOUND WAS WASHED THEN THE TOURNIQUET DEFLATED AND THE BLEEDERS WERE CAUTERIZED. THE DEEP LAYERS OF FASCIA WERE REPAIRED WITH 0 VICRYL, THE SUB CUTANEOUS LAYER WITH 2-0 VICRYL AND THE SKIN WITH HYACINTH. THE WOUND WAS WASHED AGAIN. STERILE DRESSING WAS APPLIED THEN A PLASTER SPLINT WAS APPLIED. THE PATIENT WAS EXTUBATED AND SENT TO RECOVERY ROOM Estimated Blood Loss 30 Urine Output 300 Drains No Packing No Pathology None sent Complications No immediate complications Condition Stable Disposition PACU
[2025-02-05 14:48] LABS: Hematocrit 28.5 % (37.0-47.0); Hemoglobin 9.3 g/dL (12.0-15.0)
[2025-02-05 15:03] LABS: Anion Gap 4 mmol/L (4-12); Blood Urea Nitrogen 10 mg/dL (7-17); Calcium 7.1 mg/dL (8.4-10.2); Carbon Dioxide 22 mmol/L (22-30); Chloride 106 mmol/L (98-107); Estimated CRCL calculation 45 ml/min; Estimated Glomerular Filt Rate > 60; Glucose 125 mg/dL (65-110); Potassium 3.5 mmol/L (3.4-5.0); Sodium 132 mmol/L (137-145)
--- NOTE | 2025-02-05 17:17 | WPDANESCVCPN ---
Anes - Cent Venous Cath Note Consent: . The need to proceed with central venous catheter insertion as an important element of the patient's clinical management given emergent patient conditions, temporal constraints may have precluded informed consent. Time-Out: A pre-procedural Time-Out was completed immediately before starting the procedure and confirmed: Patient Identification, Site, Procedure, Patient Position and the Availability of Requisite Equipment. Procedure Note Patient position: supine Central venous catheter insertion site: left internal jugular CVC method of insertion: ultrasound-guided Hand hygiene/Aseptic technique: Hand hygiene procedures were performed. Aseptic technique was maintained throughout the procedure. Sterile barrier precautions: Maximal sterile barrier precautions, including use of a cap, mask, sterile gown, sterile gloves and a sterile full body drape. Site prep: chlorhexidine Skin anesthesia: placed under general anesthesia Qatari: 7 Lumen: 3 Length (cm): 15 cm Closure/Dressing: suture, biopatch and tegaderm Complications: None immediately noted/suspected. Chest X Ray: Ordered/review to follow.xray in SVC. Procedure comments: no complications.
[2025-02-05] MEDS: HYDROmorphone HCL INJ (*CRX) 1 MG/ML SYR 0.5 MG IV PUSH (17:38)
[2025-02-05] MEDS: DEXTROSE 5%/0.45% SOD CHL 1,000 ML 80 ML IV CONT (17:39)
--- NOTE | 2025-02-05 18:31 | PM.IMPN ---
Progress Note: A&P Assessment and Plan (1) Closed intertrochanteric fracture: Qualifiers: Encounter type: initial encounter Fracture alignment: displaced Laterality: right Qualified Code(s): S72.141A - Displaced intertrochanteric fracture of right femur, initial encounter for closed fracture Code(s): S72.143A - Displaced intertrochanteric fracture of unspecified femur, initial encounter for closed fracture Status: Acute (2) Closed olecranon fracture: Qualifiers: Encounter type: initial encounter Laterality: right Qualified Code(s): S52.021A - Displaced fracture of olecranon process without intraarticular extension of right ulna, initial encounter for closed fracture Code(s): S52.023A - Displaced fracture of olecranon process without intraarticular extension of unspecified ulna, initial encounter for closed fracture Status: Acute (3) Pneumonia: Qualifiers: Laterality: unspecified laterality Lung location: unspecified part of lung Pneumonia type: due to unspecified organism Qualified Code(s): J18.9 - Pneumonia, unspecified organism Code(s): J18.9 - Pneumonia, unspecified organism Status: Acute (4) Hypothyroidism: Qualifiers: Hypothyroidism type: postoperative Qualified Code(s): E89.0 - Postprocedural hypothyroidism Code(s): E03.9 - Hypothyroidism, unspecified Status: Acute (5) Fall from ground level: Code(s): W18.30XA - Fall on same level, unspecified, initial encounter Status: Acute Plan Patient ground level fall resulting in a right olecranon fracture and right intratrochanteric fracture. She has been placed on morphine as needed for pain. Vitale catheter has been placed due to immobility and is draining well. Orthopedic surgery has been consulted. Patient will be NPO except for meds with sips until evaluated by Orthopedic surgery to determine scheduling of operative procedure. Patient's x-ray is suggestive of pneumonia and she does have some leukocytosis. She has some conversational tachypnea time my evaluation but no hypoxia. Blood cultures were obtained and are pending. The patient has been started empiric antibiotic therapy with Rocephin and doxycycline. Will repeat CBC and electrolyte panel in a.m. Patient has history of thyroidectomy is naproxen which will be continued. Patient has been admitted as observation status. patient with comminuted displaced fracture olecranon and comminuted intertrochanteric fracture discussed with her surgeon it will bed a difficulty surgery for her elbow, today patient had ORIF both the elbow and the hip, just returned from surgery, will monitor, on 02/04 patient was in pain and appear restless but had been refusing her pain medications, I discussed with the patient and she has agreed to take the pain medications.will follow up and monitor. patient daughter was present and gave updates. Subjective Date/time seen: 02/05/25 18:31 Interval history: Fall with right arm and hip pain H&P-Narrative: 89-year-old female with a past medical history of mild dementia, hypothyroidism, and glaucoma who presented to the ER from [facility] via EMS after ground level fall resulting in right hip and right elbow pain. Patient reports that she was trying to get up from the toilet with her walker and fell. There was not a staff member with her when she fell. She denies hitting her head or having any loss of consciousness. She reported any right elbow pain and right thigh pain. She reports her pain is about a 6/10 in intensity after Knott and 1 dose morphine. She does not want any additional pain medication. She does have some conversational tachypnea noted during evaluation but denies any significant shortness of breath or recent cough. She is now a fevers or chills. She has not been having any chest pain. She does not have a history of CHF in has no localizing edema to suggest heart failure. She had a negative COVID, flu and RSV PCR in the ER. She denies any recent urinary symptoms. Review H&P, Patient stats pain worsen when she moves, patient will be seen by an orthopedic will have ORIF tomorrow, patient no other complaints, will monitor. patient with comminuted displaced fracture olecranon and comminuted intertrochanteric fracture discussed with her surgeon it will bed a difficulty surgery for her elbow, today patient had ORIF both the elbow and the hip, just returned from surgery, will monitor, on 02/04 patient was in pain and appear restless but had been refusing her pain medications, I discussed with the patient and she has agreed to take the pain medications.will follow up and monitor. patient daughter was present and gave updates. Review of Systems Review of Systems: 12 systems were reviewed with pertinent positives and negatives per HPI. Except as documented in the HPI, all other systems were reviewed and are negative. Exam Narrative: Elderly frail Patient is comfortable, NAD HEENT: eyes are clear and none icteric LUNGS:CTA HEART: RR S1S2 ABD: BS+, Soft and nontender Lower extremities: no edema MS: right arm in wound dressing SKIN: nonjaundiced Neuro: grossly intact. Objective Data Vital Signs Vital Signs: Vital Signs - 24 hr 02/04/25 20:00 02/04/25 20:00 02/04/25 22:00 Temperature 36.8 C Pulse Rate 119 H 120 H Respiratory Rate 22 H Blood Pressure 165/83 H Pulse Oximetry 96 100 Oxygen Delivery Nasal Cannula Oxygen Flow Rate 2 02/05/25 00:00 02/05/25 04:00 02/05/25 05:41 Temperature 36.6 C Pulse Rate 115 H 105 H 90 Respiratory Rate 20 Blood Pressure 128/63 Pulse Oximetry 95 Oxygen Delivery Oxygen Flow Rate 02/05/25 07:20 02/05/25 14:05 02/05/25 14:20 Temperature 37.3 C 36.9 C Pulse Rate 113 H 106 H 105 H Respiratory Rate 24 H 26 H 18 Blood Pressure 151/57 H 152/64 H 136/60 Pulse Oximetry 98 100 96 Oxygen Delivery Nasal Cannula Simple Face Mask Simple Face Mask Oxygen Flow Rate 2 6 6 02/05/25 14:35 02/05/25 14:50 02/05/25 15:05 Temperature Pulse Rate 106 H 106 H 113 H Respiratory Rate 22 H 20 22 H Blood Pressure 148/65 H 145/60 H 155/70 H Pulse Oximetry 95 95 99 Oxygen Delivery Simple Face Mask Simple Face Mask Simple Face Mask Oxygen Flow Rate 6 6 6 02/05/25 15:20 02/05/25 15:35 02/05/25 15:50 Temperature 36.9 C Pulse Rate 111 H 106 H 108 H Respiratory Rate 24 H 20 20 Blood Pressure 157/63 H 141/66 H 132/65 Pulse Oximetry 99 96 96 Oxygen Delivery Nasal Cannula Nasal Cannula Nasal Cannula Oxygen Flow Rate 3 3 3 02/05/25 16:07 02/05/25 16:22 02/05/25 16:52 Temperature 36.6 C 35.4 C L 35.8 C L Pulse Rate 104 H 104 H 84 Respiratory Rate 22 H 24 H 18 Blood Pressure 127/55 L 126/58 L 121/50 L Pulse Oximetry 99 98 96 Oxygen Delivery Oxygen Flow Rate 02/05/25 17:52 Temperature 35.9 C L Pulse Rate 107 H Respiratory Rate 24 H Blood Pressure 134/60 Pulse Oximetry 94 Oxygen Delivery Oxygen Flow Rate Intake/Output Intake/Output: Intake & Output 02/02/25 02/03/25 02/04/25 02/05/25 23:59 23:59 23:59 23:59 Intake Total 2300 2350 1650 Output Total 278 281 3795 Balance 1500 1550 -300 Meds/Results Medications: Active Medications Generic Name Dose Route Start Last Admin Trade Name Freq PRN Reason Stop Dose Admin Acetaminophen 500 mg 02/05/25 15:58 Acetaminophen 500 Mg Tablet PO Q6H PRN Pain Rated 1-3 Calcium Carbonate 500 mg 02/03/25 17:00 02/05/25 17:50 Calcium Carbonate (Oscal) 500 Mg Tablet PO Not Given DAILY@1700 [facility] Celecoxib 200 mg 02/06/25 08:00 Celecoxib 200 Mg Capsule PO DAILY@0800 [facility] Diazepam 5 mg 02/05/25 15:58 Diazepam (*Crx) 5 Mg Tablet PO Q8H PRN Muscle Spasm Donepezil HCl 10 mg 02/03/25 09:00 02/05/25 11:16 Donepezil Hcl 10 Mg Tablet PO Not Given DAILY [facility] Famotidine 20 mg 02/05/25 21:00 Famotidine 20 Mg Tablet PO Q12HR [facility] Folic Acid 0.4 mg 02/03/25 09:00 02/05/25 11:16 Folic Acid 0.4 Mg Tablet PO Not Given DAILY [facility] Heparin Sodium (Porcine) 5,000 units 02/05/25 21:00 Heparin Sodium 5,000 Units/Ml Vial SUB-Q Q12HR [facility] Hydromorphone HCl 1 mg 02/05/25 15:58 Hydromorphone Hcl Inj (*Crx) 1 Mg/Ml Syr IV PUSH Q2H PRN Breakthrough Pain Rated 7-10 or NPO Hydromorphone HCl 0.5 mg 02/05/25 15:58 02/05/25 17:38 Hydromorphone Hcl Inj (*Crx) 1 Mg/Ml Syr IV PUSH 0.5 mg Q2H PRN Administration Breakthrough Pain Rated 4-6 or NPO Hydroxyzine Pamoate 50 mg 02/05/25 15:58 Hydroxyzine Pamoate 25 Mg Capsule PO Q4H PRN Itching Cefazolin Sodium 2 gm/ Sodium 50 mls @ 100 mls/hr 02/05/25 20:00 Chloride IVPB 02/06/25 12:29 Q8H DELMI Sodium Chloride 1,000 mls @ 125 mls/hr 02/05/25 15:58 02/05/25 17:50 Normal Saline Iv IV CONT Not Given .Q8H DELMI Ibuprofen 800 mg in 200 mls @ 400 mls/hr 02/05/25 15:58 Caldolor 800 Mg/200 Ml IVPB Q6H PRN Breakthrough Pain Rated 1-3 or NPO Dextrose/Sodium Chloride 1,000 mls @ 80 mls/hr 02/05/25 15:58 02/05/25 17:39 Dextrose 5% Sodium Chloride 0.45% IV CONT 80 mls/hr .[id number] DELMI Administration Metronidazole 500 mg in 100 mls @ 100 mls/hr 02/05/25 23:00 Flagyl 500 Mg/Iso Soln 100 Ml IVPB Q8H DELMI Levothyroxine Sodium 56 mcg 02/05/25 06:30 02/05/25 05:44 Levothyroxine Sodium Inj 100 Mcg/5 Ml Vial IV PUSH 56 mcg DAILY@0630 [facility] Administration Multivitamins/Calcium 1 tablet 02/03/25 09:00 02/05/25 11:17 Therapeutic Multivitamins/Minerals Tab (*Bkc) PO Not Given DAILY DELMI Naloxone HCl 0.1 mg 02/05/25 15:58 Naloxone Hcl 0.4 Mg/Ml Vial IV PUSH Q2M PRN Opiate Reversal Methenamine 1 gm 02/03/25 09:00 02/05/25 11:16 Hippurate 1 Gram PO 03/05/25 08:59 Not Given Tablet Will Not Q12H DELMI Scan Ondansetron HCl 4 mg 02/05/25 15:58 Ondansetron Inj 4 Mg/2 Ml Vial IV PUSH Q4H PRN Nausea And Vomiting Oxycodone/Acetaminophen 1 tablet 02/05/25 15:58 Oxycodone/Acetaminophen (*Crx) 5-325 Mg Tablet PO Q4H PRN Pain Rated 4-6 Oxycodone/Acetaminophen 1 tab 02/05/25 15:58 Oxycodone/Acetaminophen (*Crx) 10-325 Mg Tablet PO Q6H PRN Pain Rated 7-10 Polyethylene Glycol 17 gm 02/06/25 09:00 Polyethylene Glycol 3350 17 Gm Powd.Pack PO QAM [facility] Senna/Docusate Sodium 2 tab 02/05/25 17:00 02/05/25 17:50 Senna/Docusate Sodium Tablet PO Not Given BID [facility] Simvastatin 20 mg 02/05/25 18:00 02/05/25 17:50 Simvastatin 20 Mg Tablet PO Not Given QPM [facility] Timolol Maleate 1 drop 02/03/25 09:00 02/05/25 16:11 Timolol Maleate 0.5% Op Soln 5 Ml Bottle EACH EYE Not Given DAILY [facility] Vitamin D 25 mcg 02/03/25 09:00 02/05/25 11:17 Cholecalciferol (Vitamin D3) 25 Mcg (1,000 Units) Tablet PO Not Given DAILY [facility] Vitamin E 1,000 unit 02/06/25 08:00 Vitamin E 1,000 Unit Capsule PO DAILY@0800 [facility] Radiology Results: ITS Impressions Head CT 02/03/25 08:34 IMPRESSION: 1. Stable extensive nonspecific cerebral white matter disease, which likely represents chronic small vessel ischemic disease. Cervical Spine CT 02/03/25 09:31 IMPRESSION: 1. No acute fracture. 2. Severe cervical spondylosis. Modified Barium Swallow 02/04/25 12:39 IMPRESSION: Oropharyngeal dysphagia with laryngeal penetration and aspiration with multiple consistencies Please correlate with speech pathologist findings and specific feeding recommendations. Intraoperative X-Ray 02/05/25 14:04 IMPRESSION: 1. Near-anatomic alignment post open reduction internal fixation of an intra-articular proximal right ulnar fracture. See procedure note for further detail. Chest X-Ray 02/05/25 15:00 Impression: CHF. Superimposed probable pneumonia. Left-sided line possibly within a left-sided SVC but exact location not clear. Correlation with CT is suggested Labs Labs: Laboratory Results - last 24 hr 02/03/25 02/04/25 02/05/25 13:37 21:46 07:10 WBC 17.6 H RBC 2.61 L Hgb 7.6 L Hct 23.9 L MCV 91.6 MCH 29.1 MCHC 31.8 L RDW 16.7 H Plt Count 153 MPV 11.2 H Sodium 129 L Potassium 3.2 L Chloride 103 Carbon Dioxide 22 Anion Gap 4 BUN 10 Creatinine 0.55 L Estim Creat Clear Calc 54 Estimated GFR > 60 Glucose 100 POC Capillary Glucose 135 H Calcium 7.4 L Magnesium 1.8 Blood Type O Positive Antibody Screen Negative Crossmatch See Detail 02/05/25 14:42 WBC RBC Hgb 9.3 L Hct 28.5 L MCV MCH MCHC RDW Plt Count MPV Sodium 132 L Potassium 3.5 Chloride 106 Carbon Dioxide 22 Anion Gap 4 BUN 10 Creatinine 0.66 L Estim Creat Clear Calc 45 Estimated GFR > 60 Glucose 125 H POC Capillary Glucose Calcium 7.1 L Magnesium Blood Type Antibody Screen Crossmatch Quality VTE Prophylaxis VTE prophylaxis: mechanical ordered (SCDs)
--- NOTE | 2025-02-05 18:41 | PCRCNOTE ---
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
[2025-02-05] MEDS: ceFAZolin 2 GM in SODIUM CHLORIDE 0.9% IV 50 ML 100 ML IVPB (21:17)
[2025-02-06] VITALS (11 sets, daily range): BP systolic 125–148; BP diastolic 51–69; PULSE 99–126; RESP 18; TEMP 36.3–37.1; O2SAT 91–98
[2025-02-06] MEDS: ceFAZolin 2 GM in SODIUM CHLORIDE 0.9% IV 50 ML 100 ML IVPB ×2 (04:20→12:06)
[2025-02-06 04:34] LABS: Hematocrit 24.7 % (37.0-47.0); Hemoglobin 8.1 g/dL (12.0-15.0); Immature Granulocyte Percent A 0.6 % (0-0.5); Lymphocytes Absolute Auto 1.43 K/mm3 (0.9-3.2); Mean Corpuscular HGB Conc 32.8 g/dl (32-36); Mean Corpuscular Hemoglobin 28.9 pg (26-34); Mean Corpuscular Volume 88.2 fl (80-100); Nucleated Red Blood Cells Absolute Auto 0.020 K/mm3 (0.0-0.012); Nucleated Red Blood Cells Perc 0.1 % (0.0-0.2); Platelet Count Result 151 k/mm3 (150-375); Red Blood Count 2.80 M/mm3 (4.2-5.4); White Blood Count 17.8 K/mm3 (4.5-10.0)
[2025-02-06 04:51] LABS: Anion Gap 1 mmol/L (4-12); Blood Urea Nitrogen 8 mg/dL (7-17); Calcium 7.2 mg/dL (8.4-10.2); Carbon Dioxide 23 mmol/L (22-30); Chloride 106 mmol/L (98-107); Estimated CRCL calculation 45 ml/min; Estimated Glomerular Filt Rate > 60; Glucose 135 mg/dL (65-110); Magnesium 1.9 mg/dL (1.6-2.3); Potassium 2.9 mmol/L (3.4-5.0); Sodium 130 mmol/L (137-145)
[2025-02-06] MEDS: DEXTROSE 5%/0.45% SOD CHL 1,000 ML 80 ML IV CONT (06:08)
[2025-02-06] MEDS: metroNIDAZOLE 500 MG/ISO 100ML 500 MG/100 ML BAG 100 MG IVPB ×3 (06:09→22:36)
[2025-02-06] MEDS: LEVOTHYROXINE SODIUM INJ 100 MCG/5 ML VIAL 56 MCG IV PUSH (06:09)
[2025-02-06] MEDS: THERAPEUTIC MULTIVITAMINS/MINERALS TAB (*BKC) 1 TABLET PO (09:06)
[2025-02-06] MEDS: DONEPEZIL HCL 10 MG TABLET PO (09:07)
[2025-02-06] MEDS: CELECOXIB 200 MG CAPSULE PO (09:07)
[2025-02-06] MEDS: FOLIC ACID 0.4 MG TABLET PO (09:07)
[2025-02-06] MEDS: FAMOTIDINE 20 MG TABLET PO ×2 (09:07→21:14)
[2025-02-06] MEDS: SENNA/DOCUSATE SODIUM TABLET 2 TAB PO (09:07)
[2025-02-06] MEDS: VITAMIN E 1,000 UNIT CAPSULE 1000 UNIT PO (09:07)
[2025-02-06] MEDS: POTASSIUM CHLORIDE 20 MEQ PACKET (FOR LIQUID) 40 MEQ PO (09:20)
[2025-02-06] MEDS: TIMOLOL MALEATE 0.5% OP SOLN 5 ML BOTTLE 1 DROP EACH EYE (09:21)
[2025-02-06] MEDS: [UNRECOGNIZED DRUG - REMARK] 1 EACH PO ×2 (09:35→21:15)
[2025-02-06] MEDS: POTASSIUM CHLORIDE INJ 40 MEQ in SODIUM CHLORIDE 0.9% IV 500 ML 130 MEQ IVPB (09:38)
[2025-02-06] MEDS: HYDROmorphone HCL INJ (*CRX) 1 MG/ML SYR 0.5 MG IV PUSH (13:32)
--- NOTE | 2025-02-06 14:12 | P.PNOP_ITS ---
Progress Note: A&P Assessment and Plan (1) Closed intertrochanteric fracture: Qualifiers: Encounter type: initial encounter Fracture alignment: displaced Laterality: right Qualified Code(s): S72.141A - Displaced intertrochanteric fracture of right femur, initial encounter for closed fracture Code(s): S72.143A - Displaced intertrochanteric fracture of unspecified femur, initial encounter for closed fracture Status: Acute Assessment and Plan: POD 1 DOING WELL WITH SLOW PROGRESS WITH PT. SHE WILL CONTINUE HER CURRENT REGIMEN. SHE WILL NEED A SNF PLACEMNT. SHE WILL BE DISCHARGED TO SNF PER MEDICINE SERVICE (2) Closed olecranon fracture: Qualifiers: Encounter type: initial encounter Laterality: right Qualified Code(s): S52.021A - Displaced fracture of olecranon process without intraarticular extension of right ulna, initial encounter for closed fracture Code(s): S52.023A - Displaced fracture of olecranon process without intraarticular extension of unspecified ulna, initial encounter for closed fracture Status: Acute Subjective Subjective Date/Time Seen: 02/06/25 14:12 Interval history: POD 1 DOING WELL. NO CALF PAIN. SLOW PROGRESS WITH PT Exam Extrem: Other: VSS AFEBRILE DRESSINGS DRY NV INTACT UPPER AND LOWER EXTREMITIES, CALF THIGH SOFT NON TENDER, NEG HOMANS Objective Data Vital Signs Vital Signs: Vital Signs - 24 hr 02/05/25 14:20 02/05/25 14:35 02/05/25 14:50 Temperature Pulse Rate 105 H 106 H 106 H Respiratory Rate 18 22 H 20 Blood Pressure 136/60 148/65 H 145/60 H Pulse Oximetry 96 95 95 Oxygen Delivery Simple Face Mask Simple Face Mask Simple Face Mask Oxygen Flow Rate 6 6 6 Fraction of Inspired Oxygen 02/05/25 15:05 02/05/25 15:20 02/05/25 15:35 Temperature 36.9 C Pulse Rate 113 H 111 H 106 H Respiratory Rate 22 H 24 H 20 Blood Pressure 155/70 H 157/63 H 141/66 H Pulse Oximetry 99 99 96 Oxygen Delivery Simple Face Mask Nasal Cannula Nasal Cannula Oxygen Flow Rate 6 3 3 Fraction of Inspired Oxygen 02/05/25 15:50 02/05/25 16:07 02/05/25 16:22 Temperature 36.6 C 35.4 C L Pulse Rate 108 H 104 H 104 H Respiratory Rate 20 22 H 24 H Blood Pressure 132/65 127/55 L 126/58 L Pulse Oximetry 96 99 98 Oxygen Delivery Nasal Cannula Oxygen Flow Rate 3 Fraction of Inspired Oxygen 02/05/25 16:52 02/05/25 17:52 02/05/25 20:00 Temperature 35.8 C L 35.9 C L Pulse Rate 84 107 H 107 H Respiratory Rate 18 24 H Blood Pressure 121/50 L 134/60 Pulse Oximetry 96 94 Oxygen Delivery Oxygen Flow Rate Fraction of Inspired Oxygen 02/05/25 20:55 02/05/25 21:40 02/05/25 23:52 Temperature 36.4 C L 36.7 C Pulse Rate 111 H 113 H 115 H Respiratory Rate 20 18 20 Blood Pressure 132/53 L 148/55 H Pulse Oximetry 94 98 98 Oxygen Delivery Nasal Cannula Oxygen Flow Rate 2 Fraction of Inspired Oxygen 28 02/06/25 00:00 02/06/25 04:00 02/06/25 04:46 Temperature 37.1 C Pulse Rate 109 H 125 H 118 H Respiratory Rate 18 Blood Pressure 146/60 H Pulse Oximetry 91 Oxygen Delivery Oxygen Flow Rate Fraction of Inspired Oxygen 02/06/25 08:00 02/06/25 08:00 02/06/25 09:43 Temperature 36.9 C Pulse Rate 119 H 112 H Respiratory Rate 18 Blood Pressure 136/57 L Pulse Oximetry 91 94 Oxygen Delivery Room Air Oxygen Flow Rate Fraction of Inspired Oxygen 02/06/25 12:00 Temperature Pulse Rate 112 H Respiratory Rate Blood Pressure Pulse Oximetry Oxygen Delivery Oxygen Flow Rate Fraction of Inspired Oxygen Intake/Output Intake/Output: Intake & Output 02/03/25 02/04/25 02/05/25 02/06/25 23:59 23:59 23:59 23:59 Intake Total 2300 2350 1650 1198.7 Output Total 664 567 0963 375 Balance 1500 1550 -300 823.7 Meds/Results Medications: Active Medications Generic Name Dose Route Start Last Admin Trade Name Freq PRN Reason Stop Dose Admin Acetaminophen 500 mg 02/05/25 15:58 Acetaminophen 500 Mg Tablet PO Q6H PRN Pain Rated 1-3 Calcium Carbonate 500 mg 02/03/25 17:00 02/05/25 17:50 Calcium Carbonate (Oscal) 500 Mg Tablet PO Not Given DAILY@1700 DELMI Celecoxib 200 mg 02/06/25 08:00 02/06/25 09:07 Celecoxib 200 Mg Capsule PO 200 mg DAILY@0800 DELMI Administration Diazepam 5 mg 02/05/25 15:58 Diazepam (*Crx) 5 Mg Tablet PO Q8H PRN Muscle Spasm Donepezil HCl 10 mg 02/03/25 09:00 02/06/25 09:07 Donepezil Hcl 10 Mg Tablet PO 10 mg DAILY DELMI Administration Famotidine 20 mg 02/05/25 21:00 02/06/25 09:07 Famotidine 20 Mg Tablet PO 20 mg Q12HR DELMI Administration Folic Acid 0.4 mg 02/03/25 09:00 02/06/25 09:07 Folic Acid 0.4 Mg Tablet PO 0.4 mg DAILY DELMI Administration Heparin Sodium (Porcine) 5,000 units 02/05/25 21:00 02/06/25 09:08 Heparin Sodium 5,000 Units/Ml Vial SUB-Q 5,000 units Q12HR DELMI Administration Hydromorphone HCl 1 mg 02/05/25 15:58 Hydromorphone Hcl Inj (*Crx) 1 Mg/Ml Syr IV PUSH Q2H PRN Breakthrough Pain Rated 7-10 or NPO Hydromorphone HCl 0.5 mg 02/05/25 15:58 02/06/25 13:32 Hydromorphone Hcl Inj (*Crx) 1 Mg/Ml Syr IV PUSH 0.5 mg Q2H PRN Administration Breakthrough Pain Rated 4-6 or NPO Hydroxyzine Pamoate 50 mg 02/05/25 15:58 Hydroxyzine Pamoate 25 Mg Capsule PO Q4H PRN Itching Ibuprofen 800 mg in 200 mls @ 400 mls/hr 02/05/25 15:58 Caldolor 800 Mg/200 Ml IVPB Q6H PRN Breakthrough Pain Rated 1-3 or NPO Dextrose/Sodium Chloride 1,000 mls @ 80 mls/hr 02/05/25 15:58 02/06/25 06:08 Dextrose 5% Sodium Chloride 0.45% IV CONT 80 mls/hr .[id number] DELMI Administration Metronidazole 500 mg in 100 mls @ 100 mls/hr 02/05/25 23:00 02/06/25 06:09 Flagyl 500 Mg/Iso Soln 100 Ml IVPB 100 mls/hr Q8H DELMI Administration Levothyroxine Sodium 56 mcg 02/05/25 06:30 02/06/25 06:09 Levothyroxine Sodium Inj 100 Mcg/5 Ml Vial IV PUSH 56 mcg DAILY@0630 [facility] Administration Multivitamins/Calcium 1 tablet 02/03/25 09:00 02/06/25 09:06 Therapeutic Multivitamins/Minerals Tab (*Bkc) PO 1 tablet DAILY DELMI Administration Naloxone HCl 0.1 mg 02/05/25 15:58 Naloxone Hcl 0.4 Mg/Ml Vial IV PUSH Q2M PRN Opiate Reversal Methenamine 1 gm 02/03/25 09:00 02/06/25 09:35 Hippurate 1 Gram PO 03/05/25 08:59 1 gm Tablet Will Not Q12H DELMI Administration Scan Ondansetron HCl 4 mg 02/05/25 15:58 Ondansetron Inj 4 Mg/2 Ml Vial IV PUSH Q4H PRN Nausea And Vomiting Oxycodone/Acetaminophen 1 tablet 02/05/25 15:58 Oxycodone/Acetaminophen (*Crx) 5-325 Mg Tablet PO Q4H PRN Pain Rated 4-6 Oxycodone/Acetaminophen 1 tab 02/05/25 15:58 Oxycodone/Acetaminophen (*Crx) 10-325 Mg Tablet PO Q6H PRN Pain Rated 7-10 Senna/Docusate Sodium 2 tab 02/05/25 17:00 02/06/25 09:07 Senna/Docusate Sodium Tablet PO 2 tab BID DELMI Administration Simvastatin 20 mg 02/05/25 18:00 02/05/25 17:50 Simvastatin 20 Mg Tablet PO Not Given QPM [facility] Timolol Maleate 1 drop 02/03/25 09:00 02/06/25 09:21 Timolol Maleate 0.5% Op Soln 5 Ml Bottle EACH EYE 1 drop DAILY [facility] Administration Vitamin D 25 mcg 02/03/25 09:00 02/06/25 09:24 Cholecalciferol (Vitamin D3) 25 Mcg (1,000 Units) Tablet PO Not Given DAILY [facility] Vitamin E 1,000 unit 02/06/25 08:00 02/06/25 09:07 Vitamin E 1,000 Unit Capsule PO 1,000 unit DAILY@0800 [facility] Administration Radiology Results: ITS Impressions Head CT 02/03/25 08:34 IMPRESSION: 1. Stable extensive nonspecific cerebral white matter disease, which likely re presents chronic small vessel ischemic disease. Cervical Spine CT 02/03/25 09:31 IMPRESSION: 1. No acute fracture. 2. Severe cervical spondylosis. Modified Barium Swallow 02/04/25 12:39 IMPRESSION: Oropharyngeal dysphagia with laryngeal penetration and aspiration with multiple consistencies Please correlate with speech pathologist findings and specific feeding recommendations. Intraoperative X-Ray 02/05/25 14:04 IMPRESSION: 1. Near-anatomic alignment post open reduction internal fixation of an intra- articular proximal right ulnar fracture. See procedure note for further detail. Chest X-Ray 02/05/25 15:00 Impression: CHF. Superimposed probable pneumonia. Left-sided line possibly within a left- sided SVC but exact location not clear. Correlation with CT is suggested Labs Labs: Laboratory Results - last 24 hr 02/03/25 02/05/25 02/06/25 13:37 14:42 04:27 WBC 17.8 H RBC 2.80 L Hgb 9.3 L 8.1 L Hct 28.5 L 24.7 L MCV 88.2 MCH 28.9 MCHC 32.8 RDW 16.4 H Plt Count 151 MPV 10.2 Immature Gran % (Auto) 0.6 H Neut % (Auto) 78.6 H Lymph % (Auto) 8.0 L [place] % (Auto) 12.4 H Eos % (Auto) 0.2 Baso % (Auto) 0.2 Lymph # (Auto) 1.43 [place] # (Auto) 2.2 H Eos # (Auto) 0.0 Baso # (Auto) 0.0 Abs Immat Gran (auto) 0.10 H Absolute Neuts (auto) 14.0 H Absolute Nucleated RBC 0.020 H Nucleated RBC % 0.1 Sodium 132 L 130 L Potassium 3.5 2.9 L Chloride 106 106 Carbon Dioxide 22 23 Anion Gap 4 1 L BUN 10 8 Creatinine 0.66 L 0.67 L Estim Creat Clear Calc 45 45 Estimated GFR > 60 > 60 Glucose 125 H 135 H Calcium 7.1 L 7.2 L Magnesium 1.9 Crossmatch See Detail
[2025-02-06] MEDS: CALCIUM CARBONATE (OSCAL) 500 MG TABLET PO (17:29)
[2025-02-06] MEDS: SIMVASTATIN 20 MG TABLET PO (17:29)
--- NOTE | 2025-02-06 18:09 | PM.IMPN ---
Progress Note: A&P Assessment and Plan (1) Closed intertrochanteric fracture: Qualifiers: Encounter type: initial encounter Fracture alignment: displaced Laterality: right Qualified Code(s): S72.141A - Displaced intertrochanteric fracture of right femur, initial encounter for closed fracture Code(s): S72.143A - Displaced intertrochanteric fracture of unspecified femur, initial encounter for closed fracture Status: Acute (2) Closed olecranon fracture: Qualifiers: Encounter type: initial encounter Laterality: right Qualified Code(s): S52.021A - Displaced fracture of olecranon process without intraarticular extension of right ulna, initial encounter for closed fracture Code(s): S52.023A - Displaced fracture of olecranon process without intraarticular extension of unspecified ulna, initial encounter for closed fracture Status: Acute (3) Pneumonia: Qualifiers: Laterality: unspecified laterality Lung location: unspecified part of lung Pneumonia type: due to unspecified organism Qualified Code(s): J18.9 - Pneumonia, unspecified organism Code(s): J18.9 - Pneumonia, unspecified organism Status: Acute (4) Hypothyroidism: Qualifiers: Hypothyroidism type: postoperative Qualified Code(s): E89.0 - Postprocedural hypothyroidism Code(s): E03.9 - Hypothyroidism, unspecified Status: Acute (5) Fall from ground level: Code(s): W18.30XA - Fall on same level, unspecified, initial encounter Status: Acute Plan patient with comminuted displaced fracture olecranon and comminuted intertrochanteric fracture discussed with her surgeon it will bed a difficulty surgery for her elbow, today patient had ORIF both the elbow and the hip, just returned from surgery, will monitor, on 02/04 patient was in pain and appear restless but had been refusing her pain medications, I discussed with the patient and she has agreed to take the pain medications.will follow up and monitor. patient daughter was present and gave updates. S/P ORIF of both the elbow and his POD #1 patient stats pain is better, does not have any complaints, her brother who is an orthopedic surgeon is present in the room, gave update, patient will be seen by her surgeon, and further recommendation to follow. will monitor. Patient ground level fall resulting in a right olecranon fracture and right intratrochanteric fracture. She has been placed on morphine as needed for pain. Vitale catheter has been placed due to immobility and is draining well. Orthopedic surgery has been consulted. Patient will be NPO except for meds with sips until evaluated by Orthopedic surgery to determine scheduling of operative procedure. Patient's x-ray is suggestive of pneumonia and she does have some leukocytosis. She has some conversational tachypnea time my evaluation but no hypoxia. Blood cultures were obtained and are pending. The patient has been started empiric antibiotic therapy with Rocephin and doxycycline. Will repeat CBC and electrolyte panel in a.m. Patient has history of thyroidectomy is naproxen which will be continued. Patient has been admitted as observation status. patient with comminuted displaced fracture olecranon and comminuted intertrochanteric fracture discussed with her surgeon it will bed a difficulty surgery for her elbow, today patient had ORIF both the elbow and the hip, just returned from surgery, will monitor, on 02/04 patient was in pain and appear restless but had been refusing her pain medications, I discussed with the patient and she has agreed to take the pain medications.will follow up and monitor. patient daughter was present and gave updates. Subjective Date/time seen: 02/06/25 18:09 Interval history: Fall with right arm and hip pain H&P-Narrative: 89-year-old female with a past medical history of mild dementia, hypothyroidism, and glaucoma who presented to the ER from [facility] via EMS after ground level fall resulting in right hip and right elbow pain. Patient reports that she was trying to get up from the toilet with her walker and fell. There was not a staff member with her when she fell. She denies hitting her head or having any loss of consciousness. She reported any right elbow pain and right thigh pain. She reports her pain is about a 6/10 in intensity after [place] and 1 dose morphine. She does not want any additional pain medication. She does have some conversational tachypnea noted during evaluation but denies any significant shortness of breath or recent cough. She is now a fevers or chills. She has not been having any chest pain. She does not have a history of CHF in has no localizing edema to suggest heart failure. She had a negative COVID, flu and RSV PCR in the ER. She denies any recent urinary symptoms. Review H&P, Patient stats pain worsen when she moves, patient will be seen by an orthopedic will have ORIF tomorrow, patient no other complaints, will monitor. patient with comminuted displaced fracture olecranon and comminuted intertrochanteric fracture discussed with her surgeon it will bed a difficulty surgery for her elbow, today patient had ORIF both the elbow and the hip, just returned from surgery, will monitor, on 02/04 patient was in pain and appear restless but had been refusing her pain medications, I discussed with the patient and she has agreed to take the pain medications.will follow up and monitor. patient daughter was present and gave updates. S/P ORIF of both the elbow and his POD #1 patient stats pain is better, does not have any complaints, her brother who is an orthopedic surgeon is present in the room, gave update, patient will be seen by her surgeon, and further recommendation to follow. will monitor. Review of Systems Review of Systems: 12 systems were reviewed with pertinent positives and negatives per HPI. Except as documented in the HPI, all other systems were reviewed and are negative. Exam Narrative: Elderly frail Patient is comfortable, NAD HEENT: eyes are clear and none icteric LUNGS:CTA HEART: RR S1S2 ABD: BS+, Soft and nontender Lower extremities: no edema MS: right arm in wound dressing SKIN: nonjaundiced Neuro: grossly intact. Objective Data Vital Signs Vital Signs: Vital Signs - 24 hr 02/05/25 20:00 02/05/25 20:55 02/05/25 21:40 Temperature 36.4 C L Pulse Rate 107 H 111 H 113 H Respiratory Rate 20 18 Blood Pressure 132/53 L Pulse Oximetry 94 98 Oxygen Delivery Nasal Cannula Oxygen Flow Rate 2 Fraction of Inspired Oxygen 28 02/05/25 23:52 02/06/25 00:00 02/06/25 04:00 Temperature 36.7 C Pulse Rate 115 H 109 H 125 H Respiratory Rate 20 Blood Pressure 148/55 H Pulse Oximetry 98 Oxygen Delivery Oxygen Flow Rate Fraction of Inspired Oxygen 02/06/25 04:46 02/06/25 08:00 02/06/25 08:00 Temperature 37.1 C Pulse Rate 118 H 119 H Respiratory Rate 18 Blood Pressure 146/60 H Pulse Oximetry 91 91 Oxygen Delivery Room Air Oxygen Flow Rate Fraction of Inspired Oxygen 02/06/25 09:43 02/06/25 12:00 02/06/25 13:14 Temperature 36.9 C Pulse Rate 112 H 112 H Respiratory Rate 18 Blood Pressure 136/57 L Pulse Oximetry 94 Oxygen Delivery Nasal Cannula Oxygen Flow Rate 2 Fraction of Inspired Oxygen 02/06/25 13:35 02/06/25 13:43 02/06/25 16:00 Temperature 36.4 C L Pulse Rate 110 H 99 Respiratory Rate 18 Blood Pressure 140/69 Pulse Oximetry 98 Oxygen Delivery Room Air Oxygen Flow Rate Fraction of Inspired Oxygen Intake/Output Intake/Output: Intake & Output 02/03/25 02/04/25 02/05/25 02/06/25 23:59 23:59 23:59 23:59 Intake Total 2300 2350 1650 1298.7 Output Total 463 005 4746 375 Balance 1500 1550 -300 923.7 Meds/Results Medications: Active Medications Generic Name Dose Route Start Last Admin Trade Name Freq PRN Reason Stop Dose Admin Acetaminophen 500 mg 02/05/25 15:58 Acetaminophen 500 Mg Tablet PO Q6H PRN Pain Rated 1-3 Calcium Carbonate 500 mg 02/03/25 17:00 02/06/25 17:29 Calcium Carbonate (Oscal) 500 Mg Tablet PO 500 mg DAILY@1700 DELMI Administration Celecoxib 200 mg 02/06/25 08:00 02/06/25 09:07 Celecoxib 200 Mg Capsule PO 200 mg DAILY@0800 DELMI Administration Diazepam 5 mg 02/05/25 15:58 Diazepam (*Crx) 5 Mg Tablet PO Q8H PRN Muscle Spasm Donepezil HCl 10 mg 02/03/25 09:00 02/06/25 09:07 Donepezil Hcl 10 Mg Tablet PO 10 mg DAILY DELMI Administration Famotidine 20 mg 02/05/25 21:00 02/06/25 09:07 Famotidine 20 Mg Tablet PO 20 mg Q12HR DELMI Administration Folic Acid 0.4 mg 02/03/25 09:00 02/06/25 09:07 Folic Acid 0.4 Mg Tablet PO 0.4 mg DAILY DELMI Administration Heparin Sodium (Porcine) 5,000 units 02/05/25 21:00 02/06/25 09:08 Heparin Sodium 5,000 Units/Ml Vial SUB-Q 5,000 units Q12HR DELMI Administration Hydromorphone HCl 1 mg 02/05/25 15:58 Hydromorphone Hcl Inj (*Crx) 1 Mg/Ml Syr IV PUSH Q2H PRN Breakthrough Pain Rated 7-10 or NPO Hydromorphone HCl 0.5 mg 02/05/25 15:58 02/06/25 13:32 Hydromorphone Hcl Inj (*Crx) 1 Mg/Ml Syr IV PUSH 0.5 mg Q2H PRN Administration Breakthrough Pain Rated 4-6 or NPO Hydroxyzine Pamoate 50 mg 02/05/25 15:58 Hydroxyzine Pamoate 25 Mg Capsule PO Q4H PRN Itching Ibuprofen 800 mg in 200 mls @ 400 mls/hr 02/05/25 15:58 Caldolor 800 Mg/200 Ml IVPB Q6H PRN Breakthrough Pain Rated 1-3 or NPO Dextrose/Sodium Chloride 1,000 mls @ 80 mls/hr 02/05/25 15:58 02/06/25 06:08 Dextrose 5% Sodium Chloride 0.45% IV CONT 80 mls/hr .[id number] DELMI Administration Metronidazole 500 mg in 100 mls @ 100 mls/hr 02/05/25 23:00 02/06/25 14:19 Flagyl 500 Mg/Iso Soln 100 Ml IVPB 100 mls/hr Q8H DELMI Administration Levothyroxine Sodium 56 mcg 02/05/25 06:30 02/06/25 06:09 Levothyroxine Sodium Inj 100 Mcg/5 Ml Vial IV PUSH 56 mcg DAILY@0630 DELMI Administration Multivitamins/Calcium 1 tablet 02/03/25 09:00 02/06/25 09:06 Therapeutic Multivitamins/Minerals Tab (*Bkc) PO 1 tablet DAILY DELMI Administration Naloxone HCl 0.1 mg 02/05/25 15:58 Naloxone Hcl 0.4 Mg/Ml Vial IV PUSH Q2M PRN Opiate Reversal Methenamine 1 gm 02/03/25 09:00 02/06/25 09:35 Hippurate 1 Gram PO 03/05/25 08:59 1 gm Tablet Will Not Q12H DELMI Administration Scan Ondansetron HCl 4 mg 02/05/25 15:58 Ondansetron Inj 4 Mg/2 Ml Vial IV PUSH Q4H PRN Nausea And Vomiting Oxycodone/Acetaminophen 1 tablet 02/05/25 15:58 Oxycodone/Acetaminophen (*Crx) 5-325 Mg Tablet PO Q4H PRN Pain Rated 4-6 Oxycodone/Acetaminophen 1 tab 02/05/25 15:58 Oxycodone/Acetaminophen (*Crx) 10-325 Mg Tablet PO Q6H PRN Pain Rated 7-10 Senna/Docusate Sodium 2 tab 02/05/25 17:00 02/06/25 17:29 Senna/Docusate Sodium Tablet PO Not Given BID DELMI Simvastatin 20 mg 02/05/25 18:00 02/06/25 17:29 Simvastatin 20 Mg Tablet PO 20 mg QPM DELMI Administration Timolol Maleate 1 drop 02/03/25 09:00 02/06/25 09:21 Timolol Maleate 0.5% Op Soln 5 Ml Bottle EACH EYE 1 drop DAILY DELMI Administration Vitamin D 25 mcg 02/03/25 09:00 02/06/25 09:24 Cholecalciferol (Vitamin D3) 25 Mcg (1,000 Units) Tablet PO Not Given DAILY [facility] Vitamin E 1,000 unit 02/06/25 08:00 02/06/25 09:07 Vitamin E 1,000 Unit Capsule PO 1,000 unit DAILY@0800 DELMI Administration Radiology Results: ITS Impressions Head CT 02/03/25 08:34 IMPRESSION: 1. Stable extensive nonspecific cerebral white matter disease, which likely represents chronic small vessel ischemic disease. Cervical Spine CT 02/03/25 09:31 IMPRESSION: 1. No acute fracture. 2. Severe cervical spondylosis. Modified Barium Swallow 02/04/25 12:39 IMPRESSION: Oropharyngeal dysphagia with laryngeal penetration and aspiration with multiple consistencies Please correlate with speech pathologist findings and specific feeding recommendations. Intraoperative X-Ray 02/05/25 14:04 IMPRESSION: 1. Near-anatomic alignment post open reduction internal fixation of an intra-articular proximal right ulnar fracture. See procedure note for further detail. Chest X-Ray 02/05/25 15:00 Impression: CHF. Superimposed probable pneumonia. Left-sided line possibly within a left-sided SVC but exact location not clear. Correlation with CT is suggested Labs Labs: Laboratory Results - last 24 hr 02/03/25 02/06/25 13:37 04:27 WBC 17.8 H RBC 2.80 L Hgb 8.1 L Hct 24.7 L MCV 88.2 MCH 28.9 MCHC 32.8 RDW 16.4 H Plt Count 151 MPV 10.2 Immature Gran % (Auto) 0.6 H Neut % (Auto) 78.6 H Lymph % (Auto) 8.0 L [place] % (Auto) 12.4 H Eos % (Auto) 0.2 Baso % (Auto) 0.2 Lymph # (Auto) 1.43 [place] # (Auto) 2.2 H Eos # (Auto) 0.0 Baso # (Auto) 0.0 Abs Immat Gran (auto) 0.10 H Absolute Neuts (auto) 14.0 H Absolute Nucleated RBC 0.020 H Nucleated RBC % 0.1 Sodium 130 L Potassium 2.9 L Chloride 106 Carbon Dioxide 23 Anion Gap 1 L BUN 8 Creatinine 0.67 L Estim Creat Clear Calc 45 Estimated GFR > 60 Glucose 135 H Calcium 7.2 L Magnesium 1.9 Crossmatch See Detail Quality VTE Prophylaxis VTE prophylaxis: mechanical ordered (SCDs)
[2025-02-07] VITALS (8 sets, daily range): BP systolic 117–135; BP diastolic 52–61; PULSE 103–123; RESP 16–18; TEMP 36.2–36.9; O2SAT 93–98; BMI 11.0
[2025-02-07] MEDS: HYDROmorphone HCL INJ (*CRX) 1 MG/ML SYR IV PUSH (01:43)
[2025-02-07] MEDS: DEXTROSE 5%/0.45% SOD CHL 1,000 ML 80 ML IV CONT ×2 (01:46→23:36)
--- NOTE | 2025-02-07 05:22 | PC.NURSE ---
pt noted to pull novak cath out this shift balloon still intact no bleeding noted at this time. pt also pulled guaze wrap from surgery site of right arm no drainage noted arm rewrapped without difficulty. pt has been confused most of shift. pt has an IJ triple lumen and no blood return. called placed to hospitalist Baldev who gave order for cath flow to get lab draw.
[2025-02-07] MEDS: LEVOTHYROXINE SODIUM INJ 100 MCG/5 ML VIAL 56 MCG IV PUSH (05:49)
[2025-02-07] MEDS: metroNIDAZOLE 500 MG/ISO 100ML 500 MG/100 ML BAG 100 MG IVPB ×3 (05:51→22:32)
[2025-02-07] MEDS: THERAPEUTIC MULTIVITAMINS/MINERALS TAB (*BKC) 1 TABLET PO (08:11)
[2025-02-07] MEDS: FAMOTIDINE 20 MG TABLET PO (08:11)
[2025-02-07] MEDS: SENNA/DOCUSATE SODIUM TABLET 2 TAB PO (08:11)
[2025-02-07] MEDS: FOLIC ACID 0.4 MG TABLET PO (08:11)
[2025-02-07] MEDS: CHOLECALCIFEROL (VITAMIN D3) 25 MCG (1,000 UNITS) TABLET PO (08:11)
[2025-02-07] MEDS: DONEPEZIL HCL 10 MG TABLET PO (08:11)
[2025-02-07] MEDS: CELECOXIB 200 MG CAPSULE PO (08:11)
[2025-02-07] MEDS: TIMOLOL MALEATE 0.5% OP SOLN 5 ML BOTTLE 1 DROP EACH EYE (08:16)
[2025-02-07] MEDS: ALPRAZolam (*CRX) 0.5 MG TABLET PO (08:16)
[2025-02-07] MEDS: [UNRECOGNIZED DRUG - REMARK] 1 EACH PO (08:20)
[2025-02-07 08:29] LABS: Alveolar/Arterial O2 Gradient 57.5 mmHg; Fractional Inspired Oxygen 21 %; HCO3 ABG 21.6 mEq/l (22.0-26.0); Oxygen Content ABG 11.0 %vol (16.0-22.0); Oxygen Saturation ABG 92.1 % (95.0-100.0); PCO2 ABG 29.4 mmHg (35.0-45.0); PO2 ABG 57.0 mmHg (80.0-100.0); PO2 FiO2 Ratio Arterial Blood 2.71 %
[2025-02-07 08:41] LABS: Modified Allen's Test Pass; Site Drawn LEFT RADIAL
[2025-02-07 08:46] LABS: Hematocrit 24.2 % (37.0-47.0); Hemoglobin 7.9 g/dL (12.0-15.0); Mean Corpuscular HGB Conc 32.6 g/dl (32-36); Mean Corpuscular Hemoglobin 29.2 pg (26-34); Mean Corpuscular Volume 89.3 fl (80-100); Platelet Count Result 207 k/mm3 (150-375); Red Blood Count 2.71 M/mm3 (4.2-5.4); White Blood Count 17.2 K/mm3 (4.5-10.0)
[2025-02-07 09:06] LABS: Anion Gap 4 mmol/L (4-12); Blood Urea Nitrogen 9 mg/dL (7-17); Calcium 7.7 mg/dL (8.4-10.2); Carbon Dioxide 22 mmol/L (22-30); Chloride 108 mmol/L (98-107); Estimated CRCL calculation 55 ml/min; Estimated Glomerular Filt Rate > 60; Glucose 116 mg/dL (65-110); Magnesium 2.0 mg/dL (1.6-2.3); Potassium 3.4 mmol/L (3.4-5.0); Sodium 134 mmol/L (137-145)
--- NOTE | 2025-02-07 10:41 | PM.PNORT ---
Progress Note: A&P Assessment and Plan (1) Closed olecranon fracture: Qualifiers: Encounter type: initial encounter Laterality: right Qualified Code(s): S52.021A - Displaced fracture of olecranon process without intraarticular extension of right ulna, initial encounter for closed fracture Code(s): S52.023A - Displaced fracture of olecranon process without intraarticular extension of unspecified ulna, initial encounter for closed fracture Status: Acute Assessment and Plan: POD #2: ORIF Right Elbow Continue PT/OT. NWB RUE. Forearm walker. Continue pain control. Ice Elbow. Protect skin. DVT prophylaxis with Heparin. Keep splint c/d/i. Dispo: SNF pending progress with PT/OT and medical stability (2) Closed intertrochanteric fracture: Qualifiers: Encounter type: initial encounter Fracture alignment: displaced Laterality: right Qualified Code(s): S72.141A - Displaced intertrochanteric fracture of right femur, initial encounter for closed fracture Code(s): S72.143A - Displaced intertrochanteric fracture of unspecified femur, initial encounter for closed fracture Status: Acute Assessment and Plan: POD#2: INSERTION TROCHANTERIC NAIL RIGHT HIP Continue PT/OT. PWB. Walker. HIGH FALL RISK. Continue pain control. Ice hip. Protect skin. DVT prophylaxis with Heparin SCDs. Incentive Spirometry Use reviewed. Monitor Dressing. Change prior to discharge. Bowel Regimen. Dispo: SNF pending progress with PT/OT and medical clearance Time Spent With Patient Time: Reviewed history, exam, radiographs and current labs with attending MD and covering surgeon, Dr. Jama, who agrees with current plan as indicated above. No further recommendations from Dr. Jama at this time. Subjective Subjective Date/Time Seen: 02/07/25 10:41 Interval history: POD #2: ORIF Right Elbow Difficulty with confusion/pulling at IVs/[place] and dressing. Resting at time of exam. Rousable to voice. Review of Systems Review of Systems: ROS unobtainable: Yes unobtainable due to mental status Exam Const: General: comfortable and no acute distress Extrem: Right upper extremity: elbow/forearm (splint c/d/i ), wrist (split c/d/i ) and Extremity exam: right hand normal to inspection and no swelling Objective Data Vital Signs Vital Signs: Vital Signs - 24 hr 02/06/25 12:00 02/06/25 13:14 02/06/25 13:35 Temperature Pulse Rate 112 H Respiratory Rate Blood Pressure Pulse Oximetry Oxygen Delivery Nasal Cannula Room Air Oxygen Flow Rate 2 02/06/25 13:43 02/06/25 16:00 02/06/25 17:43 Temperature 36.4 C L 36.3 C L Pulse Rate 110 H 99 112 H Respiratory Rate 18 18 Blood Pressure 140/69 148/55 H Pulse Oximetry 98 94 Oxygen Delivery Oxygen Flow Rate 02/06/25 20:00 02/06/25 20:58 02/07/25 00:00 Temperature 37.1 C Pulse Rate 126 H 113 H 117 H Respiratory Rate 18 Blood Pressure 125/51 L Pulse Oximetry 92 Oxygen Delivery Oxygen Flow Rate 02/07/25 05:07 Temperature 36.9 C Pulse Rate 120 H Respiratory Rate 18 Blood Pressure 133/58 L Pulse Oximetry 93 Oxygen Delivery Oxygen Flow Rate Intake/Output Intake/Output: Intake & Output 02/04/25 02/05/25 02/06/25 02/07/25 23:59 23:59 23:59 23:59 Intake Total 2350 1650 2498.7 0 Output Total 800 1950 925 375 Balance 1550 -300 1573.7 -375 Meds/Results Medications: Active Medications Generic Name Dose Route Start Last Admin Trade Name Freq PRN Reason Stop Dose Admin Acetaminophen 500 mg 02/05/25 15:58 Acetaminophen 500 Mg Tablet PO Q6H PRN Pain Rated 1-3 Alteplase, Recombinant 2 mg 02/07/25 05:25 Alteplase 2 Mg Vial (Cathflo) IV PUSH ONCE PRN Line Occlusion Calcium Carbonate 500 mg 02/03/25 17:00 02/06/25 17:29 Calcium Carbonate (Oscal) 500 Mg Tablet PO 500 mg DAILY@1700 DELMI Administration Celecoxib 200 mg 02/06/25 08:00 02/07/25 08:11 Celecoxib 200 Mg Capsule PO 200 mg DAILY@0800 DELMI Administration Diazepam 5 mg 02/05/25 15:58 Diazepam (*Crx) 5 Mg Tablet PO Q8H PRN Muscle Spasm Donepezil HCl 10 mg 02/03/25 09:00 02/07/25 08:11 Donepezil Hcl 10 Mg Tablet PO 10 mg DAILY DELMI Administration Famotidine 20 mg 02/05/25 21:00 02/07/25 08:11 Famotidine 20 Mg Tablet PO 20 mg Q12HR DELMI Administration Folic Acid 0.4 mg 02/03/25 09:00 02/07/25 08:11 Folic Acid 0.4 Mg Tablet PO 0.4 mg DAILY DELMI Administration Heparin Sodium (Porcine) 5,000 units 02/05/25 21:00 02/07/25 08:11 Heparin Sodium 5,000 Units/Ml Vial SUB-Q 5,000 units Q12HR DELMI Administration Hydromorphone HCl 1 mg 02/05/25 15:58 02/07/25 01:43 Hydromorphone Hcl Inj (*Crx) 1 Mg/Ml Syr IV PUSH 1 mg Q2H PRN Administration Breakthrough Pain Rated 7-10 or NPO Hydromorphone HCl 0.5 mg 02/05/25 15:58 02/06/25 13:32 Hydromorphone Hcl Inj (*Crx) 1 Mg/Ml Syr IV PUSH 0.5 mg Q2H PRN Administration Breakthrough Pain Rated 4-6 or NPO Hydroxyzine Pamoate 50 mg 02/05/25 15:58 Hydroxyzine Pamoate 25 Mg Capsule PO Q4H PRN Itching Ibuprofen 800 mg in 200 mls @ 400 mls/hr 02/05/25 15:58 Caldolor 800 Mg/200 Ml IVPB Q6H PRN Breakthrough Pain Rated 1-3 or NPO Dextrose/Sodium Chloride 1,000 mls @ 80 mls/hr 02/05/25 15:58 02/07/25 01:46 Dextrose 5% Sodium Chloride 0.45% IV CONT 80 mls/hr .[id number] DELMI Administration Metronidazole 500 mg in 100 mls @ 100 mls/hr 02/05/25 23:00 02/07/25 05:51 Flagyl 500 Mg/Iso Soln 100 Ml IVPB 100 mls/hr Q8H DELMI Administration Levothyroxine Sodium 56 mcg 02/05/25 06:30 02/07/25 05:49 Levothyroxine Sodium Inj 100 Mcg/5 Ml Vial IV PUSH 56 mcg DAILY@0630 DELMI Administration Multivitamins/Calcium 1 tablet 02/03/25 09:00 02/07/25 08:11 Therapeutic Multivitamins/Minerals Tab (*Bkc) PO 1 tablet DAILY DELMI Administration Naloxone HCl 0.1 mg 02/05/25 15:58 Naloxone Hcl 0.4 Mg/Ml Vial IV PUSH Q2M PRN Opiate Reversal Methenamine 1 gm 02/03/25 09:00 02/07/25 08:20 Hippurate 1 Gram PO 03/05/25 08:59 1 gm Tablet Will Not Q12H DELMI Administration Scan Ondansetron HCl 4 mg 02/05/25 15:58 Ondansetron Inj 4 Mg/2 Ml Vial IV PUSH Q4H PRN Nausea And Vomiting Oxycodone/Acetaminophen 1 tablet 02/05/25 15:58 Oxycodone/Acetaminophen (*Crx) 5-325 Mg Tablet PO Q4H PRN Pain Rated 4-6 Oxycodone/Acetaminophen 1 tab 02/05/25 15:58 Oxycodone/Acetaminophen (*Crx) 10-325 Mg Tablet PO Q6H PRN Pain Rated 7-10 Senna/Docusate Sodium 2 tab 02/05/25 17:00 02/07/25 08:11 Senna/Docusate Sodium Tablet PO 2 tab BID DELMI Administration Simvastatin 20 mg 02/05/25 18:00 02/06/25 17:29 Simvastatin 20 Mg Tablet PO 20 mg QPM DELMI Administration Timolol Maleate 1 drop 02/03/25 09:00 02/07/25 08:16 Timolol Maleate 0.5% Op Soln 5 Ml Bottle EACH EYE 1 drop DAILY DELMI Administration Vitamin D 25 mcg 02/03/25 09:00 02/07/25 08:11 Cholecalciferol (Vitamin D3) 25 Mcg (1,000 Units) Tablet PO 25 mcg DAILY DELMI Administration Vitamin E 1,000 unit 02/06/25 08:00 02/07/25 08:13 Vitamin E 1,000 Unit Capsule PO Not Given DAILY@0800 [facility] Radiology Results: ITS Impressions Head CT 02/03/25 08:34 IMPRESSION: 1. Stable extensive nonspecific cerebral white matter disease, which likely represents chronic small vessel ischemic disease. Cervical Spine CT 02/03/25 09:31 IMPRESSION: 1. No acute fracture. 2. Severe cervical spondylosis. Modified Barium Swallow 02/04/25 12:39 IMPRESSION: Oropharyngeal dysphagia with laryngeal penetration and aspiration with multiple consistencies Please correlate with speech pathologist findings and specific feeding recommendations. Intraoperative X-Ray 02/05/25 14:04 IMPRESSION: 1. Near-anatomic alignment post open reduction internal fixation of an intra-articular proximal right ulnar fracture. See procedure note for further detail. Chest X-Ray 02/05/25 15:00 Impression: CHF. Superimposed probable pneumonia. Left-sided line possibly within a left-sided SVC but exact location not clear. Correlation with CT is suggested Labs Labs: Laboratory Results - last 24 hr 02/03/25 02/07/25 02/07/25 13:37 08:15 08:42 WBC 17.2 H RBC 2.71 L Hgb 7.9 L Hct 24.2 L MCV 89.3 MCH 29.2 MCHC 32.6 RDW 16.8 H Plt Count 207 MPV 10.5 H Puncture Site Left radial ABG pH 7.483 H ABG pCO2 29.4 L ABG pO2 57.0 L ABG PO2/FiO2 Ratio 2.71 ABG HCO3 21.6 L ABG O2 Saturation 92.1 L ABG O2 Content 11.0 L ABG Base Excess -1.4 A-a Gradient 57.5 Oxyhemoglobin 89.6 L Total Hemoglobin 8.7 L O2 Delivery Device Room air O2 Liters/Min Not Reportable FiO2 21 Sodium 134 L Potassium 3.4 Chloride 108 H Carbon Dioxide 22 Anion Gap 4 BUN 9 Creatinine 0.53 L Estim Creat Clear Calc 55 Estimated GFR > 60 Glucose 116 H Calcium 7.7 L Magnesium 2.0 Crossmatch See Detail
--- NOTE | 2025-02-07 15:25 | P.PNIM_ITS ---
Progress Note: A&P Assessment and Plan (1) Closed intertrochanteric fracture: Qualifiers: Encounter type: initial encounter Fracture alignment: displaced Laterality: right Qualified Code(s): S72.141A - Displaced intertrochanteric fracture of right femur, initial encounter for closed fracture Code(s): S72.143A - Displaced intertrochanteric fracture of unspecified femur, initial encounter for closed fracture Status: Acute (2) Closed olecranon fracture: Qualifiers: Encounter type: initial encounter Laterality: right Qualified Code(s): S52.021A - Displaced fracture of olecranon process without intraarticular extension of right ulna, initial encounter for closed fracture Code(s): S52.023A - Displaced fracture of olecranon process without intraarticular extension of unspecified ulna, initial encounter for closed fracture Status: Acute (3) Pneumonia: Qualifiers: Laterality: unspecified laterality Lung location: unspecified part of lung Pneumonia type: due to unspecified organism Qualified Code(s): J18.9 - Pneumonia, unspecified organism Code(s): J18.9 - Pneumonia, unspecified organism Status: Acute (4) Hypothyroidism: Qualifiers: Hypothyroidism type: postoperative Qualified Code(s): E89.0 - Postprocedural hypothyroidism Code(s): E03.9 - Hypothyroidism, unspecified Status: Acute (5) Fall from ground level: Code(s): W18.30XA - Fall on same level, unspecified, initial encounter Status: Acute Plan Patient ground level fall resulting in a right olecranon fracture and right intratrochanteric fracture. She has been placed on morphine as needed for pain. Vitale catheter has been placed due to immobility and is draining well. Orthopedic surgery has been consulted. Patient will be NPO except for meds with sips until evaluated by Orthopedic surgery to determine scheduling of operative procedure. Patient's x-ray is suggestive of pneumonia and she does have some leukocytosis. She has some conversational tachypnea time my evaluation but no hypoxia. Blood cultures were obtained and are pending. The patient has been started empiric antibiotic therapy with Rocephin and doxycycline. Will repeat CBC and electrolyte panel in a.m. Patient has history of thyroidectomy is naproxen which will be continued. Patient has been admitted as observation status. patient with comminuted displaced fracture olecranon and comminuted intertrochanteric fracture discussed with her surgeon it will bed a difficulty surgery for her elbow, today patient had ORIF both the elbow and the hip, just returned from surgery, will monitor, on 02/04 patient was in pain and appear restless but had been refusing her pain medications, I discussed with the patient and she has agreed to take the pain medications.will follow up and monitor. patient daughter was present and gave updates. S/P ORIF of both the elbow and his POD #2 today patient was little confused this morning and was trying to pull her IJ out, and not cooperative, patient was given Xanax 0.5mg PO this has calm the patient and now sleeping, patient family is concern that patient had stroke when she fell, both CT of head and neck are normal, further evaluation will do MRI of brain and neck and monitor, will follow and patient will be seen by her surgeon and further recommendation to follow. Subjective Date/time seen: 02/07/25 15:25 Interval history: Fall with right arm and hip pain H&P-Narrative: 89-year-old female with a past medical history of mild dementia, hypothyroidism, and glaucoma who presented to the ER from [facility] via EMS after ground level fall resulting in right hip and right elbow pain. Patient reports that she was trying to get up from the toilet with her walker and fell. There was not a staff member with her when she fell. She denies hitting her head or having any loss of consciousness. She reported any right elbow pain and right thigh pain. She reports her pain is about a 6/10 in intensity after [place] and 1 dose morphine. She does not want any additional pain medication. She does have some conversational tachypnea noted during evaluation but denies any significant shortness of breath or recent cough. She is now a fevers or chills. She has not been having any chest pain. She does not have a history of CHF in has no localizing edema to suggest heart failure. She had a negative COVID, flu and RSV PCR in the ER. She denies any recent urinary symptoms. Review H&P, Patient stats pain worsen when she moves, patient will be seen by an orthopedic will have ORIF tomorrow, patient no other complaints, will monitor. patient with comminuted displaced fracture olecranon and comminuted intertrochanteric fracture discussed with her surgeon it will bed a difficulty surgery for her elbow, today patient had ORIF both the elbow and the hip, just returned from surgery, will monitor, on 02/04 patient was in pain and appear restless but had been refusing her pain medications, I discussed with the patient and she has agreed to take the pain medications.will follow up and monitor. patient daughter was present and gave updates. S/P ORIF of both the elbow and his POD #2 today patient was little confused this morning and was trying to pull her IJ out, and not cooperative, patient was given Xanax 0.5mg PO this has calm the patient and now sleeping, patient family is concern that patient had stroke when she fell, both CT of head and neck are normal, further evaluation will do MRI of brain and neck and monitor, will follow and patient will be seen by her surgeon and further recommendation to follow. Review of Systems Review of Systems: 12 systems were reviewed with pertinent positives and negatives per HPI. Except as documented in the HPI, all other systems were reviewed and are negative. Exam Narrative: Elderly frail Patient is comfortable, NAD HEENT: eyes are clear and none icteric LUNGS:CTA HEART: RR S1S2 ABD: BS+, Soft and nontender Lower extremities: no edema MS: right arm in wound dressing SKIN: nonjaundiced Neuro: grossly intact. Objective Data Vital Signs Vital Signs: Vital Signs - 24 hr 02/06/25 16:00 02/06/25 17:43 02/06/25 20:00 Temperature 36.3 C L Pulse Rate 99 112 H 126 H Respiratory Rate 18 Blood Pressure 148/55 H Pulse Oximetry 94 02/06/25 20:58 02/07/25 00:00 02/07/25 05:07 Temperature 37.1 C 36.9 C Pulse Rate 113 H 117 H 120 H Respiratory Rate 18 18 Blood Pressure 125/51 L 133/58 L Pulse Oximetry 92 93 02/07/25 14:00 Temperature 36.2 C L Pulse Rate 107 H Respiratory Rate 16 Blood Pressure 117/52 L Pulse Oximetry 93 Intake/Output Intake/Output: Intake & Output 02/04/25 02/05/25 02/06/25 02/07/25 23:59 23:59 23:59 23:59 Intake Total 2350 1650 2498.7 100 Output Total 800 1950 925 375 Balance 1550 -300 1573.7 -275 Meds/Results Medications: Active Medications Generic Name Dose Route Start Last Admin Trade Name Freq PRN Reason Stop Dose Admin Acetaminophen 500 mg 02/05/25 15:58 Acetaminophen 500 Mg Tablet PO Q6H PRN Pain Rated 1-3 Alteplase, Recombinant 2 mg 02/07/25 05:25 Alteplase 2 Mg Vial (Cathflo) IV PUSH ONCE PRN Line Occlusion Calcium Carbonate 500 mg 02/03/25 17:00 02/06/25 17:29 Calcium Carbonate (Oscal) 500 Mg Tablet PO 500 mg DAILY@1700 DELMI Administration Celecoxib 200 mg 02/06/25 08:00 02/07/25 08:11 Celecoxib 200 Mg Capsule PO 200 mg DAILY@0800 [facility] Administration Diazepam 5 mg 02/05/25 15:58 Diazepam (*Crx) 5 Mg Tablet PO Q8H PRN Muscle Spasm Donepezil HCl 10 mg 02/03/25 09:00 02/07/25 08:11 Donepezil Hcl 10 Mg Tablet PO 10 mg DAILY DELMI Administration Famotidine 20 mg 02/05/25 21:00 02/07/25 08:11 Famotidine 20 Mg Tablet PO 20 mg Q12HR DELMI Administration Folic Acid 0.4 mg 02/03/25 09:00 02/07/25 08:11 Folic Acid 0.4 Mg Tablet PO 0.4 mg DAILY DELMI Administration Heparin Sodium (Porcine) 5,000 units 02/05/25 21:00 02/07/25 08:11 Heparin Sodium 5,000 Units/Ml Vial SUB-Q 5,000 units Q12HR DELMI Administration Hydromorphone HCl 1 mg 02/05/25 15:58 02/07/25 01:43 Hydromorphone Hcl Inj (*Crx) 1 Mg/Ml Syr IV PUSH 1 mg Q2H PRN Administration Breakthrough Pain Rated 7-10 or NPO Hydromorphone HCl 0.5 mg 02/05/25 15:58 02/06/25 13:32 Hydromorphone Hcl Inj (*Crx) 1 Mg/Ml Syr IV PUSH 0.5 mg Q2H PRN Administration Breakthrough Pain Rated 4-6 or NPO Hydroxyzine Pamoate 50 mg 02/05/25 15:58 Hydroxyzine Pamoate 25 Mg Capsule PO Q4H PRN Itching Ibuprofen 800 mg in 200 mls @ 400 mls/hr 02/05/25 15:58 Caldolor 800 Mg/200 Ml IVPB Q6H PRN Breakthrough Pain Rated 1-3 or NPO Dextrose/Sodium Chloride 1,000 mls @ 80 mls/hr 02/05/25 15:58 02/07/25 01:46 Dextrose 5% Sodium Chloride 0.45% IV CONT 80 mls/hr .[id number] DELMI Administration Metronidazole 500 mg in 100 mls @ 100 mls/hr 02/05/25 23:00 02/07/25 14:13 Flagyl 500 Mg/Iso Soln 100 Ml IVPB 100 mls/hr Q8H DELMI Administration Levothyroxine Sodium 56 mcg 02/05/25 06:30 02/07/25 05:49 Levothyroxine Sodium Inj 100 Mcg/5 Ml Vial IV PUSH 56 mcg DAILY@0630 DELMI Administration Multivitamins/Calcium 1 tablet 02/03/25 09:00 02/07/25 08:11 Therapeutic Multivitamins/Minerals Tab (*Bkc) PO 1 tablet DAILY DELMI Administration Naloxone HCl 0.1 mg 02/05/25 15:58 Naloxone Hcl 0.4 Mg/Ml Vial IV PUSH Q2M PRN Opiate Reversal Methenamine 1 gm 02/03/25 09:00 02/07/25 08:20 Hippurate 1 Gram PO 03/05/25 08:59 1 gm Tablet Will Not Q12H DELMI Administration Scan Ondansetron HCl 4 mg 02/05/25 15:58 Ondansetron Inj 4 Mg/2 Ml Vial IV PUSH Q4H PRN Nausea And Vomiting Oxycodone/Acetaminophen 1 tablet 02/05/25 15:58 Oxycodone/Acetaminophen (*Crx) 5-325 Mg Tablet PO Q4H PRN Pain Rated 4-6 Oxycodone/Acetaminophen 1 tab 02/05/25 15:58 Oxycodone/Acetaminophen (*Crx) 10-325 Mg Tablet PO Q6H PRN Pain Rated 7-10 Senna/Docusate Sodium 2 tab 02/05/25 17:00 02/07/25 08:11 Senna/Docusate Sodium Tablet PO 2 tab BID DELMI Administration Simvastatin 20 mg 02/05/25 18:00 02/06/25 17:29 Simvastatin 20 Mg Tablet PO 20 mg QPM DELMI Administration Timolol Maleate 1 drop 02/03/25 09:00 02/07/25 08:16 Timolol Maleate 0.5% Op Soln 5 Ml Bottle EACH EYE 1 drop DAILY DELMI Administration Vitamin D 25 mcg 02/03/25 09:00 02/07/25 08:11 Cholecalciferol (Vitamin D3) 25 Mcg (1,000 Units) Tablet PO 25 mcg DAILY DELMI Administration Vitamin E 1,000 unit 02/06/25 08:00 02/07/25 08:13 Vitamin E 1,000 Unit Capsule PO Not Given DAILY@0800 [facility] Radiology Results: ITS Impressions Head CT 02/03/25 08:34 IMPRESSION: 1. Stable extensive nonspecific cerebral white matter disease, which likely represents chronic small vessel ischemic disease. Cervical Spine CT 02/03/25 09:31 IMPRESSION: 1. No acute fracture. 2. Severe cervical spondylosis. Modified Barium Swallow 02/04/25 12:39 IMPRESSION: Oropharyngeal dysphagia with laryngeal penetration and aspiration wi th multiple consistencies Please correlate with speech pathologist findings and specific feeding recommendations. Intraoperative X-Ray 02/05/25 14:04 IMPRESSION: 1. Near-anatomic alignment post open reduction internal fixation of an intra- articular proximal right ulnar fracture. See procedure note for further detail. Chest X-Ray 02/05/25 15:00 Impression: CHF. Superimposed probable pneumonia. Left-sided line possibly within a left- sided SVC but exact location not clear. Correlation with CT is suggested Labs Labs: Laboratory Results - last 24 hr 02/07/25 02/07/25 08:15 08:42 WBC 17.2 H RBC 2.71 L Hgb 7.9 L Hct 24.2 L MCV 89.3 MCH 29.2 MCHC 32.6 RDW 16.8 H Plt Count 207 MPV 10.5 H Puncture Site Left radial ABG pH 7.483 H ABG pCO2 29.4 L ABG pO2 57.0 L ABG PO2/FiO2 Ratio 2.71 ABG HCO3 21.6 L ABG O2 Saturation 92.1 L ABG O2 Content 11.0 L ABG Base Excess -1.4 A-a Gradient 57.5 Oxyhemoglobin 89.6 L Total Hemoglobin 8.7 L O2 Delivery Device Room air O2 Liters/Min Not Reportable FiO2 21 Sodium 134 L Potassium 3.4 Chloride 108 H Carbon Dioxide 22 Anion Gap 4 BUN 9 Creatinine 0.53 L Estim Creat Clear Calc 55 Estimated GFR > 60 Glucose 116 H Calcium 7.7 L Magnesium 2.0 Quality VTE Prophylaxis VTE prophylaxis: mechanical ordered (SCDs)
--- NOTE | 2025-02-07 15:26 | PCOTNOTE ---
Patient unable to participate, very difficult to arouse and stay alert. Patient's daughter present in the room, states Patient is having additional testing performed tomorrow, requested to try back tomorrow.
--- NOTE | 2025-02-07 15:44 | PCSTNOTE ---
02/07/25 Attempted MBS in AM patient was too lethargic. Will attempt again tomorrow.
--- NOTE | 2025-02-07 17:37 | PC.NURSE ---
this nurse got a call from MRI stating pt. was not a good candidate for MRI due to uncooperative during scan. was notified.
[2025-02-07 19:23] LABS: Non Pathogenic Casts 0-2
[2025-02-07 19:24] LABS: Add Urine Microscopic? YES; Appearance Urine Clear (Clear); Glucose Urine UA Negative (Negative); Leukocyte Esterase Ur Negative LEU/UL (Negative); Nitrate Urine Negative (Negative); Specific Grav Ur 1.006 (1.001-1.035)
[2025-02-08] VITALS (9 sets, daily range): BP systolic 146–162; BP diastolic 68–70; PULSE 98–125; RESP 18–22; TEMP 36.3–36.7; O2SAT 93–96; BMI 10.0; BMI 24.7
[2025-02-08] MEDS: metroNIDAZOLE 500 MG/ISO 100ML 500 MG/100 ML BAG 100 MG IVPB ×3 (06:41→22:34)
[2025-02-08] MEDS: LEVOTHYROXINE SODIUM INJ 100 MCG/5 ML VIAL 56 MCG IV PUSH (06:42)
[2025-02-08 07:50] LABS: Hematocrit 25.1 % (37.0-47.0); Hemoglobin 8.0 g/dL (12.0-15.0); Mean Corpuscular HGB Conc 31.9 g/dl (32-36); Mean Corpuscular Hemoglobin 29.3 pg (26-34); Mean Corpuscular Volume 91.9 fl (80-100); Platelet Count Result 235 k/mm3 (150-375); Red Blood Count 2.73 M/mm3 (4.2-5.4); White Blood Count 14.6 K/mm3 (4.5-10.0)
[2025-02-08 08:20] LABS: Anion Gap 2 mmol/L (4-12); Blood Urea Nitrogen 8 mg/dL (7-17); Calcium 7.6 mg/dL (8.4-10.2); Carbon Dioxide 27 mmol/L (22-30); Chloride 110 mmol/L (98-107); Estimated CRCL calculation 54 ml/min; Estimated Glomerular Filt Rate > 60; Glucose 103 mg/dL (65-110); Magnesium 2.3 mg/dL (1.6-2.3); Potassium 2.8 mmol/L (3.4-5.0); Sodium 139 mmol/L (137-145)
--- NOTE | 2025-02-08 08:34 | PC.NURSE ---
Critical lab result called to provider. Orders received.
[2025-02-08] MEDS: TIMOLOL MALEATE 0.5% OP SOLN 5 ML BOTTLE 1 DROP EACH EYE (09:43)
[2025-02-08] MEDS: FAMOTIDINE 20 MG/2 ML VIAL IV PUSH ×2 (09:43→21:43)
--- NOTE | 2025-02-08 09:43 | PM.PNORT ---
Progress Note: A&P Assessment and Plan (1) Closed olecranon fracture: Qualifiers: Encounter type: initial encounter Laterality: right Qualified Code(s): S52.021A - Displaced fracture of olecranon process without intraarticular extension of right ulna, initial encounter for closed fracture Code(s): S52.023A - Displaced fracture of olecranon process without intraarticular extension of unspecified ulna, initial encounter for closed fracture Status: Acute Assessment and Plan: POD #3: ORIF Right Elbow Continue PT/OT. NWB RUE. Forearm walker. Continue pain control. Ice Elbow. Protect skin. DVT prophylaxis with Heparin. Keep splint c/d/i. Dispo: SNF pending progress with PT/OT and medical stability (2) Closed intertrochanteric fracture: Qualifiers: Encounter type: initial encounter Fracture alignment: displaced Laterality: right Qualified Code(s): S72.141A - Displaced intertrochanteric fracture of right femur, initial encounter for closed fracture Code(s): S72.143A - Displaced intertrochanteric fracture of unspecified femur, initial encounter for closed fracture Status: Acute Assessment and Plan: POD#3: INSERTION TROCHANTERIC NAIL RIGHT HIP Continue PT/OT. PWB. Walker. HIGH FALL RISK. Continue pain control. LIMIT NARCOTICS. Ice hip. Protect skin. DVT prophylaxis with Heparin SCDs. Incentive Spirometry Use reviewed. Monitor Dressing. Change prior to discharge. Bowel Regimen. Dispo: SNF pending progress with PT/OT and medical clearance Time Spent With Patient Time: Reviewed history, exam, radiographs and current labs with attending MD and covering surgeon, Dr. Jama, who agrees with current plan as indicated above. No further recommendations from Dr. Jama at this time. Subjective Subjective Date/Time Seen: 02/08/25 09:43 Interval history: POD #3: ORIF Right Elbow Difficulty with confusion/pulling at IVs/[place]ak and dressing. Awake. Alert to place. Uncomfortable. Review of Systems Review of Systems: ROS unobtainable: Yes unobtainable due to mental status Exam Const: General: comfortable and no acute distress Resp: Effort & Inspection: normal respiratory effort Cardio: Rate: regular rate Rhythm: regular rhythm GI: Inspection: non-distended Skin: General skin exam: normal color Other: Incision right hip c/d/i. Surrounding tissue without redness/warmth. Mild swelling consistent with recent surgery. No drainage. Neuro: Cognition (Neuro): normal cognition Speech: normal speech Extrem: Right upper extremity: elbow/forearm (splint c/d/i ), wrist (split c/d/i ) and Extremity exam: right hand normal to inspection and no swelling Right lower extremity: normal to inspection, normal capillary refill, hip/thigh Details: tenderness Location: of the hip (Thigh soft ) Location: laterally and anteriorly, swelling Location: at the hip, abnormal ROM (limited consistent with recent surgery ) Details: pain with active ROM during and pain with passive ROM during and other (Incision c/d/i. ); no deformity and no unusual warmth, knee Details: normal to inspection; no tenderness and no swelling, lower leg (Negative Travis's Sign ) Details: normal to inspection and no edema; no tenderness, ankle (+ankle dorsiflexion/plantarflexion) Details: normal to inspection and no edema; no tenderness, no swelling and no ecchymosis and foot Details: normal capillary refill, toes with normal ROM, vascular exam Details: dorsalis pedis pulse present and motor-sensory exam Details: light-touch normal; no tenderness Objective Data Vital Signs Vital Signs: Vital Signs - 24 hr 02/07/25 12:00 02/07/25 14:00 02/07/25 16:00 Temperature 36.2 C L Pulse Rate 103 H 107 H 110 H Respiratory Rate 16 Blood Pressure 117/52 L Pulse Oximetry 93 Oxygen Delivery 02/07/25 20:00 02/07/25 20:00 02/07/25 22:00 Temperature 36.8 C Pulse Rate 108 H 104 H Respiratory Rate 17 Blood Pressure 135/61 Pulse Oximetry 98 Oxygen Delivery Room Air 02/08/25 00:00 02/08/25 04:00 02/08/25 05:19 Temperature 36.6 C Pulse Rate 112 H 98 102 H Respiratory Rate 18 Blood Pressure 156/68 H Pulse Oximetry 96 Oxygen Delivery Intake/Output Intake/Output: Intake & Output 02/05/25 02/06/25 02/07/25 02/08/25 23:59 23:59 23:59 23:59 Intake Total 1650 2498.7 1300 Output Total 8466 983 0622 Balance -300 1573.7 75 Meds/Results Medications: Active Medications Generic Name Dose Route Start Last Admin Trade Name Freq PRN Reason Stop Dose Admin Acetaminophen 500 mg 02/05/25 15:58 Acetaminophen 500 Mg Tablet PO On Hold: 02/07/25 21:15 Q6H PRN Pain Rated 1-3 Acetaminophen 650 mg 02/07/25 21:18 Acetaminophen 650 Mg Suppository RECTAL Q6H PRN Mild Pain (1-3) or Fever Alteplase, Recombinant 2 mg 02/07/25 05:25 Alteplase 2 Mg Vial (Cathflo) IV PUSH ONCE PRN Line Occlusion Calcium Carbonate 500 mg 02/03/25 17:00 02/07/25 16:11 Calcium Carbonate (Oscal) 500 Mg Tablet PO Not Given DAILY@1700 [facility] Celecoxib 200 mg 02/06/25 08:00 02/08/25 09:40 Celecoxib 200 Mg Capsule PO Not Given DAILY@0800 [facility] Diazepam 5 mg 02/05/25 15:58 Diazepam (*Crx) 5 Mg Tablet PO On Hold: 02/07/25 21:15 Q8H PRN Muscle Spasm Diazepam 2 mg 02/07/25 21:20 Diazepam Inj (*Crx) 10 Mg/2 Ml Syringe IV PUSH Q6HR PRN Muscle Spasticity Donepezil HCl 10 mg 02/03/25 09:00 02/08/25 09:40 Donepezil Hcl 10 Mg Tablet PO Not Given DAILY [facility] Famotidine 20 mg 02/05/25 21:00 02/07/25 22:25 Famotidine 20 Mg Tablet PO Not Given On Hold: 02/07/25 21:17 Q12HR [facility] Famotidine 20 mg 02/08/25 09:00 02/08/25 09:43 Famotidine 20 Mg/2 Ml Vial IV PUSH 20 mg Q12HR [facility] Administration Folic Acid 0.4 mg 02/03/25 09:00 02/08/25 09:40 Folic Acid 0.4 Mg Tablet PO Not Given DAILY [facility] Heparin Sodium (Porcine) 5,000 units 02/05/25 21:00 02/08/25 09:43 Heparin Sodium 5,000 Units/Ml Vial SUB-Q 5,000 units Q12HR DELMI Administration Hydromorphone HCl 1 mg 02/05/25 15:58 02/07/25 01:43 Hydromorphone Hcl Inj (*Crx) 1 Mg/Ml Syr IV PUSH 1 mg Q2H PRN Administration Breakthrough Pain Rated 7-10 or NPO Hydromorphone HCl 0.5 mg 02/05/25 15:58 02/06/25 13:32 Hydromorphone Hcl Inj (*Crx) 1 Mg/Ml Syr IV PUSH 0.5 mg Q2H PRN Administration Breakthrough Pain Rated 4-6 or NPO Hydroxyzine Pamoate 50 mg 02/05/25 15:58 Hydroxyzine Pamoate 25 Mg Capsule PO On Hold: 02/07/25 21:17 Q4H PRN Itching Ibuprofen 800 mg in 200 mls @ 400 mls/hr 02/05/25 15:58 Caldolor 800 Mg/200 Ml IVPB Q6H PRN Breakthrough Pain Rated 1-3 or NPO Dextrose/Sodium Chloride 1,000 mls @ 80 mls/hr 02/05/25 15:58 02/08/25 09:39 Dextrose 5% Sodium Chloride 0.45% IV CONT Not Given .[id number] DELMI Metronidazole 500 mg in 100 mls @ 100 mls/hr 02/05/25 23:00 02/08/25 06:41 Flagyl 500 Mg/Iso Soln 100 Ml IVPB 100 mls/hr Q8H DEMLI Administration Levothyroxine Sodium 56 mcg 02/05/25 06:30 02/08/25 06:42 Levothyroxine Sodium Inj 100 Mcg/5 Ml Vial IV PUSH 56 mcg DAILY@0630 [facility] Administration Multivitamins/Calcium 1 tablet 02/03/25 09:00 02/08/25 09:41 Therapeutic Multivitamins/Minerals Tab (*Bkc) PO Not Given DAILY [facility] Naloxone HCl 0.1 mg 02/05/25 15:58 Naloxone Hcl 0.4 Mg/Ml Vial IV PUSH Q2M PRN Opiate Reversal Methenamine 1 gm 02/03/25 09:00 02/08/25 09:41 Hippurate 1 Gram PO 03/05/25 08:59 Not Given Tablet Will Not Q12H DELMI Scan Ondansetron HCl 4 mg 02/05/25 15:58 Ondansetron Inj 4 Mg/2 Ml Vial IV PUSH Q4H PRN Nausea And Vomiting Oxycodone/Acetaminophen 1 tablet 02/05/25 15:58 Oxycodone/Acetaminophen (*Crx) 5-325 Mg Tablet PO On Hold: 02/07/25 21:16 Q4H PRN Pain Rated 4-6 Oxycodone/Acetaminophen 1 tab 02/05/25 15:58 Oxycodone/Acetaminophen (*Crx) 10-325 Mg Tablet PO On Hold: 02/07/25 21:16 Q6H PRN Pain Rated 7-10 Senna/Docusate Sodium 2 tab 02/05/25 17:00 02/08/25 09:40 Senna/Docusate Sodium Tablet PO Not Given BID [facility] Simvastatin 20 mg 02/05/25 18:00 02/07/25 16:12 Simvastatin 20 Mg Tablet PO Not Given QPM [facility] Timolol Maleate 1 drop 02/03/25 09:00 02/08/25 09:43 Timolol Maleate 0.5% Op Soln 5 Ml Bottle EACH EYE 1 drop DAILY [facility] Administration Vitamin D 25 mcg 02/03/25 09:00 02/08/25 09:40 Cholecalciferol (Vitamin D3) 25 Mcg (1,000 Units) Tablet PO Not Given DAILY [facility] Vitamin E 1,000 unit 02/06/25 08:00 02/08/25 09:40 Vitamin E 1,000 Unit Capsule PO Not Given DAILY@0800 [facility] Radiology Results: ITS Impressions Head CT 02/03/25 08:34 IMPRESSION: 1. Stable extensive nonspecific cerebral white matter disease, which likely represents chronic small vessel ischemic disease. Cervical Spine CT 02/03/25 09:31 IMPRESSION: 1. No acute fracture. 2. Severe cervical spondylosis. Modified Barium Swallow 02/04/25 12:39 IMPRESSION: Oropharyngeal dysphagia with laryngeal penetration and aspiration with multiple consistencies Please correlate with speech pathologist findings and specific feeding recommendations. Intraoperative X-Ray 02/05/25 14:04 IMPRESSION: 1. Near-anatomic alignment post open reduction internal fixation of an intra-articular proximal right ulnar fracture. See procedure note for further detail. Chest X-Ray 02/05/25 15:00 Impression: CHF. Superimposed probable pneumonia. Left-sided line possibly within a left-sided SVC but exact location not clear. Correlation with CT is suggested Brain MRI 02/08/25 08:06 IMPRESSION: 1. Extensive nonspecific cerebral white matter disease, which likely represents chronic small vessel ischemic disease. 2. Note that some sequences were not performed due to patient noncompliance. Labs Labs: Laboratory Results - last 24 hr 02/07/25 02/08/25 18:36 07:42 WBC 14.6 H RBC 2.73 L Hgb 8.0 L Hct 25.1 L MCV 91.9 MCH 29.3 MCHC 31.9 L RDW 17.4 H Plt Count 235 MPV 10.3 Sodium 139 Potassium 2.8 L* Chloride 110 H Carbon Dioxide 27 Anion Gap 2 L BUN 8 Creatinine 0.55 L Estim Creat Clear Calc 54 Estimated GFR > 60 Glucose 103 Calcium 7.6 L Magnesium 2.3 Urine Color Yellow Urine Appearance Clear Urine pH 6.0 Ur Specific [place] 1.006 Urine Protein Negative Urine Glucose (UA) Negative Urine Ketones Negative Ur Blood (Man) 1+ H Urine Nitrate Negative Urine Bilirubin Negative Urine Urobilinogen 0.2 Ur Leukocyte Esterase Negative Urine RBC 6-10 H Urine WBC 0-5 Ur Squamous Epith Cells None seen Urine Bacteria None seen Urine Casts 0-2 Quality VTE Prophylaxis VTE prophylaxis: mechanical ordered
[2025-02-08] MEDS: POTASSIUM CHLORIDE INJ 40 MEQ in SODIUM CHLORIDE 0.9% IV 500 ML 130 MEQ IVPB (11:05)
--- NOTE | 2025-02-08 14:00 | PCSTNOTE ---
Please refer to the Modified Barium Swallow Evaluation in the EMR. The patient is an 89 year old female admitted with multiple fractures following a mechanical fall. She is seen this date for a repeat modified barium swallow study (MBS) due to prior concerns for aspiration. The patient has a notable history of dementia and previous speech therapy services at her SNF. The patient was seen in a lateral viewed and was administered thin liquid barium (via tsp), mildly thick barium (via tsp and cup sip), and pudding mixed with barium paste. Oral stage: Oral preparation and transit were within functional limits across consistencies. Pharyngeal Stage: When presented 5cc/tsp thin liquid barium the patient was viewed to have laryngeal penetration due to decreased laryngeal elevation. In addition, larry penetration was viewed with cup trials of mildly thick liquid barium due to residual spilling from the pyriform sinus between swallows. The patient was viewed to have moderate residual in the valleculae for mildly thick liquid and pudding thick consistency due to reduced lingual pressure and reduced epiglottic inversion. Moderate residual in the pyriform sinus was also viewed for for mildly thick and pudding thick consistency due to cricopharyngeal dysfunction. The patient was able to clear a significant amount of residual in the valleculae and pyriform sinus but required two repeat effortful swallows for each tsp of material presented. Concerns noted for endurance and fatigue of swallows as trials continued placing patient at risk for additional penetration and/or aspiration. Recommend 1. Remain NPO 2. Therapeutic Trials with MERCHANDISE STOCKER only 2. Trials with MERCHANDISE STOCKER only to include: Puree/ level 4 and Mildly thick (by tsp only) / Level 2 These trials should alternate Puree and Mildly thick, Upright with trials, and 2 repeat effortful swallows for each tsp presentation puree or mildly thick. Following MERCHANDISE STOCKER exercises to include: Tongue Base Retraction, Effortful Swallow, Chin Tuck against resistance, Alecia or Tahmina as able
--- NOTE | 2025-02-08 15:07 | P.PNIM_ITS ---
Progress Note: A&P Assessment and Plan (1) Closed intertrochanteric fracture: Qualifiers: Encounter type: initial encounter Fracture alignment: displaced Laterality: right Qualified Code(s): S72.141A - Displaced intertrochanteric fracture of right femur, initial encounter for closed fracture Code(s): S72.143A - Displaced intertrochanteric fracture of unspecified femur, initial encounter for closed fracture Status: Acute (2) Closed olecranon fracture: Qualifiers: Encounter type: initial encounter Laterality: right Qualified Code(s): S52.021A - Displaced fracture of olecranon process without intraarticular extension of right ulna, initial encounter for closed fracture Code(s): S52.023A - Displaced fracture of olecranon process without intraarticular extension of unspecified ulna, initial encounter for closed fracture Status: Acute (3) Pneumonia: Qualifiers: Laterality: unspecified laterality Lung location: unspecified part of lung Pneumonia type: due to unspecified organism Qualified Code(s): J18.9 - Pneumonia, unspecified organism Code(s): J18.9 - Pneumonia, unspecified organism Status: Acute (4) Hypothyroidism: Qualifiers: Hypothyroidism type: postoperative Qualified Code(s): E89.0 - Postprocedural hypothyroidism Code(s): E03.9 - Hypothyroidism, unspecified Status: Acute (5) Fall from ground level: Code(s): W18.30XA - Fall on same level, unspecified, initial encounter Status: Acute Plan Patient ground level fall resulting in a right olecranon fracture and right hip intratrochanteric fracture. Left pubic rami chronic fractures. She has been placed on morphine as needed for pain. Vitale catheter has been placed due to immobility and is draining well. Orthopedic surgery has been consulted. Chest x-ray with patchy bilateral infiltrates. With leukocytosis. Treated as pneumonia. Blood culture no growth to date. Patient started on empiric antibiotics with Rocephin and doxycycline which will be continued. Flagyl was later added. Check procalcitonin Patient underwent or if both elbow right and right hip 02/04/2025. Postop course complicated with delirium. MRI brain negative for stroke overall. ABG 7.48/29/57/21 Dysphagia postoperative. failed swallow Speech therapy following. Since NPO Will start PPN as discussed with patient's family. Patient has history of thyroidectomy on levothyroxine DVT prophylaxis heparin subQ Dementia on Aricept at home Code status full code Subjective Date/time seen: 02/08/25 15:07 Interval history: Patient a bit more alert per family. Answering question. She had been NPO since almost a week now. Discussed with speech therapy. Underwent MBS today. Review of Systems Review of Systems: All systems reviewed & are unremarkable except as noted in HPI and below Exam Narrative: Elderly frail no acute distress somnolent easily wakes up Patient is comfortable, NAD HEENT: eyes are clear and none icteric LUNGS: Coarse breath sounds bilaterally no respiratory distress HEART: RR S1S2 ABD: BS+, Soft and nontender Lower extremities: no edema MS: right arm in wound dressing SKIN: nonjaundiced Neuro: grossly intact. Somnolent Objective Data Vital Signs Vital Signs: Vital Signs - 24 hr 02/07/25 16:00 02/07/25 20:00 02/07/25 20:00 Temperature Pulse Rate 110 H 108 H Respiratory Rate Blood Pressure Pulse Oximetry Oxygen Delivery Room Air 02/07/25 22:00 02/08/25 00:00 02/08/25 04:00 Temperature 98.3 F Pulse Rate 104 H 112 H 98 Respiratory Rate 17 Blood Pressure 135/61 Pulse Oximetry 98 Oxygen Delivery 02/08/25 05:19 02/08/25 08:00 02/08/25 08:00 Temperature 98 F Pulse Rate 102 H 102 H Respiratory Rate 18 Blood Pressure 156/68 H Pulse Oximetry 96 Oxygen Delivery Room Air 02/08/25 12:00 02/08/25 14:00 Temperature 98.1 F Pulse Rate 102 H 111 H Respiratory Rate 18 Blood Pressure 146/69 H Pulse Oximetry 96 Oxygen Delivery Intake/Output Intake/Output: Intake & Output 02/05/25 02/06/25 02/07/25 02/08/25 23:59 23:59 23:59 23:59 Intake Total 1650 2498.7 1300 Output Total 0620 401 4025 Balance -300 1573.7 75 Meds/Results Medications: Active Medications Generic Name Dose Route Start Last Admin Trade Name Freq PRN Reason Stop Dose Admin Acetaminophen 500 mg 02/05/25 15:58 Acetaminophen 500 Mg Tablet PO On Hold: 02/07/25 21:15 Q6H PRN Pain Rated 1-3 Acetaminophen 650 mg 02/07/25 21:18 Acetaminophen 650 Mg Suppository RECTAL Q6H PRN Mild Pain (1-3) or Fever Alteplase, Recombinant 2 mg 02/07/25 05:25 Alteplase 2 Mg Vial (Cathflo) IV PUSH ONCE PRN Line Occlusion Calcium Carbonate 500 mg 02/03/25 17:00 02/07/25 16:11 Calcium Carbonate (Oscal) 500 Mg Tablet PO Not Given DAILY@1700 [facility] Celecoxib 200 mg 02/06/25 08:00 02/08/25 09:40 Celecoxib 200 Mg Capsule PO Not Given DAILY@0800 [facility] [place] Diazepam 5 mg 02/05/25 15:58 Diazepam (*Crx) 5 Mg Tablet PO On Hold: 02/07/25 21:15 Q8H PRN Muscle Spasm Diazepam 2 mg 02/07/25 21:20 Diazepam Inj (*Crx) 10 Mg/2 Ml Syringe IV PUSH Q6HR PRN Muscle Spasticity Donepezil HCl 10 mg 02/03/25 09:00 02/08/25 09:40 Donepezil Hcl 10 Mg Tablet PO Not Given DAILY [facility] [place] Famotidine 20 mg 02/05/25 21:00 02/07/25 22:25 Famotidine 20 Mg Tablet PO Not Given On Hold: 02/07/25 21:17 Q12HR [facility] [place] Famotidine 20 mg 02/08/25 09:00 02/08/25 09:43 Famotidine 20 Mg/2 Ml Vial IV PUSH 20 mg Q12HR [facility] [place] Administration Folic Acid 0.4 mg 02/03/25 09:00 02/08/25 09:40 Folic Acid 0.4 Mg Tablet PO Not Given DAILY [facility] [place] Heparin Sodium (Porcine) 5,000 units 02/05/25 21:00 02/08/25 09:43 Heparin Sodium 5,000 Units/Ml Vial SUB-Q 5,000 units Q12HR [facility] [place] Administration Hydromorphone HCl 1 mg 02/05/25 15:58 02/07/25 01:43 Hydromorphone Hcl Inj (*Crx) 1 Mg/Ml Syr IV PUSH 1 mg Q2H PRN Administration Breakthrough Pain Rated 7-10 or NPO Hydromorphone HCl 0.5 mg 02/05/25 15:58 02/06/25 13:32 Hydromorphone Hcl Inj (*Crx) 1 Mg/Ml Syr IV PUSH 0.5 mg Q2H PRN Administration Breakthrough Pain Rated 4-6 or NPO Hydroxyzine Pamoate 50 mg 02/05/25 15:58 Hydroxyzine Pamoate 25 Mg Capsule PO On Hold: 02/07/25 21:17 Q4H PRN Itching Ibuprofen 800 mg in 200 mls @ 400 mls/hr 02/05/25 15:58 Caldolor 800 Mg/200 Ml IVPB Q6H PRN Breakthrough Pain Rated 1-3 or NPO Dextrose/Sodium Chloride 1,000 mls @ 80 mls/hr 02/05/25 15:58 02/08/25 09:39 Dextrose 5% Sodium Chloride 0.45% IV CONT Not Given .[id number] DELMI Metronidazole 500 mg in 100 mls @ 100 mls/hr 02/05/25 23:00 02/08/25 06:41 Flagyl 500 Mg/Iso Soln 100 Ml IVPB 100 mls/hr Q8H DELMI Administration Levothyroxine Sodium 56 mcg 02/05/25 06:30 02/08/25 06:42 Levothyroxine Sodium Inj 100 Mcg/5 Ml Vial IV PUSH 56 mcg DAILY@0630 [facility] Administration Multivitamins/Calcium 1 tablet 02/03/25 09:00 02/08/25 09:41 Therapeutic Multivitamins/Minerals Tab (*Bkc) PO Not Given DAILY [facility] Naloxone HCl 0.1 mg 02/05/25 15:58 Naloxone Hcl 0.4 Mg/Ml Vial IV PUSH Q2M PRN Opiate Reversal Methenamine 1 gm 02/03/25 09:00 02/08/25 09:41 Hippurate 1 Gram PO 03/05/25 08:59 Not Given Tablet Will Not Q12H DELMI Scan Ondansetron HCl 4 mg 02/05/25 15:58 Ondansetron Inj 4 Mg/2 Ml Vial IV PUSH Q4H PRN Nausea And Vomiting Oxycodone/Acetaminophen 1 tablet 02/05/25 15:58 Oxycodone/Acetaminophen (*Crx) 5-325 Mg Tablet PO On Hold: 02/07/25 21:16 Q4H PRN Pain Rated 4-6 Oxycodone/Acetaminophen 1 tab 02/05/25 15:58 Oxycodone/Acetaminophen (*Crx) 10-325 Mg Tablet PO On Hold: 02/07/25 21:16 Q6H PRN Pain Rated 7-10 Senna/Docusate Sodium 2 tab 02/05/25 17:00 02/08/25 09:40 Senna/Docusate Sodium Tablet PO Not Given BID [facility] [place] Simvastatin 20 mg 02/05/25 18:00 02/07/25 16:12 Simvastatin 20 Mg Tablet PO Not Given QPM [facility] [place] Timolol Maleate 1 drop 02/03/25 09:00 02/08/25 09:43 Timolol Maleate 0.5% Op Soln 5 Ml Bottle EACH EYE 1 drop DAILY [facility] [place] Administration Vitamin D 25 mcg 02/03/25 09:00 02/08/25 09:40 Cholecalciferol (Vitamin D3) 25 Mcg (1,000 Units) Tablet PO Not Given DAILY [facility] Vitamin E 1,000 unit 02/06/25 08:00 02/08/25 09:40 Vitamin E 1,000 Unit Capsule PO Not Given DAILY@0800 [facility] [place] Radiology Results: ITS Impressions Head CT 02/03/25 08:34 IMPRESSION: 1. Stable extensive nonspecific cerebral white matter disease, which likely represents chronic small vessel ischemic disease. Cervical Spine CT 02/03/25 09:31 IMPRESSION: 1. No acute fracture. 2. Severe cervical spondylosis. Intraoperative X-Ray 02/05/25 14:04 IMPRESSION: 1. Near-anatomic alignment post open reduction internal fixation of an intra- articular proximal right ulnar fracture. See procedure note for further detail. Chest X-Ray 02/05/25 15:00 Impression: CHF. Superimposed probable pneumonia. Left-sided line possibly within a left- sided SVC but exact location not clear. Correlation with CT is suggested Brain MRI 02/08/25 08:06 IMPRESSION: 1. Extensive nonspecific cerebral white matter disease, which likely represents chronic small vessel ischemic disease. 2. Note that some sequences were not performed due to patient noncompliance. Modified Barium Swallow 02/08/25 13:29 IMPRESSION: Pharyngeal dysphagia with laryngeal penetration without aspiration. Please correlate with speech pathologist findings and specific feeding recommendations. Labs Labs: Laboratory Results - last 24 hr 02/07/25 02/08/25 18:36 07:42 WBC 14.6 H RBC 2.73 L Hgb 8.0 L Hct 25.1 L MCV 91.9 MCH 29.3 MCHC 31.9 L RDW 17.4 H Plt Count 235 MPV 10.3 Sodium 139 Potassium 2.8 L* Chloride 110 H Carbon Dioxide 27 Anion Gap 2 L BUN 8 Creatinine 0.55 L Estim Creat Clear Calc 54 Estimated GFR > 60 Glucose 103 Calcium 7.6 L Magnesium 2.3 Urine Color Yellow Urine Appearance Clear Urine pH 6.0 Ur Specific [place] 1.006 Urine Protein Negative Urine Glucose (UA) Negative Urine Ketones Negative Ur Blood (Man) 1+ H Urine Nitrate Negative Urine Bilirubin Negative Urine Urobilinogen 0.2 Ur Leukocyte Esterase Negative Urine RBC 6-10 H Urine WBC 0-5 Ur Squamous Epith Cells None seen Urine Bacteria None seen Urine Casts 0-2
[2025-02-08 16:53] LABS: Hematocrit 25.2 % (37.0-47.0); Hemoglobin 7.9 g/dL (12.0-15.0); Immature Granulocyte Percent A 0.7 % (0-0.5); Lymphocytes Absolute Auto 0.98 K/mm3 (0.9-3.2); Mean Corpuscular HGB Conc 31.3 g/dl (32-36); Mean Corpuscular Hemoglobin 29.9 pg (26-34); Mean Corpuscular Volume 95.5 fl (80-100); Nucleated Red Blood Cells Absolute Auto 0.330 K/mm3 (0.0-0.012); Nucleated Red Blood Cells Perc 2.2 % (0.0-0.2); Platelet Count Result 257 k/mm3 (150-375); Red Blood Count 2.64 M/mm3 (4.2-5.4); White Blood Count 15.1 K/mm3 (4.5-10.0)
[2025-02-08] MEDS: FAT EMULSIONS IV 20% 250 ML 20.83 ML IVPB (17:05)
[2025-02-08] MEDS: AMINO ACIDS 4.25%/D5W/LYTES/CA 1,000 ML 50 ML IV CONT (17:05)
[2025-02-08 17:10] LABS: Alanine Aminotransferase 16 U/L (6-35); Albumin Level 2.2 g/dL (3.5-5.1); Alkaline Phosphatase 61 U/L (38-126); Anion Gap 3 mmol/L (4-12); Aspartate Amino Transferase 32 U/L (14-36); Bilirubin,Total 1.3 mg/dL (0.2-1.3); Blood Urea Nitrogen 9 mg/dL (7-17); Calcium 7.6 mg/dL (8.4-10.2); Carbon Dioxide 23 mmol/L (22-30); Chloride 112 mmol/L (98-107); Estimated CRCL calculation 61 ml/min; Estimated Glomerular Filt Rate > 60; Glucose 92 mg/dL (65-110); Magnesium 2.2 mg/dL (1.6-2.3); Potassium 3.8 mmol/L (3.4-5.0); Sodium 138 mmol/L (137-145); Total Protein 4.7 g/dL (6.3-8.2); Transferrin 141 mg/dL (206-381)
[2025-02-08] MEDS: cefTRIAXone 1 GM in SODIUM CHLORIDE 0.9% IV 50 ML 100 ML IVPB (17:20)
[2025-02-08 17:24] LABS: Procalcitonin 0.2 ng/mL
[2025-02-08 17:34] LABS: Partial Thromboplastin Time 27.2 Seconds (22.3-36.8)
[2025-02-08] MEDS: DOXYCYCLINE IV 100 MG in SODIUM CHLORIDE 0.9% IV 100 ML IVPB (17:59)
[2025-02-08] MEDS: IBUPROFEN IV 800 MG/200 ML 800 MG/200 ML BAG 400 MG IVPB (21:50)
[2025-02-09] VITALS (10 sets, daily range): BP systolic 150–173; BP diastolic 62–77; PULSE 99–119; RESP 16–22; TEMP 36.3–36.6; O2SAT 94–97
--- NOTE | 2025-02-09 02:00 | PC.NURSE ---
Pt placed on 2L O2 via NC. Notified Dr. Grant regarding this and pts hr 120. New order for chest xray in the a.m.
[2025-02-09] MEDS: DOXYCYCLINE IV 100 MG in SODIUM CHLORIDE 0.9% IV 100 ML IVPB ×2 (05:22→22:56)
[2025-02-09] MEDS: LEVOTHYROXINE SODIUM INJ 100 MCG/5 ML VIAL 56 MCG IV PUSH (06:18)
[2025-02-09] MEDS: metroNIDAZOLE 500 MG/ISO 100ML 500 MG/100 ML BAG 100 MG IVPB ×2 (06:18→20:50)
[2025-02-09 07:02] LABS: Anion Gap 5 mmol/L (4-12); Blood Urea Nitrogen 11 mg/dL (7-17); Calcium 7.7 mg/dL (8.4-10.2); Carbon Dioxide 25 mmol/L (22-30); Chloride 109 mmol/L (98-107); Estimated CRCL calculation 52 ml/min; Estimated Glomerular Filt Rate > 60; Glucose 110 mg/dL (65-110); Potassium 3.0 mmol/L (3.4-5.0); Sodium 139 mmol/L (137-145)
[2025-02-09] MEDS: DONEPEZIL HCL 10 MG TABLET PO (09:51)
[2025-02-09] MEDS: FAMOTIDINE 20 MG/2 ML VIAL IV PUSH ×2 (09:51→20:59)
[2025-02-09] MEDS: FUROSEMIDE INJ 40 MG/4 ML VIAL IV PUSH (09:51)
[2025-02-09] MEDS: TIMOLOL MALEATE 0.5% OP SOLN 5 ML BOTTLE 1 DROP EACH EYE (09:59)
--- NOTE | 2025-02-09 13:20 | PM.IMPN ---
Progress Note: A&P Assessment and Plan (1) Closed intertrochanteric fracture: Qualifiers: Encounter type: initial encounter Fracture alignment: displaced Laterality: right Qualified Code(s): S72.141A - Displaced intertrochanteric fracture of right femur, initial encounter for closed fracture Code(s): S72.143A - Displaced intertrochanteric fracture of unspecified femur, initial encounter for closed fracture Status: Acute (2) Closed olecranon fracture: Qualifiers: Encounter type: initial encounter Laterality: right Qualified Code(s): S52.021A - Displaced fracture of olecranon process without intraarticular extension of right ulna, initial encounter for closed fracture Code(s): S52.023A - Displaced fracture of olecranon process without intraarticular extension of unspecified ulna, initial encounter for closed fracture Status: Acute (3) Pneumonia: Qualifiers: Laterality: unspecified laterality Lung location: unspecified part of lung Pneumonia type: due to unspecified organism Qualified Code(s): J18.9 - Pneumonia, unspecified organism Code(s): J18.9 - Pneumonia, unspecified organism Status: Acute (4) Hypothyroidism: Qualifiers: Hypothyroidism type: postoperative Qualified Code(s): E89.0 - Postprocedural hypothyroidism Code(s): E03.9 - Hypothyroidism, unspecified Status: Acute (5) Fall from ground level: Code(s): W18.30XA - Fall on same level, unspecified, initial encounter Status: Acute Plan Patient ground level fall resulting in a right olecranon fracture and right hip intratrochanteric fracture. Left pubic rami chronic fractures. She has been placed on morphine as needed for pain. Vitale catheter has been placed due to immobility and is draining well. Orthopedic surgery has been consulted. Chest x-ray with patchy bilateral infiltrates. With leukocytosis. Treated as pneumonia. Blood culture no growth to date. Patient started on empiric antibiotics with Rocephin and doxycycline which will be continued. Flagyl was later added. Procalcitonin level was 0.2. Will resume Rocephin and doxycycline as ordered. Chest x-ray with worsening opacities likely indicating volume overload. Will give a dose of Lasix. Will also lower PPN as ordered Patient underwent or if both elbow right and right hip 02/04/2025. Postop course complicated with delirium. MRI brain negative for stroke overall. ABG 7.48/29/57/21 Dysphagia postoperative. failed swallow Speech therapy following. Since NPO started on TPN as discussed with the family. His more alert she will continue to work with speech therapy and likely will be able to start on oral feeds. 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 Answering questions. Her oxygen lowered and needed some oxygen supplementation via nasal cannula. Denies shortness of breath to me. No chest pain Review of Systems Review of Systems: All systems reviewed & are unremarkable except as noted in HPI and below Exam Narrative: Elderly frail no acute distress alert awake and oriented x3 Patient is comfortable, NAD HEENT: eyes are clear and none icteric LUNGS: Coarse breath sounds bilaterally no respiratory distress mildly tachypneic HEART: RR S1S2 ABD: BS+, Soft and nontender Lower extremities: no edema MS: right arm in wound dressing SKIN: nonjaundiced Neuro: grossly intact. Alert awake and oriented x3 Objective Data Vital Signs Vital Signs: Vital Signs - 24 hr 02/08/25 14:00 02/08/25 16:00 02/08/25 20:00 Temperature 98.1 F Pulse Rate 111 H 108 H Respiratory Rate 18 Blood Pressure 146/69 H Pulse Oximetry 96 Oxygen Delivery Room Air Fraction of Inspired Oxygen 02/08/25 20:00 02/08/25 22:00 02/09/25 00:00 Temperature 97.4 F L Pulse Rate 125 H 118 H 118 H Respiratory Rate 22 H Blood Pressure 162/70 H Pulse Oximetry 93 Oxygen Delivery Fraction of Inspired Oxygen 02/09/25 01:30 02/09/25 04:00 02/09/25 06:00 Temperature 98 F Pulse Rate 119 H 111 H 113 H Respiratory Rate 22 H 16 Blood Pressure 150/77 H 152/62 H Pulse Oximetry 97 97 Oxygen Delivery Fraction of Inspired Oxygen 02/09/25 08:00 02/09/25 08:00 02/09/25 12:00 Temperature Pulse Rate 113 H 114 H 99 Respiratory Rate 16 Blood Pressure Pulse Oximetry 97 Oxygen Delivery Room Air Fraction of Inspired Oxygen 28 Intake/Output Intake/Output: Intake & Output 10/02/07/25 02/08/25 02/09/25 23:59 23:59 23:59 23:59 Intake Total 2498.7 1300 400 Output Total 925 1225 425 Balance 1573.7 75 400 -425 Meds/Results Medications: Active Medications Generic Name Dose Route Start Last Admin Trade Name Freq PRN Reason Stop Dose Admin Acetaminophen 500 mg 02/05/25 15:58 Acetaminophen 500 Mg Tablet PO On Hold: 02/07/25 21:15 Q6H PRN Pain Rated 1-3 Acetaminophen 650 mg 02/07/25 21:18 Acetaminophen 650 Mg Suppository RECTAL Q6H PRN Mild Pain (1-3) or Fever Alteplase, Recombinant 2 mg 02/07/25 05:25 Alteplase 2 Mg Vial (Cathflo) IV PUSH ONCE PRN Line Occlusion Calcium Carbonate 500 mg 02/03/25 17:00 02/08/25 17:03 Calcium Carbonate (Oscal) 500 Mg Tablet PO Not Given DAILY@1700 [facility] Celecoxib 200 mg 02/06/25 08:00 02/09/25 10:09 Celecoxib 200 Mg Capsule PO Not Given DAILY@0800 [facility] Diazepam 5 mg 02/05/25 15:58 Diazepam (*Crx) 5 Mg Tablet PO On Hold: 02/07/25 21:15 Q8H PRN Muscle Spasm Diazepam 2 mg 02/07/25 21:20 Diazepam Inj (*Crx) 10 Mg/2 Ml Syringe IV PUSH Q6HR PRN Muscle Spasticity Donepezil HCl 10 mg 02/03/25 09:00 02/09/25 09:51 Donepezil Hcl 10 Mg Tablet PO 10 mg DAILY [facility] Administration Famotidine 20 mg 02/05/25 21:00 02/07/25 22:25 Famotidine 20 Mg Tablet PO Not Given On Hold: 02/07/25 21:17 Q12HR DELMI Famotidine 20 mg 02/08/25 09:00 02/09/25 09:51 Famotidine 20 Mg/2 Ml Vial IV PUSH 20 mg Q12HR DELMI Administration Folic Acid 0.4 mg 02/03/25 09:00 02/09/25 10:06 Folic Acid 0.4 Mg Tablet PO Not Given DAILY [facility] Heparin Sodium (Porcine) 5,000 units 02/05/25 21:00 02/09/25 09:51 Heparin Sodium 5,000 Units/Ml Vial SUB-Q 5,000 units Q12HR DELMI Administration Hydromorphone HCl 1 mg 02/05/25 15:58 02/07/25 01:43 Hydromorphone Hcl Inj (*Crx) 1 Mg/Ml Syr IV PUSH 1 mg Q2H PRN Administration Breakthrough Pain Rated 7-10 or NPO Hydromorphone HCl 0.5 mg 02/05/25 15:58 02/06/25 13:32 Hydromorphone Hcl Inj (*Crx) 1 Mg/Ml Syr IV PUSH 0.5 mg Q2H PRN Administration Breakthrough Pain Rated 4-6 or NPO Hydroxyzine Pamoate 50 mg 02/05/25 15:58 Hydroxyzine Pamoate 25 Mg Capsule PO On Hold: 02/07/25 21:17 Q4H PRN Itching Ibuprofen 800 mg in 200 mls @ 400 mls/hr 02/05/25 15:58 02/08/25 21:50 Caldolor 800 Mg/200 Ml IVPB 400 mls/hr Q6H PRN Administration Breakthrough Pain Rated 1-3 or NPO Metronidazole 500 mg in 100 mls @ 100 mls/hr 02/05/25 23:00 02/09/25 06:18 Flagyl 500 Mg/Iso Soln 100 Ml IVPB 100 mls/hr Q8H DELMI Administration Dextrose 1,000 mls @ 50 mls/hr 02/08/25 15:08 Dextrose 10% IV CONT .Q20H PRN if PN is interrupted Ceftriaxone Sodium 1 gm/ 50 mls @ 100 mls/hr 02/08/25 16:00 02/08/25 17:20 Sodium Chloride IVPB 100 mls/hr Q24H DELMI Administration Doxycycline Hyclate 100 mg/ 100 mls @ 100 mls/hr 02/08/25 18:00 02/09/25 05:22 Sodium Chloride IVPB 100 mls/hr Q12H DELMI Administration Dextrose 1,000 mls @ 50 mls/hr 02/08/25 15:24 Dextrose 10% IV CONT .Q20H PRN if PN is interrupted Amino Acids/Electrolytes/Dextrose 1,000 mls @ 30 mls/hr 02/08/25 16:00 02/08/25 17:05 Clinimix E 4.25%/5% Solution IV CONT 50 mls/hr .Q24H DELMI Administration Protocol Fat Emulsion Intravenous 250 mls @ 20.833 mls/hr 02/08/25 16:00 02/08/25 17:05 Lipids 20% IVPB 20.83 mls/hr Q24H DELMI Administration Potassium Phosphate 40 mmol/ 263.3333 mls @ 43.889 mls/hr 02/09/25 10:30 Sodium Chloride IVPB 02/09/25 16:29 ONCE ONE Levothyroxine Sodium 56 mcg 02/05/25 06:30 02/09/25 06:18 Levothyroxine Sodium Inj 100 Mcg/5 Ml Vial IV PUSH 56 mcg DAILY@0630 DELMI Administration Multivitamins/Calcium 1 tablet 02/03/25 09:00 02/09/25 10:07 Therapeutic Multivitamins/Minerals Tab (*Bkc) PO Not Given DAILY DELMI Naloxone HCl 0.1 mg 02/05/25 15:58 Naloxone Hcl 0.4 Mg/Ml Vial IV PUSH Q2M PRN Opiate Reversal Methenamine 1 gm 02/03/25 09:00 02/09/25 10:09 Hippurate 1 Gram PO 03/05/25 08:59 Not Given Tablet Will Not Q12H DELMI Scan Ondansetron HCl 4 mg 02/05/25 15:58 Ondansetron Inj 4 Mg/2 Ml Vial IV PUSH Q4H PRN Nausea And Vomiting Oxycodone/Acetaminophen 1 tablet 02/05/25 15:58 Oxycodone/Acetaminophen (*Crx) 5-325 Mg Tablet PO On Hold: 02/07/25 21:16 Q4H PRN Pain Rated 4-6 Oxycodone/Acetaminophen 1 tab 02/05/25 15:58 Oxycodone/Acetaminophen (*Crx) 10-325 Mg Tablet PO On Hold: 02/07/25 21:16 Q6H PRN Pain Rated 7-10 Senna/Docusate Sodium 2 tab 02/05/25 17:00 02/09/25 10:03 Senna/Docusate Sodium Tablet PO Not Given BID DELMI Simvastatin 20 mg 02/05/25 18:00 02/08/25 17:34 Simvastatin 20 Mg Tablet PO Not Given QPM DELMI Timolol Maleate 1 drop 02/03/25 09:00 02/09/25 09:59 Timolol Maleate 0.5% Op Soln 5 Ml Bottle EACH EYE 1 drop DAILY [facility] Administration Vitamin D 25 mcg 02/03/25 09:00 02/09/25 10:08 Cholecalciferol (Vitamin D3) 25 Mcg (1,000 Units) Tablet PO Not Given DAILY [facility] Vitamin E 1,000 unit 02/06/25 08:00 02/09/25 10:09 Vitamin E 1,000 Unit Capsule PO Not Given DAILY@0800 [facility] Radiology Results: ITS Impressions Head CT 02/03/25 08:34 IMPRESSION: 1. Stable extensive nonspecific cerebral white matter disease, which likely represents chronic small vessel ischemic disease. Cervical Spine CT 02/03/25 09:31 IMPRESSION: 1. No acute fracture. 2. Severe cervical spondylosis. Intraoperative X-Ray 02/05/25 14:04 IMPRESSION: 1. Near-anatomic alignment post open reduction internal fixation of an intra-articular proximal right ulnar fracture. See procedure note for further detail. Brain MRI 02/08/25 08:06 IMPRESSION: 1. Extensive nonspecific cerebral white matter disease, which likely represents chronic small vessel ischemic disease. 2. Note that some sequences were not performed due to patient noncompliance. Modified Barium Swallow 02/08/25 13:29 IMPRESSION: Pharyngeal dysphagia with laryngeal penetration without aspiration. Please correlate with speech pathologist findings and specific feeding recommendations. Chest X-Ray 02/09/25 09:31 IMPRESSION: 1. Worsening interstitial pulmonary edema and/or pneumonitis. 2. Persistent pleural effusions with bibasilar atelectasis and/or airspace disease. Labs Labs: Laboratory Results - last 24 hr 02/08/25 02/08/25 02/09/25 16:21 17:39 01:27 WBC 15.1 H RBC 2.64 L Hgb 7.9 L Hct 25.2 L MCV 95.5 MCH 29.9 MCHC 31.3 L RDW 17.4 H Plt Count 257 MPV 10.3 Immature Gran % (Auto) 0.7 H Neut % (Auto) 75.2 H Lymph % (Auto) 6.5 L [place] % (Auto) 10.9 H Eos % (Auto) 6.0 H Baso % (Auto) 0.7 Lymph # (Auto) 0.98 [place] # (Auto) 1.6 H Eos # (Auto) 0.9 H Baso # (Auto) 0.1 Abs Immat Gran (auto) 0.11 H Absolute Neuts (auto) 11.3 H Absolute Nucleated RBC 0.330 H Nucleated RBC % 2.2 H APTT 27.2 Sodium 138 Potassium 3.8 Chloride 112 H Carbon Dioxide 23 Anion Gap 3 L BUN 9 Creatinine 0.48 L Estim Creat Clear Calc 61 Estimated GFR > 60 Glucose 92 POC Capillary Glucose 108 H 112 H Calcium 7.6 L Phosphorus Magnesium 2.2 Transferrin 141 L Total Bilirubin 1.3 AST 32 ALT 16 Alkaline Phosphatase 61 Total Protein 4.7 L Albumin 2.2 L Procalcitonin 0.2 02/09/25 02/09/25 02/09/25 06:12 06:51 11:37 WBC RBC Hgb Hct MCV MCH MCHC RDW Plt Count MPV Immature Gran % (Auto) Neut % (Auto) Lymph % (Auto) [place] % (Auto) Eos % (Auto) Baso % (Auto) Lymph # (Auto) [place] # (Auto) Eos # (Auto) Baso # (Auto) Abs Immat Gran (auto) Absolute Neuts (auto) Absolute Nucleated RBC Nucleated RBC % APTT Sodium 139 Potassium 3.0 L Chloride 109 H Carbon Dioxide 25 Anion Gap 5 BUN 11 Creatinine 0.57 L Estim Creat Clear Calc 52 Estimated GFR > 60 Glucose 110 POC Capillary Glucose 120 H 148 H Calcium 7.7 L Phosphorus 2.4 L Magnesium Transferrin Total Bilirubin AST ALT Alkaline Phosphatase Total Protein Albumin Procalcitonin
[2025-02-09] MEDS: LIDOCAINE 1% PF INJ 5 ML VIAL INFILTRATE (15:30)
[2025-02-09] MEDS: POTASSIUM PHOS,M-BASIC-D-BASIC 40 MMOL in SODIUM CHLORIDE 0.9% IV 250 ML 43.89 MMOL IVPB (16:25)
[2025-02-09 16:53] LABS: Triglycerides 95 mg/dL (<150)
--- NOTE | 2025-02-09 17:16 | P.PNOP_ITS ---
Progress Note: A&P Assessment and Plan (1) Closed olecranon fracture: Qualifiers: Encounter type: subsequent encounter Laterality: right Fracture healing: with routine healing Qualified Code(s): S52.021D - Displaced fracture of olecranon process without intraarticular extension of right ulna, subsequent encounter for closed fracture with routine healing Code(s): S52.023A - Displaced fracture of olecranon process without intraarticular extension of unspecified ulna, initial encounter for closed fracture Status: Acute Assessment and Plan: POD #4: ORIF Right Elbow continued delirium today. Continue PT/OT As tolerated. NWB RUE. Forearm walker. Continue pain control. Ice Elbow. Protect skin. DVT prophylaxis with Heparin. Keep splint c/d/i. Dispo: SNF pending progress with PT/OT and medical stability (2) Closed intertrochanteric fracture: Qualifiers: Encounter type: subsequent encounter Fracture alignment: displaced Laterality: right Fracture healing: with routine healing Qualified Code(s): S72.141D - Displaced intertrochanteric fracture of right femur, subsequent encounter for closed fracture with routine healing Code(s): S72.143A - Displaced intertrochanteric fracture of unspecified femur, initial encounter for closed fracture Status: Acute Assessment and Plan: POD#4: TROCHANTERIC NAIL RIGHT HIP Continue PT/OT as tolerated. PWB. Walker. HIGH FALL RISK. Continue pain control. LIMIT NARCOTICS. Ice hip. Protect skin. DVT prophylaxis with Heparin SCDs. Incentive Spirometry Use reviewed. Monitor Dressing. Change prior to discharge. Bowel Regimen. Dispo: SNF pending progress with PT/OT and medical clearance Time Spent With Patient Time: failed swallowing study. Currently with parenteral nutrition. Will most likely be prolonged rehab. Will follow Subjective Subjective Date/Time Seen: 02/09/25 17:16 Post Op day: 4 Interval history: POD #4: ORIF Right Elbow Difficulty with confusion/pulling at IVs/[place] and dressing. Awake. Alert to place. Uncomfortable. swallowing study showed poor swallowing ability Exam Const: General: comfortable and no acute distress Extrem: Right upper extremity: elbow/forearm (splint c/d/i ), wrist (split c/d/i ) and Extremity exam: right hand normal to inspection and no swelling Right lower extremity: normal to inspection, normal capillary refill, hip/thigh Details: tenderness Location: of the hip (Thigh soft ) Location: laterally and anteriorly, swelling Location: at the hip, abnormal ROM (limited consistent with recent surgery ) Details: pain with active ROM during and pain with passive ROM during and other (Incision c/d/i. ); no deformity and no unusual warmth, knee Details: normal to inspection; no tenderness and no swelling, lower leg (Negative Travis's Sign ) Details: normal to inspection and no edema; no tenderness, ankle (+ankle dorsiflexion/plantarflexion) Details: normal to inspection and no edema; no tenderness, no swelling and no ecchymosis and foot Details: normal capillary refill, toes with normal ROM, vascular exam Details: dorsalis pedis pulse present and motor-sensory exam Details: light-touch normal; no tenderness Objective Data Vital Signs Vital Signs: Vital Signs - 24 hr 02/08/25 20:00 02/08/25 20:00 02/08/25 22:00 Temperature 97.4 F L Pulse Rate 125 H 118 H Respiratory Rate 22 H Blood Pressure 162/70 H Pulse Oximetry 93 Oxygen Delivery Room Air Fraction of Inspired Oxygen 02/09/25 00:00 02/09/25 01:30 02/09/25 04:00 Temperature Pulse Rate 118 H 119 H 111 H Respiratory Rate 22 H Blood Pressure 150/77 H Pulse Oximetry 97 Oxygen Delivery Fraction of Inspired Oxygen 02/09/25 06:00 02/09/25 08:00 02/09/25 08:00 Temperature 98 F Pulse Rate 113 H 113 H 114 H Respiratory Rate 16 16 Blood Pressure 152/62 H Pulse Oximetry 97 97 Oxygen Delivery Room Air Fraction of Inspired Oxygen 28 02/09/25 12:00 02/09/25 14:00 Temperature 97.4 F L Pulse Rate 99 109 H Respiratory Rate 17 Blood Pressure 150/72 H Pulse Oximetry 96 Oxygen Delivery Fraction of Inspired Oxygen Intake/Output Intake/Output: Intake & Output 02/06/25 02/07/25 02/08/25 02/09/25 23:59 23:59 23:59 23:59 Intake Total 2498.7 1300 400 Output Total 925 1225 425 Balance 1573.7 75 400 -425 Meds/Results Medications: Active Medications Generic Name Dose Route Start Last Admin Trade Name Freq PRN Reason Stop Dose Admin Acetaminophen 500 mg 02/05/25 15:58 Acetaminophen 500 Mg Tablet PO On Hold: 02/07/25 21:15 Q6H PRN Pain Rated 1-3 Acetaminophen 650 mg 02/07/25 21:18 Acetaminophen 650 Mg Suppository RECTAL Q6H PRN Mild Pain (1-3) or Fever Alteplase, Recombinant 2 mg 02/07/25 05:25 Alteplase 2 Mg Vial (Cathflo) IV PUSH ONCE PRN Line Occlusion Calcium Carbonate 500 mg 02/03/25 17:00 02/08/25 17:03 Calcium Carbonate (Oscal) 500 Mg Tablet PO Not Given DAILY@1700 [facility] Celecoxib 200 mg 02/06/25 08:00 02/09/25 10:09 Celecoxib 200 Mg Capsule PO Not Given DAILY@0800 [facility] Diazepam 5 mg 02/05/25 15:58 Diazepam (*Crx) 5 Mg Tablet PO On Hold: 02/07/25 21:15 Q8H PRN Muscle Spasm Diazepam 2 mg 02/07/25 21:20 Diazepam Inj (*Crx) 10 Mg/2 Ml Syringe IV PUSH Q6HR PRN Muscle Spasticity Donepezil HCl 10 mg 02/03/25 09:00 02/09/25 09:51 Donepezil Hcl 10 Mg Tablet PO 10 mg DAILY DELMI Administration Famotidine 20 mg 02/05/25 21:00 02/07/25 22:25 Famotidine 20 Mg Tablet PO Not Given On Hold: 02/07/25 21:17 Q12HR DELMI Famotidine 20 mg 02/08/25 09:00 02/09/25 09:51 Famotidine 20 Mg/2 Ml Vial IV PUSH 20 mg Q12HR DELMI Administration Folic Acid 0.4 mg 02/03/25 09:00 02/09/25 10:06 Folic Acid 0.4 Mg Tablet PO Not Given DAILY [facility] Heparin Sodium (Porcine) 5,000 units 02/05/25 21:00 02/09/25 09:51 Heparin Sodium 5,000 Units/Ml Vial SUB-Q 5,000 units Q12HR DELMI Administration Hydromorphone HCl 1 mg 02/05/25 15:58 02/07/25 01:43 Hydromorphone Hcl Inj (*Crx) 1 Mg/Ml Syr IV PUSH 1 mg Q2H PRN Administration Breakthrough Pain Rated 7-10 or NPO Hydromorphone HCl 0.5 mg 02/05/25 15:58 02/06/25 13:32 Hydromorphone Hcl Inj (*Crx) 1 Mg/Ml Syr IV PUSH 0.5 mg Q2H PRN Administration Breakthrough Pain Rated 4-6 or NPO Hydroxyzine Pamoate 50 mg 02/05/25 15:58 Hydroxyzine Pamoate 25 Mg Capsule PO On Hold: 02/07/25 21:17 Q4H PRN Itching Ibuprofen 800 mg in 200 mls @ 400 mls/hr 02/05/25 15:58 02/08/25 21:50 Caldolor 800 Mg/200 Ml IVPB 400 mls/hr Q6H PRN Administration Breakthrough Pain Rated 1-3 or NPO Metronidazole 500 mg in 100 mls @ 100 mls/hr 02/05/25 23:00 02/09/25 06:18 Flagyl 500 Mg/Iso Soln 100 Ml IVPB 100 mls/hr Q8H DELMI Administration Dextrose 1,000 mls @ 50 mls/hr 02/08/25 15:08 Dextrose 10% IV CONT .Q20H PRN if PN is interrupted Ceftriaxone Sodium 1 gm/ 50 mls @ 100 mls/hr 02/08/25 16:00 02/08/25 17:20 Sodium Chloride IVPB 100 mls/hr Q24H DELMI Administration Doxycycline Hyclate 100 mg/ 100 mls @ 100 mls/hr 02/08/25 18:00 02/09/25 05:22 Sodium Chloride IVPB 100 mls/hr Q12H DELMI Administration Dextrose 1,000 mls @ 50 mls/hr 02/08/25 15:24 Dextrose 10% IV CONT .Q20H PRN if PN is interrupted Amino Acids/Electrolytes/Dextrose 1,000 mls @ 30 mls/hr 02/08/25 16:00 02/08/25 17:05 Clinimix E 4.25%/5% Solution IV CONT 50 mls/hr .Q24H DELMI Administration Protocol Fat Emulsion Intravenous 250 mls @ 20.833 mls/hr 02/08/25 16:00 02/08/25 17:05 Lipids 20% IVPB 20.83 mls/hr Q24H DELMI Administration Levothyroxine Sodium 56 mcg 02/05/25 06:30 02/09/25 06:18 Levothyroxine Sodium Inj 100 Mcg/5 Ml Vial IV PUSH 56 mcg DAILY@0630 [facility] Administration Miscellaneous Information 1 each 02/09/25 00:01 Please Renew Amino Acid/Tpn. Per [employer] Procedure, It Will Discontinue If Not Renewed XX 03/11/25 00:00 CLARIFY DELMI Multivitamins/Calcium 1 tablet 02/03/25 09:00 02/09/25 10:07 Therapeutic Multivitamins/Minerals Tab (*Bkc) PO Not Given DAILY DELMI Naloxone HCl 0.1 mg 02/05/25 15:58 Naloxone Hcl 0.4 Mg/Ml Vial IV PUSH Q2M PRN Opiate Reversal Methenamine 1 gm 02/03/25 09:00 02/09/25 10:09 Hippurate 1 Gram PO 03/05/25 08:59 Not Given Tablet Will Not Q12H DELMI Scan Ondansetron HCl 4 mg 02/05/25 15:58 Ondansetron Inj 4 Mg/2 Ml Vial IV PUSH Q4H PRN Nausea And Vomiting Oxycodone/Acetaminophen 1 tablet 02/05/25 15:58 Oxycodone/Acetaminophen (*Crx) 5-325 Mg Tablet PO On Hold: 02/07/25 21:16 Q4H PRN Pain Rated 4-6 Oxycodone/Acetaminophen 1 tab 02/05/25 15:58 Oxycodone/Acetaminophen (*Crx) 10-325 Mg Tablet PO On Hold: 02/07/25 21:16 Q6H PRN Pain Rated 7-10 Senna/Docusate Sodium 2 tab 02/05/25 17:00 02/09/25 10:03 Senna/Docusate Sodium Tablet PO Not Given BID DELMI Simvastatin 20 mg 02/05/25 18:00 02/08/25 17:34 Simvastatin 20 Mg Tablet PO Not Given QPM DELMI Sodium Chloride 10 ml 02/09/25 22:00 Central Line Flush IV PUSH Q8HR DELMI Sodium Chloride 10 ml 02/09/25 16:23 Central Line Flush IV PUSH PRN PRN with TPN bag changes Sodium Chloride 20 ml 02/09/25 16:23 Central Line Flush IV PUSH PRN PRN after blood draws Timolol Maleate 1 drop 02/03/25 09:00 02/09/25 09:59 Timolol Maleate 0.5% Op Soln 5 Ml Bottle EACH EYE 1 drop DAILY DELMI Administration Vitamin D 25 mcg 02/03/25 09:00 02/09/25 10:08 Cholecalciferol (Vitamin D3) 25 Mcg (1,000 Units) Tablet PO Not Given DAILY [facility] Vitamin E 1,000 unit 02/06/25 08:00 02/09/25 10:09 Vitamin E 1,000 Unit Capsule PO Not Given DAILY@0800 [facility] Radiology Results: ITS Impressions Head CT 02/03/25 08:34 IMPRESSION: 1. Stable extensive nonspecific cerebral white matter disease, which likely represents chronic small vessel ischemic disease. Cervical Spine CT 02/03/25 09:31 IMPRESSION: 1. No acute fracture. 2. Severe cervical spondylosis. Intraoperative X-Ray 02/05/25 14:04 IMPRESSION: 1. Near-anatomic alignment post open reduction internal fixation of an intra- articular proximal right ulnar fracture. See procedure note for further detail. Brain MRI 02/08/25 08:06 IMPRESSION: 1. Extensive nonspecific cerebral white matter disease, which likely represents chronic small vessel ischemic disease. 2. Note that some sequences were not performed due to patient noncompliance. Modified Barium Swallow 02/08/25 13:29 IMPRESSION: Pharyngeal dysphagia with laryngeal penetration without aspiration. Please correlate with speech pathologist findings and specific feeding recommendations. Chest X-Ray 02/09/25 09:31 IMPRESSION: 1. Worsening interstitial pulmonary edema and/or pneumonitis. 2. Persistent pleural effusions with bibasilar atelectasis and/or airspace disease. Labs Labs: Laboratory Results - last 24 hr 02/08/25 02/08/25 02/09/25 16:21 17:39 01:27 WBC 15.1 H RBC 2.64 L Hgb 7.9 L Hct 25.2 L MCV 95.5 MCH 29.9 MCHC 31.3 L RDW 17.4 H Plt Count 257 MPV 10.3 Immature Gran % (Auto) 0.7 H Neut % (Auto) 75.2 H Lymph % (Auto) 6.5 L Major % (Auto) 10.9 H Eos % (Auto) 6.0 H Baso % (Auto) 0.7 Lymph # (Auto) 0.98 Major # (Auto) 1.6 H Eos # (Auto) 0.9 H Baso # (Auto) 0.1 Abs Immat Gran (auto) 0.11 H Absolute Neuts (auto) 11.3 H Absolute Nucleated RBC 0.330 H Nucleated RBC % 2.2 H APTT 27.2 Sodium Potassium Chloride Carbon Dioxide Anion Gap BUN Creatinine Estim Creat Clear Calc Estimated GFR Glucose POC Capillary Glucose 108 H 112 H Calcium Phosphorus Triglycerides Procalcitonin 0.2 02/09/25 02/09/25 02/09/25 06:12 06:51 11:37 WBC RBC Hgb Hct MCV MCH MCHC RDW Plt Count MPV Immature Gran % (Auto) Neut % (Auto) Lymph % (Auto) Major % (Auto) Eos % (Auto) Baso % (Auto) Lymph # (Auto) Major # (Auto) Eos # (Auto) Baso # (Auto) Abs Immat Gran (auto) Absolute Neuts (auto) Absolute Nucleated RBC Nucleated RBC % APTT Sodium 139 Potassium 3.0 L Chloride 109 H Carbon Dioxide 25 Anion Gap 5 BUN 11 Creatinine 0.57 L Estim Creat Clear Calc 52 Estimated GFR > 60 Glucose 110 POC Capillary Glucose 120 H 148 H Calcium 7.7 L Phosphorus 2.4 L Triglycerides Procalcitonin 02/09/25 16:39 WBC RBC Hgb Hct MCV MCH MCHC RDW Plt Count MPV Immature Gran % (Auto) Neut % (Auto) Lymph % (Auto) Major % (Auto) Eos % (Auto) Baso % (Auto) Lymph # (Auto) Major # (Auto) Eos # (Auto) Baso # (Auto) Abs Immat Gran (auto) Absolute Neuts (auto) Absolute Nucleated RBC Nucleated RBC % APTT Sodium Potassium Chloride Carbon Dioxide Anion Gap BUN Creatinine Estim Creat Clear Calc Estimated GFR Glucose POC Capillary Glucose Calcium Phosphorus Triglycerides 95 Procalcitonin
[2025-02-09] MEDS: AMINO ACIDS 4.25%/D5W/LYTES/CA 1,000 ML 50 ML IV CONT (19:32)
[2025-02-09] MEDS: FAT EMULSIONS IV 20% 250 ML 20.83 ML IVPB (20:50)
[2025-02-09] MEDS: ACETAMINOPHEN 650 MG SUPPOSITORY RECTAL (21:10)
[2025-02-09] MEDS: cefTRIAXone 1 GM in SODIUM CHLORIDE 0.9% IV 50 ML 100 ML IVPB (22:57)
[2025-02-09] MEDS: CENTRAL LINE FLUSH 10 ML IV PUSH (22:57)
[2025-02-10] VITALS (10 sets, daily range): BP systolic 156–178; BP diastolic 59–81; PULSE 89–119; RESP 16–20; TEMP 36.6; O2SAT 91–98
[2025-02-10] MEDS: metroNIDAZOLE 500 MG/ISO 100ML 500 MG/100 ML BAG 100 MG IVPB ×3 (01:09→14:42)
[2025-02-10 05:06] LABS: Hematocrit 25.1 % (37.0-47.0); Hemoglobin 9.2 g/dL (12.0-15.0); Immature Granulocyte Percent A 1.3 % (0-0.5); Lymphocytes Absolute Auto 1.13 K/mm3 (0.9-3.2); Mean Corpuscular HGB Conc 36.7 g/dl (32-36); Mean Corpuscular Hemoglobin 34.1 pg (26-34); Mean Corpuscular Volume 93.0 fl (80-100); Nucleated Red Blood Cells Absolute Auto 0.120 K/mm3 (0.0-0.012); Nucleated Red Blood Cells Perc 0.8 % (0.0-0.2); Platelet Count Result 348 k/mm3 (150-375); Red Blood Count 2.70 M/mm3 (4.2-5.4); White Blood Count 15.7 K/mm3 (4.5-10.0)
[2025-02-10] MEDS: CENTRAL LINE FLUSH 10 ML IV PUSH ×3 (06:07→21:27)
[2025-02-10] MEDS: LEVOTHYROXINE SODIUM INJ 100 MCG/5 ML VIAL 56 MCG IV PUSH (06:07)
[2025-02-10] MEDS: ACETAMINOPHEN 650 MG SUPPOSITORY RECTAL (06:20)
--- NOTE | 2025-02-10 06:41 | PC.NURSE ---
Unable to get a accurate BP on pt. Pt had ORIF on R arm & R leg, Pt has a PICC line in L arm. Tried taking BP on L thigh, pt not able to relax for accurate read.
[2025-02-10 06:53] LABS: Alanine Aminotransferase 20 U/L (6-35); Albumin Level 2.8 g/dL (3.5-5.1); Alkaline Phosphatase 67 U/L (38-126); Anion Gap 2 mmol/L (4-12); Aspartate Amino Transferase 50 U/L (14-36); Bilirubin,Total 1.5 mg/dL (0.2-1.3); Blood Urea Nitrogen 12 mg/dL (7-17); Calcium 7.8 mg/dL (8.4-10.2); Carbon Dioxide 31 mmol/L (22-30); Chloride 104 mmol/L (98-107); Estimated CRCL calculation 57 ml/min; Estimated Glomerular Filt Rate > 60; Glucose 110 mg/dL (65-110); Magnesium 2.1 mg/dL (1.6-2.3); Potassium 3.1 mmol/L (3.4-5.0); Sodium 137 mmol/L (137-145); Total Protein 5.8 g/dL (6.3-8.2)
[2025-02-10] MEDS: FAMOTIDINE 20 MG/2 ML VIAL IV PUSH ×2 (10:40→21:24)
[2025-02-10] MEDS: TIMOLOL MALEATE 0.5% OP SOLN 5 ML BOTTLE 1 DROP EACH EYE (10:41)
[2025-02-10] MEDS: DOXYCYCLINE IV 100 MG in SODIUM CHLORIDE 0.9% IV 100 ML IVPB (10:41)
[2025-02-10] MEDS: KCL 40 MEQ/WATER 100 ML 100 ML 25 ML IVPB (10:42)
--- NOTE | 2025-02-10 12:26 | P.PNIM_ITS ---
Progress Note: A&P Assessment and Plan (1) Closed intertrochanteric fracture: Qualifiers: Encounter type: subsequent encounter Fracture alignment: displaced Fracture healing: with routine healing Laterality: right Qualified Code(s): S72.141D - Displaced intertrochanteric fracture of right femur, subsequent encounter for closed fracture with routine healing Code(s): S72.143A - Displaced intertrochanteric fracture of unspecified femur, initial encounter for closed fracture Status: Acute (2) Closed olecranon fracture: Qualifiers: Encounter type: subsequent encounter Fracture healing: with routine healing Laterality: right Qualified Code(s): S52.021D - Displaced fracture of olecranon process without intraarticular extension of right ulna, subsequent encounter for closed fracture with routine healing Code(s): S52.023A - Displaced fracture of olecranon process without intraarticular extension of unspecified ulna, initial encounter for closed fracture Status: Acute (3) Pneumonia: Qualifiers: Laterality: unspecified laterality Lung location: unspecified part of lung Pneumonia type: due to unspecified organism Qualified Code(s): J18.9 - Pneumonia, unspecified organism Code(s): J18.9 - Pneumonia, unspecified organism Status: Acute (4) Hypothyroidism: Qualifiers: Hypothyroidism type: postoperative Qualified Code(s): E89.0 - Postprocedural hypothyroidism Code(s): E03.9 - Hypothyroidism, unspecified Status: Acute (5) Fall from ground level: Code(s): W18.30XA - Fall on same level, unspecified, initial encounter Status: Acute Plan Patient ground level fall resulting in a right olecranon fracture and right hip intratrochanteric fracture. Left pubic rami chronic fractures. She has been placed on morphine as needed for pain. Vitale catheter has been placed due to immobility and is draining well. Orthopedic surgery has been consulted. Chest x-ray with patchy bilateral infiltrates. With leukocytosis. Treated as pneumonia. Blood culture no growth to date. Patient started on empiric antibiotics with Rocephin and doxycycline which will be continued. Flagyl was later added. Procalcitonin level was 0.2. Will resume Rocephin and doxycycline as ordered. Chest x-ray with worsening opacities likely indicating volume overload. Will give a dose of Lasix. Will also lower PPN as ordered. Intermittent diuresis Patient underwent or if both elbow right and right hip 02/04/2025. Postop course complicated with delirium. MRI brain negative for stroke overall. ABG 7.48/29/57/21 Dysphagia postoperative. failed swallow Speech therapy following. Since NPO started on TPN as discussed with the family. His more alert she will continue to work with speech therapy and likely will be able to start on oral feeds. 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 Labs reviewed. Awake and alert. Still intermittently confused. Remains NPO. Review of Systems Review of Systems: All systems reviewed & are unremarkable except as noted in HPI and below Exam Narrative: Elderly frail no acute distress alert awake and oriented x3 Patient is comfortable, NAD HEENT: eyes are clear and none icteric LUNGS: Coarse breath sounds bilaterally no respiratory distress mildly tachypneic HEART: RR S1S2 ABD: BS+, Soft and nontender Lower extremities: no edema MS: right arm in wound dressing SKIN: nonjaundiced Neuro: grossly intact. Alert awake and oriented x3 Objective Data Vital Signs Vital Signs: Vital Signs - 24 hr 02/09/25 14:00 02/09/25 20:00 02/09/25 20:00 Temperature 97.4 F L Pulse Rate 109 H 119 H Respiratory Rate 17 Blood Pressure 150/72 H Pulse Oximetry 96 96 Oxygen Delivery Nasal Cannula Oxygen Flow Rate 2 Fraction of Inspired Oxygen 02/09/25 20:57 02/09/25 21:25 02/10/25 00:00 Temperature 97.5 F L Pulse Rate 110 H 117 H Respiratory Rate 20 Blood Pressure 173/67 H Pulse Oximetry 94 96 Oxygen Delivery Nasal Cannula Oxygen Flow Rate 1 Fraction of Inspired Oxygen 24 02/10/25 04:00 02/10/25 05:56 Temperature Pulse Rate 119 H 105 H Respiratory Rate 20 Blood Pressure 178/81 H Pulse Oximetry 94 Oxygen Delivery Oxygen Flow Rate Fraction of Inspired Oxygen Intake/Output Intake/Output: Intake & Output 02/07/25 02/08/25 02/09/25 02/10/25 23:59 23:59 23:59 23:59 Intake Total 6712 570 2095 100 Output Total 1225 850 Balance 75 400 700 100 Meds/Results Medications: Active Medications Generic Name Dose Route Start Last Admin Trade Name Freq PRN Reason Stop Dose Admin Acetaminophen 500 mg 02/05/25 15:58 Acetaminophen 500 Mg Tablet PO On Hold: 02/07/25 21:15 Q6H PRN Pain Rated 1-3 Acetaminophen 650 mg 02/07/25 21:18 02/10/25 06:20 Acetaminophen 650 Mg Suppository RECTAL 650 mg Q6H PRN Administration Mild Pain (1-3) or Fever Alteplase, Recombinant 2 mg 02/07/25 05:25 Alteplase 2 Mg Vial (Cathflo) IV PUSH ONCE PRN Line Occlusion Calcium Carbonate 500 mg 02/03/25 17:00 02/09/25 17:17 Calcium Carbonate (Oscal) 500 Mg Tablet PO Not Given DAILY@1700 [facility] Celecoxib 200 mg 02/06/25 08:00 02/09/25 10:09 Celecoxib 200 Mg Capsule PO Not Given DAILY@0800 [facility] Diazepam 5 mg 02/05/25 15:58 Diazepam (*Crx) 5 Mg Tablet PO On Hold: 02/07/25 21:15 Q8H PRN Muscle Spasm Diazepam 2 mg 02/07/25 21:20 Diazepam Inj (*Crx) 10 Mg/2 Ml Syringe IV PUSH Q6HR PRN Muscle Spasticity Donepezil HCl 10 mg 02/03/25 09:00 02/09/25 09:51 Donepezil Hcl 10 Mg Tablet PO 10 mg DAILY DELMI Administration Famotidine 20 mg 02/05/25 21:00 02/07/25 22:25 Famotidine 20 Mg Tablet PO Not Given On Hold: 02/07/25 21:17 Q12HR [facility] Famotidine 20 mg 02/08/25 09:00 02/10/25 10:40 Famotidine 20 Mg/2 Ml Vial IV PUSH 20 mg Q12HR DELMI Administration Folic Acid 0.4 mg 02/03/25 09:00 02/09/25 10:06 Folic Acid 0.4 Mg Tablet PO Not Given DAILY [facility] Heparin Sodium (Porcine) 5,000 units 02/05/25 21:00 02/10/25 10:41 Heparin Sodium 5,000 Units/Ml Vial SUB-Q 5,000 units Q12HR [facility] Administration Hydromorphone HCl 1 mg 02/05/25 15:58 02/07/25 01:43 Hydromorphone Hcl Inj (*Crx) 1 Mg/Ml Syr IV PUSH 1 mg Q2H PRN Administration Breakthrough Pain Rated 7-10 or NPO Hydromorphone HCl 0.5 mg 02/05/25 15:58 02/06/25 13:32 Hydromorphone Hcl Inj (*Crx) 1 Mg/Ml Syr IV PUSH 0.5 mg Q2H PRN Administration Breakthrough Pain Rated 4-6 or NPO Hydroxyzine Pamoate 50 mg 02/05/25 15:58 Hydroxyzine Pamoate 25 Mg Capsule PO On Hold: 02/07/25 21:17 Q4H PRN Itching Ibuprofen 800 mg in 200 mls @ 400 mls/hr 02/05/25 15:58 02/08/25 21:50 Caldolor 800 Mg/200 Ml IVPB 400 mls/hr Q6H PRN Administration Breakthrough Pain Rated 1-3 or NPO Metronidazole 500 mg in 100 mls @ 100 mls/hr 02/05/25 23:00 02/10/25 06:07 Flagyl 500 Mg/Iso Soln 100 Ml IVPB 100 mls/hr Q8H DELMI Administration Dextrose 1,000 mls @ 50 mls/hr 02/08/25 15:08 Dextrose 10% IV CONT .Q20H PRN if PN is interrupted Dextrose 1,000 mls @ 50 mls/hr 02/08/25 15:24 Dextrose 10% IV CONT .Q20H PRN if PN is interrupted Amino Acids/Electrolytes/Dextrose 1,000 mls @ 30 mls/hr 02/08/25 16:00 02/09/25 19:32 Clinimix E 4.25%/5% Solution IV CONT 50 mls/hr .Q24H DELMI Administration Protocol Fat Emulsion Intravenous 250 mls @ 20.833 mls/hr 02/08/25 16:00 02/09/25 20:50 Lipids 20% IVPB 20.83 mls/hr Q24H DELMI Administration Ceftriaxone Sodium 1 gm/ 50 mls @ 100 mls/hr 02/09/25 22:00 02/09/25 22:57 Sodium Chloride IVPB 100 mls/hr Q24H DELMI Administration Doxycycline Hyclate 100 mg/ 100 mls @ 100 mls/hr 02/09/25 22:00 02/10/25 10:41 Sodium Chloride IVPB 100 mls/hr Q12H DELMI Administration Potassium Chloride 100 mls @ 25 mls/hr 02/10/25 09:30 02/10/25 10:42 Kcl 40 Meq/Water 100 Ml IVPB 02/10/25 13:29 25 mls/hr ONCE ONE Administration Levothyroxine Sodium 56 mcg 02/05/25 06:30 02/10/25 06:07 Levothyroxine Sodium Inj 100 Mcg/5 Ml Vial IV PUSH 56 mcg DAILY@0630 DELMI Administration Miscellaneous Information 1 each 02/09/25 00:01 02/10/25 00:39 Please Renew Amino Acid/Tpn. Per [employer] Procedure, It Will Discontinue If Not Renewed XX 03/11/25 00:00 Not Given CLARIFY DELMI Multivitamins/Calcium 1 tablet 02/03/25 09:00 02/09/25 10:07 Therapeutic Multivitamins/Minerals Tab (*Bkc) PO Not Given DAILY DELMI Naloxone HCl 0.1 mg 02/05/25 15:58 Naloxone Hcl 0.4 Mg/Ml Vial IV PUSH Q2M PRN Opiate Reversal Methenamine 1 gm 02/03/25 09:00 02/09/25 21:15 Hippurate 1 Gram PO 03/05/25 08:59 Not Given Tablet Will Not Q12H DELMI Scan Ondansetron HCl 4 mg 02/05/25 15:58 Ondansetron Inj 4 Mg/2 Ml Vial IV PUSH Q4H PRN Nausea And Vomiting Oxycodone/Acetaminophen 1 tablet 02/05/25 15:58 Oxycodone/Acetaminophen (*Crx) 5-325 Mg Tablet PO On Hold: 02/07/25 21:16 Q4H PRN Pain Rated 4-6 Oxycodone/Acetaminophen 1 tab 02/05/25 15:58 Oxycodone/Acetaminophen (*Crx) 10-325 Mg Tablet PO On Hold: 02/07/25 21:16 Q6H PRN Pain Rated 7-10 Senna/Docusate Sodium 2 tab 02/05/25 17:00 02/09/25 17:17 Senna/Docusate Sodium Tablet PO Not Given BID DELMI Simvastatin 20 mg 02/05/25 18:00 02/09/25 17:17 Simvastatin 20 Mg Tablet PO Not Given QPM DELMI Sodium Chloride 10 ml 02/09/25 22:00 02/10/25 06:07 Central Line Flush IV PUSH 10 ml Q8HR DELMI Administration Sodium Chloride 10 ml 02/09/25 16:23 Central Line Flush IV PUSH PRN PRN with TPN bag changes Sodium Chloride 20 ml 02/09/25 16:23 Central Line Flush IV PUSH PRN PRN after blood draws Timolol Maleate 1 drop 02/03/25 09:00 02/10/25 10:41 Timolol Maleate 0.5% Op Soln 5 Ml Bottle EACH EYE 1 drop DAILY DELMI Administration Vitamin D 25 mcg 02/03/25 09:00 02/09/25 10:08 Cholecalciferol (Vitamin D3) 25 Mcg (1,000 Units) Tablet PO Not Given DAILY [facility] Vitamin E 1,000 unit 02/06/25 08:00 02/09/25 10:09 Vitamin E 1,000 Unit Capsule PO Not Given DAILY@0800 [facility] Radiology Results: ITS Impressions Head CT 02/03/25 08:34 IMPRESSION: 1. Stable extensive nonspecific cerebral white matter disease, which likely represents chronic small vessel ischemic disease. Cervical Spine CT 02/03/25 09:31 IMPRESSION: 1. No acute fracture. 2. Severe cervical spondylosis. Intraoperative X-Ray 02/05/25 14:04 IMPRESSION: 1. Near-anatomic alignment post open reduction internal fixation of an intra- articular proximal right ulnar fracture. See procedure note for further detail. Brain MRI 02/08/25 08:06 IMPRESSION: 1. Extensive nonspecific cerebral white matter disease, which likely represents chronic small vessel ischemic disease. 2. Note that some sequences were not performed due to patient noncompliance. Modified Barium Swallow 02/08/25 13:29 IMPRESSION: Pharyngeal dysphagia with laryngeal penetration without aspiration. Please correlate with speech pathologist findings and specific feeding recommendations. Chest X-Ray 02/09/25 09:31 IMPRESSION: 1. Worsening interstitial pulmonary edema and/or pneumonitis. 2. Persistent pleural effusions with bibasilar atelectasis and/or airspace disease. Labs Labs: Laboratory Results - last 24 hr 02/09/25 02/09/25 02/10/25 16:39 17:43 00:50 WBC RBC Hgb Hct MCV MCH MCHC RDW Plt Count MPV Immature Gran % (Auto) Neut % (Auto) Lymph % (Auto) [place] % (Auto) Eos % (Auto) Baso % (Auto) Lymph # (Auto) [place] # (Auto) Eos # (Auto) Baso # (Auto) Abs Immat Gran (auto) Absolute Neuts (auto) Absolute Nucleated RBC Nucleated RBC % Sodium Potassium Chloride Carbon Dioxide Anion Gap BUN Creatinine Estim Creat Clear Calc Estimated GFR Glucose POC Capillary Glucose 117 H 100 Calcium Phosphorus Magnesium Total Bilirubin AST ALT Alkaline Phosphatase Total Protein Albumin Triglycerides 95 02/10/25 02/10/25 02/10/25 04:59 06:05 11:40 WBC 15.7 H RBC 2.70 L Hgb 9.2 L Hct 25.1 L MCV 93.0 MCH 34.1 H D MCHC 36.7 H RDW 18.1 H Plt Count 348 MPV 10.3 Immature Gran % (Auto) 1.3 H Neut % (Auto) 77.3 H Lymph % (Auto) 7.2 L [place] % (Auto) 9.7 H Eos % (Auto) 3.9 Baso % (Auto) 0.6 Lymph # (Auto) 1.13 [place] # (Auto) 1.5 H Eos # (Auto) 0.6 H Baso # (Auto) 0.1 Abs Immat Gran (auto) 0.21 H Absolute Neuts (auto) 12.1 H Absolute Nucleated RBC 0.120 H Nucleated RBC % 0.8 H Sodium 137 Potassium 3.1 L Chloride 104 Carbon Dioxide 31 H Anion Gap 2 L BUN 12 Creatinine 0.51 L Estim Creat Clear Calc 57 Estimated GFR > 60 Glucose 110 POC Capillary Glucose 94 114 H Calcium 7.8 L Phosphorus 3.1 Magnesium 2.1 Total Bilirubin 1.5 H AST 50 H ALT 20 Alkaline Phosphatase 67 Total Protein 5.8 L Albumin 2.8 L Triglycerides
[2025-02-10] MEDS: FUROSEMIDE INJ 40 MG/4 ML VIAL IV PUSH (14:42)
[2025-02-10] MEDS: IBUPROFEN IV 800 MG/200 ML 800 MG/200 ML BAG 400 MG IVPB (15:42)
[2025-02-10] MEDS: FAT EMULSIONS IV 20% 250 ML 20.83 ML IVPB (15:43)
[2025-02-10] MEDS: AMINO ACIDS 4.25%/D5W/LYTES/CA 1,000 ML 50 ML IV CONT (15:44)
[2025-02-10] MEDS: cefTRIAXone 1 GM in SODIUM CHLORIDE 0.9% IV 50 ML 100 ML IVPB (21:24)
--- NOTE | 2025-02-10 21:42 | PC.NURSE ---
pt noted to have picc line out of left arm. pot poulled it out catherer intact no bleeding dry dressing applied. notified.
[2025-02-11] VITALS (9 sets, daily range): BP systolic 124–153; BP diastolic 52–61; PULSE 92–123; RESP 15–19; TEMP 35.9–36.4; O2SAT 95–97
[2025-02-11 06:24] LABS: Hematocrit 33.7 % (37.0-47.0); Hemoglobin 10.6 g/dL (12.0-15.0); Immature Granulocyte Percent A 1.1 % (0-0.5); Lymphocytes Absolute Auto 1.98 K/mm3 (0.9-3.2); Mean Corpuscular HGB Conc 31.5 g/dl (32-36); Mean Corpuscular Hemoglobin 29.4 pg (26-34); Mean Corpuscular Volume 93.6 fl (80-100); Nucleated Red Blood Cells Absolute Auto 0.110 K/mm3 (0.0-0.012); Nucleated Red Blood Cells Perc 0.5 % (0.0-0.2); Platelet Count Result 411 k/mm3 (150-375); Red Blood Count 3.60 M/mm3 (4.2-5.4); White Blood Count 21.1 K/mm3 (4.5-10.0)
[2025-02-11 06:40] LABS: INR 1.1; Prothrombin Time 13.7 Seconds (11.1-14.7)
[2025-02-11 06:41] LABS: Partial Thromboplastin Time 30.5 Seconds (22.3-36.8)
--- NOTE | 2025-02-11 09:55 | PCSTNOTE ---
Please refer to the Modified Barium Swallow Evaluation in the EMR. The patient is an 89 year old female admitted with multiple fractures following a mechanical fall. She is seen this date for a repeat modified barium swallow study (MBS) due to prior concerns for aspiration. The patient has a notable history of dementia and previous speech therapy services at her [facility]. The patient was seen in a lateral viewed and was administered thin liquid barium (via tsp), mildly thick barium (via tsp and cup sip), and pudding mixed with barium paste. Oral stage: Oral preparation demonstrated some decreased lingual control with premature spillage to the level of the pyriform sinus with mildly thick and pudding consistency. Pharyngeal Stage: When presented 5cc/tsp thin and 5cc mildly thick liquid barium the patient was viewed to have laryngeal penetration due to decreased laryngeal elevation. The patient was viewed to have moderate residual in the valleculae for mildly thick liquid and pudding thick consistency due to reduced lingual pressure and reduced epiglottic inversion. Severe residual in the pyriform sinus was also viewed for for mildly thick and pudding thick consistency due to cricopharyngeal dysfunction. As well as coating on the pharyngeal wall for mildly thick and pudding consistency due to reduced pharyngeal contraction. The patient was able to clear a significant amount of residual in the valleculae and pyriform sinus but required two repeat effortful swallows for each tsp of material presented. Concerns noted for endurance and fatigue of swallows as trials continued placing patient at risk for additional penetration and/or aspiration. Suspect due to significance of valleculae and pyriform sinus patient at high risk for aspiration/penetration of all consistencies. Recommend 1. Remain NPO and consider alternate means of nutrition. 2. Therapeutic Trials with GLASS SCULLION only 2. Trials with GLASS SCULLION only to include: Moderately thick (by tsp only) / Level 3. Upright with trials, and 2 repeat effortful swallows for each tsp presentation moderately thick. Following exercises to include: Tongue Base Retraction, Effortful Swallow, Chin Tuck against resistance, Alecia or Tahmina if able
[2025-02-11 10:49] LABS: Alanine Aminotransferase 23 U/L (6-35); Albumin Level 3.4 g/dL (3.5-5.1); Alkaline Phosphatase 90 U/L (38-126); Anion Gap 7 mmol/L (4-12); Aspartate Amino Transferase 41 U/L (14-36); Bilirubin,Total 2.1 mg/dL (0.2-1.3); Blood Urea Nitrogen 17 mg/dL (7-17); Calcium 8.9 mg/dL (8.4-10.2); Carbon Dioxide 30 mmol/L (22-30); Chloride 101 mmol/L (98-107); Estimated CRCL calculation 51 ml/min; Estimated Glomerular Filt Rate > 60; Glucose 90 mg/dL (65-110); Magnesium 2.0 mg/dL (1.6-2.3); Potassium 3.9 mmol/L (3.4-5.0); Sodium 138 mmol/L (137-145); Total Protein 6.5 g/dL (6.3-8.2)
[2025-02-11 10:59] LABS: Transferrin 191 mg/dL (206-381)
--- NOTE | 2025-02-11 11:32 | PCNFU ---
Nutrition Follow-Up Complete: Inadequate energy intake related to swallowing difficulty as evidenced by failed repeat MBS and NPO day 5 Goal:Meet estimated nutrition needs Pt not meeting goal Pt current nutrition is NPO, no nutrition support at this time. Nutrition recommendation: resume PPN when able to, consider PEG placement for nutrition if necessary, or consider comfort measures at this time Last recorded weight is 67.4 kg. Bowel Motility: +BM 02/10 Labs Reviewed: Hgb:10.6, HCT:33.7, Cr:0.58 Meds Noted: MVI, vit D, Vit D, folic acid Skin: WNL Additional Notes: Pt remains NPO per speech recommendations, was on PPN. Pt ripped out PICC line today so she currently has no IV access for meds or nutrition. Nursing trying to reach hospitalist to determine how to proceed. Currently not meeting nutrition needs. Monitoring labs, weights, meds, swallowing ability, PPN tolerance, plan of care Follow up Tuesday and Tuesday
--- NOTE | 2025-02-11 11:55 | PM.PNORT ---
Progress Note: A&P Assessment and Plan (1) Closed olecranon fracture: Qualifiers: Encounter type: subsequent encounter Fracture healing: with routine healing Laterality: right Qualified Code(s): S52.021D - Displaced fracture of olecranon process without intraarticular extension of right ulna, subsequent encounter for closed fracture with routine healing Code(s): S52.023A - Displaced fracture of olecranon process without intraarticular extension of unspecified ulna, initial encounter for closed fracture Status: Acute Assessment and Plan: POD #6: ORIF Right Elbow Continued delirium today. Continue PT/OT As tolerated. NWB RUE. Forearm walker. Continue pain control. Ice Elbow. Protect skin. DVT prophylaxis with Heparin. Keep splint c/d/i. Dispo: SNF pending progress with PT/OT and medical stability (2) Closed intertrochanteric fracture: Qualifiers: Encounter type: subsequent encounter Fracture alignment: displaced Fracture healing: with routine healing Laterality: right Qualified Code(s): S72.141D - Displaced intertrochanteric fracture of right femur, subsequent encounter for closed fracture with routine healing Code(s): S72.143A - Displaced intertrochanteric fracture of unspecified femur, initial encounter for closed fracture Status: Acute Assessment and Plan: POD#6: TROCHANTERIC NAIL RIGHT HIP Continue PT/OT as tolerated. PWB. Walker. HIGH FALL RISK. Continue pain control. LIMIT NARCOTICS. Ice hip. Protect skin. DVT prophylaxis with Heparin SCDs. Incentive Spirometry Use reviewed. Monitor Dressing. Change prior to discharge. Bowel Regimen. Dispo: SNF pending progress with PT/OT and medical clearance Plan Reviewed history, exam, radiographs and current labs with attending MD and covering surgeon, Dr. Jama, who agrees with current plan as indicated above. No further recommendations from Dr. Jama at this time. Time Spent With Patient Time: failed swallowing study. Currently with parenteral nutrition. Will most likely be prolonged rehab. Will follow Subjective Subjective Date/Time Seen: 02/11/25 11:55 Interval history: POD #6: ORIF Right Elbow Difficulty with confusion/pulling at IVs/[place] and dressing. Awake. Alert to place. Disoriented to year/situation. Uncomfortable. Swallowing study showed poor swallowing ability. Mouth dry/cracking/flaking. Tongue dry. Review of Systems Review of Systems: ROS unobtainable: Yes unobtainable due to mental status Exam Const: General: comfortable and no acute distress Extrem: Right upper extremity: elbow/forearm (splint c/d/i ), wrist (split c/d/i ) and Extremity exam: right hand normal to inspection and no swelling Right lower extremity: normal to inspection, normal capillary refill, hip/thigh Details: tenderness Location: of the hip (Thigh soft ) Location: laterally and anteriorly, swelling Location: at the hip, abnormal ROM (limited consistent with recent surgery ) Details: pain with active ROM during and pain with passive ROM during and other (Incision c/d/i. ); no deformity and no unusual warmth, knee Details: normal to inspection; no tenderness and no swelling, lower leg (Negative Travis's Sign ) Details: normal to inspection and no edema; no tenderness, ankle (+ankle dorsiflexion/plantarflexion) Details: normal to inspection and no edema; no tenderness, no swelling and no ecchymosis and foot Details: normal capillary refill, toes with normal ROM, vascular exam Details: dorsalis pedis pulse present and motor-sensory exam Details: light-touch normal; no tenderness Objective Data Vital Signs Vital Signs: Vital Signs - 24 hr 02/10/25 12:00 02/10/25 13:17 02/10/25 14:00 Temperature 36.6 C Pulse Rate 89 89 Respiratory Rate 18 Blood Pressure 158/59 H Pulse Oximetry 91 98 Oxygen Delivery Room Air 02/10/25 16:00 02/10/25 20:38 02/11/25 00:00 Temperature 36.6 C Pulse Rate 97 100 95 Respiratory Rate 16 Blood Pressure 156/80 H Pulse Oximetry 98 Oxygen Delivery 02/11/25 04:00 02/11/25 06:00 02/11/25 09:40 Temperature 36.3 C L Pulse Rate 93 94 Respiratory Rate 16 Blood Pressure 153/61 H Pulse Oximetry 97 Oxygen Delivery Room Air Intake/Output Intake/Output: Intake & Output 02/08/25 02/09/25 02/10/25 02/11/25 23:59 23:59 23:59 23:59 Intake Total 600 1600 1450 Output Total 850 Balance [id number] Meds/Results Medications: Active Medications Generic Name Dose Route Start Last Admin Trade Name Freq PRN Reason Stop Dose Admin Acetaminophen 500 mg 02/05/25 15:58 Acetaminophen 500 Mg Tablet PO On Hold: 02/07/25 21:15 Q6H PRN Pain Rated 1-3 Acetaminophen 650 mg 02/07/25 21:18 02/10/25 06:20 Acetaminophen 650 Mg Suppository RECTAL 650 mg Q6H PRN Administration Mild Pain (1-3) or Fever Alteplase, Recombinant 2 mg 02/07/25 05:25 Alteplase 2 Mg Vial (Cathflo) IV PUSH ONCE PRN Line Occlusion Calcium Carbonate 500 mg 02/03/25 17:00 02/10/25 17:55 Calcium Carbonate (Oscal) 500 Mg Tablet PO Not Given DAILY@1700 [facility] Celecoxib 200 mg 02/06/25 08:00 02/10/25 14:41 Celecoxib 200 Mg Capsule PO Not Given DAILY@0800 [facility] Diazepam 5 mg 02/05/25 15:58 Diazepam (*Crx) 5 Mg Tablet PO On Hold: 02/07/25 21:15 Q8H PRN Muscle Spasm Diazepam 2 mg 02/07/25 21:20 Diazepam Inj (*Crx) 10 Mg/2 Ml Syringe IV PUSH Q6HR PRN Muscle Spasticity Donepezil HCl 10 mg 02/03/25 09:00 02/10/25 14:41 Donepezil Hcl 10 Mg Tablet PO Not Given DAILY [facility] Famotidine 20 mg 02/05/25 21:00 02/07/25 22:25 Famotidine 20 Mg Tablet PO Not Given On Hold: 02/07/25 21:17 Q12HR [facility] Famotidine 20 mg 02/08/25 09:00 02/10/25 21:24 Famotidine 20 Mg/2 Ml Vial IV PUSH 20 mg Q12HR [facility] Administration Folic Acid 0.4 mg 02/03/25 09:00 02/10/25 14:41 Folic Acid 0.4 Mg Tablet PO Not Given DAILY [facility] Heparin Sodium (Porcine) 5,000 units 02/05/25 21:00 02/10/25 21:24 Heparin Sodium 5,000 Units/Ml Vial SUB-Q 5,000 units Q12HR DELMI Administration Hydromorphone HCl 1 mg 02/05/25 15:58 02/07/25 01:43 Hydromorphone Hcl Inj (*Crx) 1 Mg/Ml Syr IV PUSH 1 mg Q2H PRN Administration Breakthrough Pain Rated 7-10 or NPO Hydromorphone HCl 0.5 mg 02/05/25 15:58 02/06/25 13:32 Hydromorphone Hcl Inj (*Crx) 1 Mg/Ml Syr IV PUSH 0.5 mg Q2H PRN Administration Breakthrough Pain Rated 4-6 or NPO Hydroxyzine Pamoate 50 mg 02/05/25 15:58 Hydroxyzine Pamoate 25 Mg Capsule PO On Hold: 02/07/25 21:17 Q4H PRN Itching Ibuprofen 800 mg in 200 mls @ 400 mls/hr 02/05/25 15:58 02/10/25 15:42 Caldolor 800 Mg/200 Ml IVPB 400 mls/hr Q6H PRN Administration Breakthrough Pain Rated 1-3 or NPO Metronidazole 500 mg in 100 mls @ 100 mls/hr 02/05/25 23:00 02/11/25 05:21 Flagyl 500 Mg/Iso Soln 100 Ml IVPB Not Given Q8H DELMI Dextrose 1,000 mls @ 50 mls/hr 02/08/25 15:08 Dextrose 10% IV CONT .Q20H PRN if PN is interrupted Dextrose 1,000 mls @ 50 mls/hr 02/08/25 15:24 Dextrose 10% IV CONT .Q20H PRN if PN is interrupted Amino Acids/Electrolytes/Dextrose 1,000 mls @ 30 mls/hr 02/08/25 16:00 02/10/25 15:44 Clinimix E 4.25%/5% Solution IV CONT 50 mls/hr .Q24H DELMI Administration Protocol Fat Emulsion Intravenous 250 mls @ 20.833 mls/hr 02/08/25 16:00 02/10/25 15:43 Lipids 20% IVPB 20.83 mls/hr Q24H DELMI Administration Ceftriaxone Sodium 1 gm/ 50 mls @ 100 mls/hr 02/09/25 22:00 02/10/25 21:24 Sodium Chloride IVPB 100 mls/hr Q24H DELMI Administration Doxycycline Hyclate 100 mg/ 100 mls @ 100 mls/hr 02/09/25 22:00 02/10/25 21:36 Sodium Chloride IVPB Not Given Q12H DELMI Levothyroxine Sodium 56 mcg 02/05/25 06:30 02/11/25 05:21 Levothyroxine Sodium Inj 100 Mcg/5 Ml Vial IV PUSH Not Given DAILY@0630 [facility] Miscellaneous Information 1 each 02/09/25 00:01 02/11/25 01:38 Please Renew Amino Acid/Tpn. Per [employer] Procedure, It Will Discontinue If Not Renewed XX 03/11/25 00:00 Not Given CLARIFY DELMI Multivitamins/Calcium 1 tablet 02/03/25 09:00 02/10/25 14:41 Therapeutic Multivitamins/Minerals Tab (*Bkc) PO Not Given DAILY DELMI Naloxone HCl 0.1 mg 02/05/25 15:58 Naloxone Hcl 0.4 Mg/Ml Vial IV PUSH Q2M PRN Opiate Reversal Methenamine 1 gm 02/03/25 09:00 02/10/25 21:24 Hippurate 1 Gram PO 03/05/25 08:59 Not Given Tablet Will Not Q12H DELMI Scan Ondansetron HCl 4 mg 02/05/25 15:58 Ondansetron Inj 4 Mg/2 Ml Vial IV PUSH Q4H PRN Nausea And Vomiting Oxycodone/Acetaminophen 1 tablet 02/05/25 15:58 Oxycodone/Acetaminophen (*Crx) 5-325 Mg Tablet PO On Hold: 02/07/25 21:16 Q4H PRN Pain Rated 4-6 Oxycodone/Acetaminophen 1 tab 02/05/25 15:58 Oxycodone/Acetaminophen (*Crx) 10-325 Mg Tablet PO On Hold: 02/07/25 21:16 Q6H PRN Pain Rated 7-10 Senna/Docusate Sodium 2 tab 02/05/25 17:00 02/10/25 17:55 Senna/Docusate Sodium Tablet PO Not Given BID DELMI Simvastatin 20 mg 02/05/25 18:00 02/10/25 17:55 Simvastatin 20 Mg Tablet PO Not Given QPM DELMI Sodium Chloride 10 ml 02/09/25 22:00 02/11/25 05:20 Central Line Flush IV PUSH Not Given Q8HR DELMI Sodium Chloride 10 ml 02/09/25 16:23 Central Line Flush IV PUSH PRN PRN with TPN bag changes Sodium Chloride 20 ml 02/09/25 16:23 Central Line Flush IV PUSH PRN PRN after blood draws Timolol Maleate 1 drop 02/03/25 09:00 02/10/25 10:41 Timolol Maleate 0.5% Op Soln 5 Ml Bottle EACH EYE 1 drop DAILY [facility] Administration Vitamin D 25 mcg 02/03/25 09:00 02/10/25 14:41 Cholecalciferol (Vitamin D3) 25 Mcg (1,000 Units) Tablet PO Not Given DAILY [facility] Vitamin E 1,000 unit 02/06/25 08:00 02/10/25 14:41 Vitamin E 1,000 Unit Capsule PO Not Given DAILY@0800 [facility] Radiology Results: ITS Impressions Head CT 02/03/25 08:34 IMPRESSION: 1. Stable extensive nonspecific cerebral white matter disease, which likely represents chronic small vessel ischemic disease. Cervical Spine CT 02/03/25 09:31 IMPRESSION: 1. No acute fracture. 2. Severe cervical spondylosis. Intraoperative X-Ray 02/05/25 14:04 IMPRESSION: 1. Near-anatomic alignment post open reduction internal fixation of an intra-articular proximal right ulnar fracture. See procedure note for further detail. Brain MRI 02/08/25 08:06 IMPRESSION: 1. Extensive nonspecific cerebral white matter disease, which likely represents chronic small vessel ischemic disease. 2. Note that some sequences were not performed due to patient noncompliance. Chest X-Ray 02/10/25 14:03 Impression: Probable CHF. Superimposed pneumonia suspected. The findings appear slightly improved compared to the previous exam Modified Barium Swallow 02/11/25 09:28 IMPRESSION: Pharyngeal dysphagia with significant residue and laryngeal penetration without aspiration. Please correlate with speech pathologist findings and specific feeding recommendations. Labs Labs: Laboratory Results - last 24 hr 02/11/25 02/11/25 02/11/25 00:05 06:07 06:11 WBC 21.1 H RBC 3.60 L Hgb 10.6 L Hct 33.7 L MCV 93.6 MCH 29.4 D MCHC 31.5 L RDW 18.8 H Plt Count 411 H MPV 10.3 Immature Gran % (Auto) 1.1 H Neut % (Auto) 73.8 H Lymph % (Auto) 9.4 L [place] % (Auto) 8.5 Eos % (Auto) 6.5 H Baso % (Auto) 0.7 Lymph # (Auto) 1.98 [place] # (Auto) 1.8 H Eos # (Auto) 1.4 H Baso # (Auto) 0.1 Abs Immat Gran (auto) 0.23 H Absolute Neuts (auto) 15.6 H Absolute Nucleated RBC 0.110 H Nucleated RBC % 0.5 H PT 13.7 INR 1.1 APTT 30.5 Sodium 138 Potassium 3.9 Chloride 101 Carbon Dioxide 30 Anion Gap 7 BUN 17 Creatinine 0.58 L Estim Creat Clear Calc 51 Estimated GFR > 60 Glucose 90 POC Capillary Glucose 100 96 Calcium 8.9 Phosphorus 3.3 Magnesium 2.0 Transferrin 191 L Total Bilirubin 2.1 H AST 41 H ALT 23 Alkaline Phosphatase 90 Total Protein 6.5 Albumin 3.4 L 02/11/25 11:44 WBC RBC Hgb Hct MCV MCH MCHC RDW Plt Count MPV Immature Gran % (Auto) Neut % (Auto) Lymph % (Auto) [place] % (Auto) Eos % (Auto) Baso % (Auto) Lymph # (Auto) [place] # (Auto) Eos # (Auto) Baso # (Auto) Abs Immat Gran (auto) Absolute Neuts (auto) Absolute Nucleated RBC Nucleated RBC % PT INR APTT Sodium Potassium Chloride Carbon Dioxide Anion Gap BUN Creatinine Estim Creat Clear Calc Estimated GFR Glucose POC Capillary Glucose 107 H Calcium Phosphorus Magnesium Transferrin Total Bilirubin AST ALT Alkaline Phosphatase Total Protein Albumin
[2025-02-11] MEDS: TIMOLOL MALEATE 0.5% OP SOLN 5 ML BOTTLE 1 DROP EACH EYE (15:06)
--- NOTE | 2025-02-11 16:14 | PM.IMPN ---
Progress Note: A&P Assessment and Plan (1) Closed intertrochanteric fracture: Qualifiers: Encounter type: subsequent encounter Fracture alignment: displaced Fracture healing: with routine healing Laterality: right Qualified Code(s): S72.141D - Displaced intertrochanteric fracture of right femur, subsequent encounter for closed fracture with routine healing Code(s): S72.143A - Displaced intertrochanteric fracture of unspecified femur, initial encounter for closed fracture Status: Acute (2) Closed olecranon fracture: Qualifiers: Encounter type: subsequent encounter Fracture healing: with routine healing Laterality: right Qualified Code(s): S52.021D - Displaced fracture of olecranon process without intraarticular extension of right ulna, subsequent encounter for closed fracture with routine healing Code(s): S52.023A - Displaced fracture of olecranon process without intraarticular extension of unspecified ulna, initial encounter for closed fracture Status: Acute (3) Pneumonia: Qualifiers: Laterality: unspecified laterality Lung location: unspecified part of lung Pneumonia type: due to unspecified organism Qualified Code(s): J18.9 - Pneumonia, unspecified organism Code(s): J18.9 - Pneumonia, unspecified organism Status: Acute (4) Hypothyroidism: Qualifiers: Hypothyroidism type: postoperative Qualified Code(s): E89.0 - Postprocedural hypothyroidism Code(s): E03.9 - Hypothyroidism, unspecified Status: Acute (5) Fall from ground level: Code(s): W18.30XA - Fall on same level, unspecified, initial encounter Status: Acute Plan Patient ground level fall resulting in a right olecranon fracture and right hip intratrochanteric fracture. Left pubic rami chronic fractures. She has been placed on morphine as needed for pain. Vitale catheter has been placed due to immobility and is draining well. Orthopedic surgery has been consulted. Chest x-ray with patchy bilateral infiltrates. With leukocytosis. Treated as pneumonia. Blood culture no growth to date. Patient started on empiric antibiotics with Rocephin and doxycycline which will be continued. Flagyl was later added. Procalcitonin level was 0.2. Will resume Rocephin and doxycycline as ordered. Chest x-ray with worsening opacities likely indicating volume overload. Will give a dose of Lasix. Will also lower PPN as ordered. Intermittent diuresis Patient underwent or if both elbow right and right hip 02/04/2025. Postop course complicated with delirium. MRI brain negative for stroke overall. ABG 7.48/29/57/21 Dysphagia postoperative. failed swallow Speech therapy following. Since NPO started on TPN as discussed with the family. His more alert she will continue to work with speech therapy and likely will be able to start on oral feeds. PICC line was removed. Discussed long-term nutrition as she continued to fail swallow evaluation and MBS. She likely needs G-tube placement for long-term nutrition goals of care discussion with the daughter. Decision to switch to do not resuscitate she is opposed take cancers G-tube placement and hence planning to switch to comfort measures/hospice. Will involve hospice team. 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 She pulled her PICC line out. Continues to have intermittent confusion. Discussed with the nursing staff. Discussed with the daughter at bedside. She failed swallow evaluation again. Discussed with speech therapy. Review of Systems Review of Systems: All systems reviewed & are unremarkable except as noted in HPI and below Exam Narrative: Elderly frail no acute distress confused looking, mildly somnolent but oriented x3 Patient is comfortable, NAD HEENT: eyes are clear and none icteric LUNGS: Coarse breath sounds bilaterally no respiratory distress mildly tachypneic HEART: RR S1S2 ABD: BS+, Soft and nontender Lower extremities: no edema MS: right arm in wound dressing SKIN: nonjaundiced Neuro: grossly intact. Alert awake and oriented x3 Objective Data Vital Signs Vital Signs: Vital Signs - 24 hr 02/10/25 20:38 02/11/25 00:00 02/11/25 04:00 Temperature 98 F Pulse Rate 100 95 93 Respiratory Rate 16 Blood Pressure 156/80 H Pulse Oximetry 98 Oxygen Delivery 02/11/25 06:00 02/11/25 08:00 02/11/25 09:40 Temperature 97.3 F L Pulse Rate 94 97 Respiratory Rate 16 Blood Pressure 153/61 H Pulse Oximetry 97 Oxygen Delivery Room Air 02/11/25 12:00 02/11/25 14:00 Temperature 96.7 F L Pulse Rate 100 98 Respiratory Rate 15 Blood Pressure 136/52 L Pulse Oximetry 96 Oxygen Delivery Intake/Output Intake/Output: Intake & Output 02/08/25 02/09/25 02/10/25 02/11/25 23:59 23:59 23:59 23:59 Intake Total 600 1600 1450 Output Total 850 Balance [phone] Meds/Results Medications: Active Medications Generic Name Dose Route Start Last Admin Trade Name Freq PRN Reason Stop Dose Admin Acetaminophen 500 mg 02/05/25 15:58 Acetaminophen 500 Mg Tablet PO On Hold: 02/07/25 21:15 Q6H PRN Pain Rated 1-3 Acetaminophen 650 mg 02/07/25 21:18 02/10/25 06:20 Acetaminophen 650 Mg Suppository RECTAL 650 mg Q6H PRN Administration Mild Pain (1-3) or Fever Alteplase, Recombinant 2 mg 02/07/25 05:25 Alteplase 2 Mg Vial (Cathflo) IV PUSH ONCE PRN Line Occlusion Calcium Carbonate 500 mg 02/03/25 17:00 02/11/25 15:00 Calcium Carbonate (Oscal) 500 Mg Tablet PO Not Given DAILY@1700 [facility] Celecoxib 200 mg 02/06/25 08:00 02/11/25 14:26 Celecoxib 200 Mg Capsule PO Not Given DAILY@0800 [facility] Diazepam 5 mg 02/05/25 15:58 Diazepam (*Crx) 5 Mg Tablet PO On Hold: 02/07/25 21:15 Q8H PRN Muscle Spasm Diazepam 2 mg 02/07/25 21:20 Diazepam Inj (*Crx) 10 Mg/2 Ml Syringe IV PUSH Q6HR PRN Muscle Spasticity Donepezil HCl 10 mg 02/03/25 09:00 02/11/25 14:26 Donepezil Hcl 10 Mg Tablet PO Not Given DAILY [facility] Famotidine 20 mg 02/05/25 21:00 02/07/25 22:25 Famotidine 20 Mg Tablet PO Not Given On Hold: 02/07/25 21:17 Q12HR [facility] Famotidine 20 mg 02/08/25 09:00 02/11/25 14:26 Famotidine 20 Mg/2 Ml Vial IV PUSH Not Given Q12HR [facility] Folic Acid 0.4 mg 02/03/25 09:00 02/11/25 14:27 Folic Acid 0.4 Mg Tablet PO Not Given DAILY [facility]MI Heparin Sodium (Porcine) 5,000 units 02/05/25 21:00 02/11/25 15:06 Heparin Sodium 5,000 Units/Ml Vial SUB-Q 5,000 units Q12HR DELMI Administration Hydromorphone HCl 1 mg 02/05/25 15:58 02/07/25 01:43 Hydromorphone Hcl Inj (*Crx) 1 Mg/Ml Syr IV PUSH 1 mg Q2H PRN Administration Breakthrough Pain Rated 7-10 or NPO Hydromorphone HCl 0.5 mg 02/05/25 15:58 02/06/25 13:32 Hydromorphone Hcl Inj (*Crx) 1 Mg/Ml Syr IV PUSH 0.5 mg Q2H PRN Administration Breakthrough Pain Rated 4-6 or NPO Hydroxyzine Pamoate 50 mg 02/05/25 15:58 Hydroxyzine Pamoate 25 Mg Capsule PO On Hold: 02/07/25 21:17 Q4H PRN Itching Ibuprofen 800 mg in 200 mls @ 400 mls/hr 02/05/25 15:58 02/10/25 15:42 Caldolor 800 Mg/200 Ml IVPB 400 mls/hr Q6H PRN Administration Breakthrough Pain Rated 1-3 or NPO Metronidazole 500 mg in 100 mls @ 100 mls/hr 02/05/25 23:00 02/11/25 15:00 Flagyl 500 Mg/Iso Soln 100 Ml IVPB Not Given Q8H DELMI Dextrose 1,000 mls @ 50 mls/hr 02/08/25 15:08 Dextrose 10% IV CONT .Q20H PRN if PN is interrupted Dextrose 1,000 mls @ 50 mls/hr 02/08/25 15:24 Dextrose 10% IV CONT .Q20H PRN if PN is interrupted Ceftriaxone Sodium 1 gm/ 50 mls @ 100 mls/hr 02/09/25 22:00 02/10/25 21:24 Sodium Chloride IVPB 100 mls/hr Q24H DELMI Administration Doxycycline Hyclate 100 mg/ 100 mls @ 100 mls/hr 02/09/25 22:00 02/11/25 14:27 Sodium Chloride IVPB Not Given Q12H DELMI Levothyroxine Sodium 56 mcg 02/05/25 06:30 02/11/25 05:21 Levothyroxine Sodium Inj 100 Mcg/5 Ml Vial IV PUSH Not Given DAILY@0630 [facility] Miscellaneous Information 1 each 02/09/25 00:01 02/11/25 01:38 Please Renew Amino Acid/Tpn. Per [employer] Procedure, It Will Discontinue If Not Renewed XX 03/11/25 00:00 Not Given CLARIFY DELMI Multivitamins/Calcium 1 tablet 02/03/25 09:00 02/11/25 14:27 Therapeutic Multivitamins/Minerals Tab (*Bkc) PO Not Given DAILY [facility]MI Naloxone HCl 0.1 mg 02/05/25 15:58 Naloxone Hcl 0.4 Mg/Ml Vial IV PUSH Q2M PRN Opiate Reversal Methenamine 1 gm 02/03/25 09:00 02/11/25 14:27 Hippurate 1 Gram PO 03/05/25 08:59 Not Given Tablet Will Not Q12H DELMI Scan Ondansetron HCl 4 mg 02/05/25 15:58 Ondansetron Inj 4 Mg/2 Ml Vial IV PUSH Q4H PRN Nausea And Vomiting Oxycodone/Acetaminophen 1 tablet 02/05/25 15:58 Oxycodone/Acetaminophen (*Crx) 5-325 Mg Tablet PO On Hold: 02/07/25 21:16 Q4H PRN Pain Rated 4-6 Oxycodone/Acetaminophen 1 tab 02/05/25 15:58 Oxycodone/Acetaminophen (*Crx) 10-325 Mg Tablet PO On Hold: 02/07/25 21:16 Q6H PRN Pain Rated 7-10 Senna/Docusate Sodium 2 tab 02/05/25 17:00 02/11/25 15:00 Senna/Docusate Sodium Tablet PO Not Given BID DELMI Simvastatin 20 mg 02/05/25 18:00 02/11/25 15:00 Simvastatin 20 Mg Tablet PO Not Given QPM DELMI Sodium Chloride 10 ml 02/09/25 22:00 02/11/25 14:27 Central Line Flush IV PUSH Not Given Q8HR DELMI Sodium Chloride 10 ml 02/09/25 16:23 Central Line Flush IV PUSH PRN PRN with TPN bag changes Sodium Chloride 20 ml 02/09/25 16:23 Central Line Flush IV PUSH PRN PRN after blood draws Timolol Maleate 1 drop 02/03/25 09:00 02/11/25 15:06 Timolol Maleate 0.5% Op Soln 5 Ml Bottle EACH EYE 1 drop DAILY [facility] Administration Vitamin D 25 mcg 02/03/25 09:00 02/11/25 14:26 Cholecalciferol (Vitamin D3) 25 Mcg (1,000 Units) Tablet PO Not Given DAILY [facility] Vitamin E 1,000 unit 02/06/25 08:00 02/11/25 14:26 Vitamin E 1,000 Unit Capsule PO Not Given DAILY@0800 [facility] Radiology Results: ITS Impressions Head CT 02/03/25 08:34 IMPRESSION: 1. Stable extensive nonspecific cerebral white matter disease, which likely represents chronic small vessel ischemic disease. Cervical Spine CT 02/03/25 09:31 IMPRESSION: 1. No acute fracture. 2. Severe cervical spondylosis. Intraoperative X-Ray 02/05/25 14:04 IMPRESSION: 1. Near-anatomic alignment post open reduction internal fixation of an intra-articular proximal right ulnar fracture. See procedure note for further detail. Brain MRI 02/08/25 08:06 IMPRESSION: 1. Extensive nonspecific cerebral white matter disease, which likely represents chronic small vessel ischemic disease. 2. Note that some sequences were not performed due to patient noncompliance. Chest X-Ray 02/10/25 14:03 Impression: Probable CHF. Superimposed pneumonia suspected. The findings appear slightly improved compared to the previous exam Modified Barium Swallow 02/11/25 09:28 IMPRESSION: Pharyngeal dysphagia with significant residue and laryngeal penetration without aspiration. Please correlate with speech pathologist findings and specific feeding recommendations. Labs Labs: Laboratory Results - last 24 hr 02/11/25 02/11/25 02/11/25 00:05 06:07 06:11 WBC 21.1 H RBC 3.60 L Hgb 10.6 L Hct 33.7 L MCV 93.6 MCH 29.4 D MCHC 31.5 L RDW 18.8 H Plt Count 411 H MPV 10.3 Immature Gran % (Auto) 1.1 H Neut % (Auto) 73.8 H Lymph % (Auto) 9.4 L Faulk % (Auto) 8.5 Eos % (Auto) 6.5 H Baso % (Auto) 0.7 Lymph # (Auto) 1.98 Faulk # (Auto) 1.8 H Eos # (Auto) 1.4 H Baso # (Auto) 0.1 Abs Immat Gran (auto) 0.23 H Absolute Neuts (auto) 15.6 H Absolute Nucleated RBC 0.110 H Nucleated RBC % 0.5 H PT 13.7 INR 1.1 APTT 30.5 Sodium 138 Potassium 3.9 Chloride 101 Carbon Dioxide 30 Anion Gap 7 BUN 17 Creatinine 0.58 L Estim Creat Clear Calc 51 Estimated GFR > 60 Glucose 90 POC Capillary Glucose 100 96 Calcium 8.9 Phosphorus 3.3 Magnesium 2.0 Transferrin 191 L Total Bilirubin 2.1 H AST 41 H ALT 23 Alkaline Phosphatase 90 Total Protein 6.5 Albumin 3.4 L 02/11/25 11:44 WBC RBC Hgb Hct MCV MCH MCHC RDW Plt Count MPV Immature Gran % (Auto) Neut % (Auto) Lymph % (Auto) Faulk % (Auto) Eos % (Auto) Baso % (Auto) Lymph # (Auto) Faulk # (Auto) Eos # (Auto) Baso # (Auto) Abs Immat Gran (auto) Absolute Neuts (auto) Absolute Nucleated RBC Nucleated RBC % PT INR APTT Sodium Potassium Chloride Carbon Dioxide Anion Gap BUN Creatinine Estim Creat Clear Calc Estimated GFR Glucose POC Capillary Glucose 107 H Calcium Phosphorus Magnesium Transferrin Total Bilirubin AST ALT Alkaline Phosphatase Total Protein Albumin
[2025-02-12] VITALS (7 sets, daily range): BP systolic 124–133; BP diastolic 40–60; PULSE 84–101; RESP 16–18; TEMP 36.2–36.5; O2SAT 93–98
[2025-02-12 07:37] LABS: Anion Gap 4 mmol/L (4-12); Blood Urea Nitrogen 21 mg/dL (7-17); Calcium 8.3 mg/dL (8.4-10.2); Carbon Dioxide 29 mmol/L (22-30); Chloride 104 mmol/L (98-107); Estimated CRCL calculation 47 ml/min; Estimated Glomerular Filt Rate > 60; Glucose 93 mg/dL (65-110); Potassium 3.8 mmol/L (3.4-5.0); Sodium 137 mmol/L (137-145); Triglycerides 171 mg/dL (<150)
[2025-02-12] MEDS: TIMOLOL MALEATE 0.5% OP SOLN 5 ML BOTTLE 1 DROP EACH EYE (08:03)
--- NOTE | 2025-02-12 08:29 | P.PNOP_ITS ---
Progress Note: A&P Assessment and Plan (1) Closed olecranon fracture: Qualifiers: Encounter type: subsequent encounter Fracture healing: with routine healing Laterality: right Qualified Code(s): S52.021D - Displaced fracture of olecranon process without intraarticular extension of right ulna, subsequent encounter for closed fracture with routine healing Code(s): S52.023A - Displaced fracture of olecranon process without intraarticular extension of unspecified ulna, initial encounter for closed fracture Status: Acute Assessment and Plan: POD #7: ORIF Right Elbow Continued delirium today. PT/OT as tolerated. NWB RUE. Forearm walker. Splint in place. Keep c/d/i. Remove splint at 2 weeks post op. Transition to sling or elbow brace pending overall plan for medical care. Continue pain control. Ice Elbow. Protect skin. DVT prophylaxis with Heparin. Dispo: SNF pending progress with PT/OT and medical stability Family considering comfort care. (2) Closed intertrochanteric fracture: Qualifiers: Encounter type: subsequent encounter Fracture alignment: displaced Fracture healing: with routine healing Laterality: right Qualified Code(s): S72.141D - Displaced intertrochanteric fracture of right femur, subsequent encounter for closed fracture with routine healing Code(s): S72.143A - Displaced intertrochanteric fracture of unspecified femur, initial encounter for closed fracture Status: Acute Assessment and Plan: POD#7: TROCHANTERIC NAIL RIGHT HIP Continue PT/OT as tolerated. PWB. Walker. HIGH FALL RISK. Pain control-- awaiting IV access. Ice hip. Protect skin. DVT prophylaxis with Heparin SCDs. Incentive Spirometry Use reviewed. Monitor Dressing. Change daily and PRN. Bowel Regimen. Dispo: SNF pending progress with PT/OT and medical clearance Family considering comfort care. (3) Swallowing difficulty: Code(s): R13.10 - Dysphagia, unspecified Status: Acute Assessment and Plan: She has failed to pass a swallow study. She no longer has IV access. Family to discuss comfort care with primary team today. (4) Confusion: Code(s): R41.0 - Disorientation, unspecified Status: Acute Assessment and Plan: Continued confusion without improvement. Inability to eat/drink. Failed swallow study. Not currently getting medications with no IV access. (5) Dementia: Code(s): F03.90 - Unspecified dementia, unspecified severity, without behavioral disturbance, psychotic disturbance, mood disturbance, and anxiety Status: Acute Plan Reviewed history, exam, radiographs and current labs with attending MD and covering surgeon, Dr. Jama, who agrees with current plan as indicated above. No further recommendations from Dr. Jama at this time. Subjective Subjective Date/Time Seen: 02/12/25 08:29 Interval history: POD #7: ORIF Right Elbow Patient resting. Wakens to voice. Disoriented to year/situation. Uncomfortable. Swallowing study showed poor swallowing ability. Now with no IV access. Mouth dry/cracking/flaking. Tongue dry. Family considering Comfort care. Exam Const: General: comfortable and no acute distress Extrem: Right upper extremity: elbow/forearm (splint c/d/i ), wrist (split c/d/i ) and Extremity exam: right hand normal to inspection and no swelling Right lower extremity: normal to inspection, normal capillary refill, hip/thigh Details: tenderness Location: of the hip (Thigh soft ) Location: laterally and anteriorly, swelling Location: at the hip, abnormal ROM (limited consistent with recent surgery ) Details: pain with active ROM during and pain with passive ROM during and other (Incision c/d/i. ); no deformity and no unusual warmth, knee Details: normal to inspection; no tenderness and no swelling, lower leg (Negative Travis's Sign ) Details: normal to inspection and no edema; no tenderness, ankle (+ankle dorsiflexion/plantarflexion) Details: normal to inspection and no edema; no tenderness, no swelling and no ecchymosis and foot Details: normal capillary refill, toes with normal ROM, vascular exam Details: dorsalis pedis pulse present and motor-sensory exam Details: light-touch normal; no tenderness Objective Data Vital Signs Vital Signs: Vital Signs - 24 hr 02/11/25 09:40 02/11/25 12:00 02/11/25 14:00 Temperature 35.9 C L Pulse Rate 100 98 Respiratory Rate 15 Blood Pressure 136/52 L Pulse Oximetry 96 Oxygen Delivery Room Air 02/11/25 16:00 02/11/25 20:00 02/11/25 22:00 Temperature 36.4 C Pulse Rate 103 H 92 123 H Respiratory Rate 19 Blood Pressure 124/60 Pulse Oximetry 95 Oxygen Delivery 02/12/25 00:00 02/12/25 04:00 02/12/25 06:00 Temperature 36.2 C L Pulse Rate 89 91 96 Respiratory Rate 16 Blood Pressure 133/60 Pulse Oximetry 98 Oxygen Delivery Intake/Output Intake/Output: Intake & Output 02/09/25 02/10/25 02/11/25 02/12/25 23:59 23:59 23:59 23:59 Intake Total 1600 1450 0 Output Total 850 Balance 750 1450 0 Meds/Results Medications: Active Medications Generic Name Dose Route Start Last Admin Trade Name Freq PRN Reason Stop Dose Admin Acetaminophen 500 mg 02/05/25 15:58 Acetaminophen 500 Mg Tablet PO On Hold: 02/07/25 21:15 Q6H PRN Pain Rated 1-3 Acetaminophen 650 mg 02/07/25 21:18 02/10/25 06:20 Acetaminophen 650 Mg Suppository RECTAL 650 mg Q6H PRN Administration Mild Pain (1-3) or Fever Alteplase, Recombinant 2 mg 02/07/25 05:25 Alteplase 2 Mg Vial (Cathflo) IV PUSH ONCE PRN Line Occlusion Calcium Carbonate 500 mg 02/03/25 17:00 02/11/25 15:00 Calcium Carbonate (Oscal) 500 Mg Tablet PO Not Given DAILY@1700 [facility] Celecoxib 200 mg 02/06/25 08:00 02/12/25 07:43 Celecoxib 200 Mg Capsule PO Not Given DAILY@0800 [facility] Diazepam 5 mg 02/05/25 15:58 Diazepam (*Crx) 5 Mg Tablet PO On Hold: 02/07/25 21:15 Q8H PRN Muscle Spasm Diazepam 2 mg 02/07/25 21:20 Diazepam Inj (*Crx) 10 Mg/2 Ml Syringe IV PUSH Q6HR PRN Muscle Spasticity Donepezil HCl 10 mg 02/03/25 09:00 02/12/25 07:44 Donepezil Hcl 10 Mg Tablet PO Not Given DAILY [facility] Famotidine 20 mg 02/05/25 21:00 02/07/25 22:25 Famotidine 20 Mg Tablet PO Not Given On Hold: 02/07/25 21:17 Q12HR [facility] Famotidine 20 mg 02/08/25 09:00 02/12/25 07:44 Famotidine 20 Mg/2 Ml Vial IV PUSH Not Given Q12HR [facility] Folic Acid 0.4 mg 02/03/25 09:00 02/12/25 07:44 Folic Acid 0.4 Mg Tablet PO Not Given DAILY [facility] Heparin Sodium (Porcine) 5,000 units 02/05/25 21:00 02/12/25 08:03 Heparin Sodium 5,000 Units/Ml Vial SUB-Q 5,000 units Q12HR DELMI Administration Hydromorphone HCl 1 mg 02/05/25 15:58 02/07/25 01:43 Hydromorphone Hcl Inj (*Crx) 1 Mg/Ml Syr IV PUSH 1 mg Q2H PRN Administration Breakthrough Pain Rated 7-10 or NPO Hydromorphone HCl 0.5 mg 02/05/25 15:58 02/06/25 13:32 Hydromorphone Hcl Inj (*Crx) 1 Mg/Ml Syr IV PUSH 0.5 mg Q2H PRN Administration Breakthrough Pain Rated 4-6 or NPO Hydroxyzine Pamoate 50 mg 02/05/25 15:58 Hydroxyzine Pamoate 25 Mg Capsule PO On Hold: 02/07/25 21:17 Q4H PRN Itching Ibuprofen 800 mg in 200 mls @ 400 mls/hr 02/05/25 15:58 02/10/25 15:42 Caldolor 800 Mg/200 Ml IVPB 400 mls/hr Q6H PRN Administration Breakthrough Pain Rated 1-3 or NPO Metronidazole 500 mg in 100 mls @ 100 mls/hr 02/05/25 23:00 02/12/25 05:44 Flagyl 500 Mg/Iso Soln 100 Ml IVPB Not Given Q8H [facility] Dextrose 1,000 mls @ 50 mls/hr 02/08/25 15:08 Dextrose 10% IV CONT .Q20H PRN if PN is interrupted Dextrose 1,000 mls @ 50 mls/hr 02/08/25 15:24 Dextrose 10% IV CONT .Q20H PRN if PN is interrupted Ceftriaxone Sodium 1 gm/ 50 mls @ 100 mls/hr 02/09/25 22:00 02/11/25 21:21 Sodium Chloride IVPB Not Given Q24H [facility] Doxycycline Hyclate 100 mg/ 100 mls @ 100 mls/hr 02/09/25 22:00 02/11/25 21:21 Sodium Chloride IVPB Not Given Q12H [facility] Levothyroxine Sodium 56 mcg 02/05/25 06:30 02/12/25 05:43 Levothyroxine Sodium Inj 100 Mcg/5 Ml Vial IV PUSH Not Given DAILY@0630 [facility] Miscellaneous Information 1 each 02/09/25 00:01 02/12/25 06:03 Please Renew Amino Acid/Tpn. Per [employer] Procedure, It Will Discontinue If Not Renewed XX 03/11/25 00:00 Not Given CLARIFY [facility] Multivitamins/Calcium 1 tablet 02/03/25 09:00 02/12/25 07:44 Therapeutic Multivitamins/Minerals Tab (*Bkc) PO Not Given DAILY [facility] Naloxone HCl 0.1 mg 02/05/25 15:58 Naloxone Hcl 0.4 Mg/Ml Vial IV PUSH Q2M PRN Opiate Reversal Methenamine 1 gm 02/03/25 09:00 02/12/25 07:44 Hippurate 1 Gram PO 03/05/25 08:59 Not Given Tablet Will Not Q12H DELMI Scan Ondansetron HCl 4 mg 02/05/25 15:58 Ondansetron Inj 4 Mg/2 Ml Vial IV PUSH Q4H PRN Nausea And Vomiting Oxycodone/Acetaminophen 1 tablet 02/05/25 15:58 Oxycodone/Acetaminophen (*Crx) 5-325 Mg Tablet PO On Hold: 02/07/25 21:16 Q4H PRN Pain Rated 4-6 Oxycodone/Acetaminophen 1 tab 02/05/25 15:58 Oxycodone/Acetaminophen (*Crx) 10-325 Mg Tablet PO On Hold: 02/07/25 21:16 Q6H PRN Pain Rated 7-10 Senna/Docusate Sodium 2 tab 02/05/25 17:00 02/12/25 07:44 Senna/Docusate Sodium Tablet PO Not Given BID DELMI Simvastatin 20 mg 02/05/25 18:00 02/11/25 15:00 Simvastatin 20 Mg Tablet PO Not Given QPM DELMI Sodium Chloride 10 ml 02/09/25 22:00 02/12/25 05:43 Central Line Flush IV PUSH Not Given Q8HR DELMI Sodium Chloride 10 ml 02/09/25 16:23 Central Line Flush IV PUSH PRN PRN with TPN bag changes Sodium Chloride 20 ml 02/09/25 16:23 Central Line Flush IV PUSH PRN PRN after blood draws Timolol Maleate 1 drop 02/03/25 09:00 02/12/25 08:03 Timolol Maleate 0.5% Op Soln 5 Ml Bottle EACH EYE 1 drop DAILY [facility] Administration Vitamin D 25 mcg 02/03/25 09:00 02/12/25 07:44 Cholecalciferol (Vitamin D3) 25 Mcg (1,000 Units) Tablet PO Not Given DAILY [facility] Vitamin E 1,000 unit 02/06/25 08:00 02/12/25 07:43 Vitamin E 1,000 Unit Capsule PO Not Given DAILY@0800 [facility] Radiology Results: ITS Impressions Head CT 02/03/25 08:34 IMPRESSION: 1. Stable extensive nonspecific cerebral white matter disease, which likely represents chronic small vessel ischemic disease. Cervical Spine CT 02/03/25 09:31 IMPRESSION: 1. No acute fracture. 2. Severe cervical spondylosis. Intraoperative X-Ray 02/05/25 14:04 IMPRESSION: 1. Near-anatomic alignment post open reduction internal fixation of an intra- articular proximal right ulnar fracture. See procedure note for further detail. Brain MRI 02/08/25 08:06 IMPRESSION: 1. Extensive nonspecific cerebral white matter disease, which likely represents chronic small vessel ischemic disease. 2. Note that some sequences were not performed due to patient noncompliance. Chest X-Ray 02/10/25 14:03 Impression: Probable CHF. Superimposed pneumonia suspected. The findings appear slightly improved compared to the previous exam Modified Barium Swallow 02/11/25 09:28 IMPRESSION: Pharyngeal dysphagia with significant residue and laryngeal penetration without aspiration. Please correlate with speech pathologist findings and specific feeding recommendations. Labs Labs: Laboratory Results - last 24 hr 02/11/25 02/11/25 02/11/25 06:07 11:44 23:56 Sodium 138 Potassium 3.9 Chloride 101 Carbon Dioxide 30 Anion Gap 7 BUN 17 Creatinine 0.58 L Estim Creat Clear Calc 51 Estimated GFR > 60 Glucose 90 POC Capillary Glucose 107 H 83 Calcium 8.9 Phosphorus 3.3 Magnesium 2.0 Transferrin 191 L Total Bilirubin 2.1 H AST 41 H ALT 23 Alkaline Phosphatase 90 Total Protein 6.5 Albumin 3.4 L Triglycerides 02/12/25 02/12/25 05:52 06:29 Sodium 137 Potassium 3.8 Chloride 104 Carbon Dioxide 29 Anion Gap 4 BUN 21 H Creatinine 0.63 L Estim Creat Clear Calc 47 Estimated GFR > 60 Glucose 93 POC Capillary Glucose 95 Calcium 8.3 L Phosphorus 3.8 Magnesium Transferrin Total Bilirubin AST ALT Alkaline Phosphatase Total Protein Albumin Triglycerides 171 H
[2025-02-12 08:36] LABS: Hematocrit 29.8 % (37.0-47.0); Hemoglobin 9.3 g/dL (12.0-15.0); Immature Granulocyte Percent A 1.4 % (0-0.5); Lymphocytes Absolute Auto 2.06 K/mm3 (0.9-3.2); Mean Corpuscular HGB Conc 31.2 g/dl (32-36); Mean Corpuscular Hemoglobin 29.8 pg (26-34); Mean Corpuscular Volume 95.5 fl (80-100); Nucleated Red Blood Cells Absolute Auto 0.050 K/mm3 (0.0-0.012); Nucleated Red Blood Cells Perc 0.3 % (0.0-0.2); Platelet Count Result 463 k/mm3 (150-375); Red Blood Count 3.12 M/mm3 (4.2-5.4); White Blood Count 18.1 K/mm3 (4.5-10.0)
--- NOTE | 2025-02-12 11:45 | PC.NURSE ---
Dr Pool notified of no iv and not taking any po meds that are ordered due to npo
--- NOTE | 2025-02-12 15:16 | PM.IMPN ---
Progress Note: A&P Assessment and Plan (1) Closed intertrochanteric fracture: Qualifiers: Encounter type: subsequent encounter Fracture alignment: displaced Fracture healing: with routine healing Laterality: right Qualified Code(s): S72.141D - Displaced intertrochanteric fracture of right femur, subsequent encounter for closed fracture with routine healing Code(s): S72.143A - Displaced intertrochanteric fracture of unspecified femur, initial encounter for closed fracture Status: Acute (2) Closed olecranon fracture: Qualifiers: Encounter type: subsequent encounter Fracture healing: with routine healing Laterality: right Qualified Code(s): S52.021D - Displaced fracture of olecranon process without intraarticular extension of right ulna, subsequent encounter for closed fracture with routine healing Code(s): S52.023A - Displaced fracture of olecranon process without intraarticular extension of unspecified ulna, initial encounter for closed fracture Status: Acute (3) Pneumonia: Qualifiers: Laterality: unspecified laterality Lung location: unspecified part of lung Pneumonia type: due to unspecified organism Qualified Code(s): J18.9 - Pneumonia, unspecified organism Code(s): J18.9 - Pneumonia, unspecified organism Status: Acute (4) Hypothyroidism: Qualifiers: Hypothyroidism type: postoperative Qualified Code(s): E89.0 - Postprocedural hypothyroidism Code(s): E03.9 - Hypothyroidism, unspecified Status: Acute (5) Fall from ground level: Code(s): W18.30XA - Fall on same level, unspecified, initial encounter Status: Acute Plan Patient ground level fall resulting in a right olecranon fracture and right hip intratrochanteric fracture. Left pubic rami chronic fractures. She has been placed on morphine as needed for pain. Vitale catheter has been placed due to immobility and is draining well. Orthopedic surgery has been consulted. Chest x-ray with patchy bilateral infiltrates. With leukocytosis. Treated as pneumonia. Blood culture no growth to date. Patient started on empiric antibiotics with Rocephin and doxycycline which will be continued. Flagyl was later added. Procalcitonin level was 0.2. Will resume Rocephin and doxycycline as ordered. Chest x-ray with worsening opacities likely indicating volume overload. Will give a dose of Lasix. Will also lower PPN as ordered. Intermittent diuresis Patient underwent or if both elbow right and right hip 02/04/2025. Postop course complicated with delirium. MRI brain negative for stroke overall. ABG 7.48///21 Dysphagia postoperative. failed swallow Speech therapy following. Since NPO started on TPN as discussed with the family. His more alert she will continue to work with speech therapy and likely will be able to start on oral feeds. PICC line was removed. Discussed long-term nutrition as she continued to fail swallow evaluation and MBS. She likely needs G-tube placement for long-term nutrition goals of care discussion with the daughter. Decision to switch to do not resuscitate she is opposed take cancers G-tube placement and hence planning to switch to comfort measures/hospice. hospice team consulted. awaiting arrangements for hospice and longterm placement Patient has history of thyroidectomy on levothyroxine DVT prophylaxis heparin subQ Dementia on Aricept at home Code status full code switched to DNR Subjective Date/time seen: 02/12/25 15:16 Interval history: No overnight events reported. patient continues to remain confused. daughter at bedside. planned hospice plan. Review of Systems Review of Systems: All systems reviewed & are unremarkable except as noted in HPI and below Exam Narrative: Elderly frail no acute distress confused looking somnolent, Patient is comfortable, NAD HEENT: eyes are clear and none icteric LUNGS: Coarse breath sounds bilaterally no respiratory distress mildly tachypneic HEART: RR S1S2 ABD: BS+, Soft and nontender Lower extremities: no edema MS: right arm in wound dressing SKIN: nonjaundiced Neuro: patient somnolent Objective Data Vital Signs Vital Signs: Vital Signs - 24 hr 02/11/25 16:00 02/11/25 20:00 02/11/25 22:00 Temperature 97.6 F Pulse Rate 103 H 92 123 H Respiratory Rate 19 Blood Pressure 124/60 Pulse Oximetry 95 Oxygen Delivery 02/12/25 00:00 02/12/25 04:00 02/12/25 06:00 Temperature 97.1 F L Pulse Rate 89 91 96 Respiratory Rate 16 Blood Pressure 133/60 Pulse Oximetry 98 Oxygen Delivery 02/12/25 08:00 02/12/25 08:00 02/12/25 12:28 Temperature Pulse Rate 84 98 Respiratory Rate Blood Pressure Pulse Oximetry 98 Oxygen Delivery Room Air 02/12/25 13:46 Temperature 97.6 F Pulse Rate 94 Respiratory Rate 18 Blood Pressure 124/40 L Pulse Oximetry 93 Oxygen Delivery Intake/Output Intake/Output: Intake & Output 02/09/25 02/10/25 02/11/25 02/12/25 23:59 23:59 23:59 23:59 Intake Total 1600 1450 0 Output Total 850 Balance 750 1450 0 Meds/Results Medications: Active Medications Generic Name Dose Route Start Last Admin Trade Name Freq PRN Reason Stop Dose Admin Acetaminophen 500 mg 02/05/25 15:58 Acetaminophen 500 Mg Tablet PO On Hold: 02/07/25 21:15 Q6H PRN Pain Rated 1-3 Acetaminophen 650 mg 02/07/25 21:18 02/10/25 06:20 Acetaminophen 650 Mg Suppository RECTAL 650 mg Q6H PRN Administration Mild Pain (1-3) or Fever Alteplase, Recombinant 2 mg 02/07/25 05:25 Alteplase 2 Mg Vial (Cathflo) IV PUSH ONCE PRN Line Occlusion Calcium Carbonate 500 mg 02/03/25 17:00 02/11/25 15:00 Calcium Carbonate (Oscal) 500 Mg Tablet PO Not Given DAILY@1700 [facility] Celecoxib 200 mg 02/06/25 08:00 02/12/25 07:43 Celecoxib 200 Mg Capsule PO Not Given DAILY@0800 [facility] Diazepam 5 mg 02/05/25 15:58 Diazepam (*Crx) 5 Mg Tablet PO On Hold: 02/07/25 21:15 Q8H PRN Muscle Spasm Diazepam 2 mg 02/07/25 21:20 Diazepam Inj (*Crx) 10 Mg/2 Ml Syringe IV PUSH Q6HR PRN Muscle Spasticity Donepezil HCl 10 mg 02/03/25 09:00 02/12/25 07:44 Donepezil Hcl 10 Mg Tablet PO Not Given DAILY [facility] Famotidine 20 mg 02/05/25 21:00 02/07/25 22:25 Famotidine 20 Mg Tablet PO Not Given On Hold: 02/07/25 21:17 Q12HR [facility] Famotidine 20 mg 02/08/25 09:00 02/12/25 07:44 Famotidine 20 Mg/2 Ml Vial IV PUSH Not Given Q12HR [facility] Folic Acid 0.4 mg 02/03/25 09:00 02/12/25 07:44 Folic Acid 0.4 Mg Tablet PO Not Given DAILY DELMI Heparin Sodium (Porcine) 5,000 units 02/05/25 21:00 02/12/25 08:03 Heparin Sodium 5,000 Units/Ml Vial SUB-Q 5,000 units Q12HR DELMI Administration Hydromorphone HCl 1 mg 02/05/25 15:58 02/07/25 01:43 Hydromorphone Hcl Inj (*Crx) 1 Mg/Ml Syr IV PUSH 1 mg Q2H PRN Administration Breakthrough Pain Rated 7-10 or NPO Hydromorphone HCl 0.5 mg 02/05/25 15:58 02/06/25 13:32 Hydromorphone Hcl Inj (*Crx) 1 Mg/Ml Syr IV PUSH 0.5 mg Q2H PRN Administration Breakthrough Pain Rated 4-6 or NPO Hydroxyzine Pamoate 50 mg 02/05/25 15:58 Hydroxyzine Pamoate 25 Mg Capsule PO On Hold: 02/07/25 21:17 Q4H PRN Itching Ibuprofen 800 mg in 200 mls @ 400 mls/hr 02/05/25 15:58 02/10/25 15:42 Caldolor 800 Mg/200 Ml IVPB 400 mls/hr Q6H PRN Administration Breakthrough Pain Rated 1-3 or NPO Metronidazole 500 mg in 100 mls @ 100 mls/hr 02/05/25 23:00 02/12/25 05:44 Flagyl 500 Mg/Iso Soln 100 Ml IVPB Not Given Q8H DELMI Dextrose 1,000 mls @ 50 mls/hr 02/08/25 15:08 Dextrose 10% IV CONT .Q20H PRN if PN is interrupted Dextrose 1,000 mls @ 50 mls/hr 02/08/25 15:24 Dextrose 10% IV CONT .Q20H PRN if PN is interrupted Ceftriaxone Sodium 1 gm/ 50 mls @ 100 mls/hr 02/09/25 22:00 02/11/25 21:21 Sodium Chloride IVPB Not Given Q24H DELMI Doxycycline Hyclate 100 mg/ 100 mls @ 100 mls/hr 02/09/25 22:00 02/12/25 10:15 Sodium Chloride IVPB Not Given Q12H [facility] Levothyroxine Sodium 56 mcg 02/05/25 06:30 02/12/25 05:43 Levothyroxine Sodium Inj 100 Mcg/5 Ml Vial IV PUSH Not Given DAILY@0630 [facility] Miscellaneous Information 1 each 02/09/25 00:01 02/12/25 06:03 Please Renew Amino Acid/Tpn. Per [employer] Procedure, It Will Discontinue If Not Renewed XX 03/11/25 00:00 Not Given CLARIFY DELMI Multivitamins/Calcium 1 tablet 02/03/25 09:00 02/12/25 07:44 Therapeutic Multivitamins/Minerals Tab (*Bkc) PO Not Given DAILY DELMI Naloxone HCl 0.1 mg 02/05/25 15:58 Naloxone Hcl 0.4 Mg/Ml Vial IV PUSH Q2M PRN Opiate Reversal Methenamine 1 gm 02/03/25 09:00 02/12/25 07:44 Hippurate 1 Gram PO 03/05/25 08:59 Not Given Tablet Will Not Q12H DELMI Scan Ondansetron HCl 4 mg 02/05/25 15:58 Ondansetron Inj 4 Mg/2 Ml Vial IV PUSH Q4H PRN Nausea And Vomiting Oxycodone/Acetaminophen 1 tablet 02/05/25 15:58 Oxycodone/Acetaminophen (*Crx) 5-325 Mg Tablet PO On Hold: 02/07/25 21:16 Q4H PRN Pain Rated 4-6 Oxycodone/Acetaminophen 1 tab 02/05/25 15:58 Oxycodone/Acetaminophen (*Crx) 10-325 Mg Tablet PO On Hold: 02/07/25 21:16 Q6H PRN Pain Rated 7-10 Senna/Docusate Sodium 2 tab 02/05/25 17:00 02/12/25 07:44 Senna/Docusate Sodium Tablet PO Not Given BID DELMI Simvastatin 20 mg 02/05/25 18:00 02/11/25 15:00 Simvastatin 20 Mg Tablet PO Not Given QPM DELMI Sodium Chloride 10 ml 02/09/25 22:00 02/12/25 05:43 Central Line Flush IV PUSH Not Given Q8HR DELMI Sodium Chloride 10 ml 02/09/25 16:23 Central Line Flush IV PUSH PRN PRN with TPN bag changes Sodium Chloride 20 ml 02/09/25 16:23 Central Line Flush IV PUSH PRN PRN after blood draws Timolol Maleate 1 drop 02/03/25 09:00 02/12/25 08:03 Timolol Maleate 0.5% Op Soln 5 Ml Bottle EACH EYE 1 drop DAILY [facility] Administration Vitamin D 25 mcg 02/03/25 09:00 02/12/25 07:44 Cholecalciferol (Vitamin D3) 25 Mcg (1,000 Units) Tablet PO Not Given DAILY [facility] Vitamin E 1,000 unit 02/06/25 08:00 02/12/25 07:43 Vitamin E 1,000 Unit Capsule PO Not Given DAILY@0800 [facility] Radiology Results: ITS Impressions Head CT 02/03/25 08:34 IMPRESSION: 1. Stable extensive nonspecific cerebral white matter disease, which likely represents chronic small vessel ischemic disease. Cervical Spine CT 02/03/25 09:31 IMPRESSION: 1. No acute fracture. 2. Severe cervical spondylosis. Intraoperative X-Ray 02/05/25 14:04 IMPRESSION: 1. Near-anatomic alignment post open reduction internal fixation of an intra-articular proximal right ulnar fracture. See procedure note for further detail. Brain MRI 02/08/25 08:06 IMPRESSION: 1. Extensive nonspecific cerebral white matter disease, which likely represents chronic small vessel ischemic disease. 2. Note that some sequences were not performed due to patient noncompliance. Chest X-Ray 02/10/25 14:03 Impression: Probable CHF. Superimposed pneumonia suspected. The findings appear slightly improved compared to the previous exam Modified Barium Swallow 02/11/25 09:28 IMPRESSION: Pharyngeal dysphagia with significant residue and laryngeal penetration without aspiration. Please correlate with speech pathologist findings and specific feeding recommendations. Labs Labs: Laboratory Results - last 24 hr 02/11/25 02/12/25 02/12/25 23:56 05:52 06:29 WBC 18.1 H RBC 3.12 L Hgb 9.3 L Hct 29.8 L MCV 95.5 MCH 29.8 MCHC 31.2 L RDW 19.6 H Plt Count 463 H MPV 11.0 H Immature Gran % (Auto) 1.4 H Neut % (Auto) 75.9 H Lymph % (Auto) 11.4 L [place] % (Auto) 8.4 Eos % (Auto) 2.4 Baso % (Auto) 0.5 Lymph # (Auto) 2.06 [place] # (Auto) 1.5 H Eos # (Auto) 0.4 H Baso # (Auto) 0.1 Abs Immat Gran (auto) 0.25 H Absolute Neuts (auto) 13.7 H Absolute Nucleated RBC 0.050 H Nucleated RBC % 0.3 H Sodium 137 Potassium 3.8 Chloride 104 Carbon Dioxide 29 Anion Gap 4 BUN 21 H Creatinine 0.63 L Estim Creat Clear Calc 47 Estimated GFR > 60 Glucose 93 POC Capillary Glucose 83 95 Calcium 8.3 L Phosphorus 3.8 Triglycerides 171 H 02/12/25 11:41 WBC RBC Hgb Hct MCV MCH MCHC RDW Plt Count MPV Immature Gran % (Auto) Neut % (Auto) Lymph % (Auto) [place] % (Auto) Eos % (Auto) Baso % (Auto) Lymph # (Auto) [place] # (Auto) Eos # (Auto) Baso # (Auto) Abs Immat Gran (auto) Absolute Neuts (auto) Absolute Nucleated RBC Nucleated RBC % Sodium Potassium Chloride Carbon Dioxide Anion Gap BUN Creatinine Estim Creat Clear Calc Estimated GFR Glucose POC Capillary Glucose 99 Calcium Phosphorus Triglycerides
[2025-02-13 05:35] VITALS: BP 125/43; PULSE 100; RESP 18; TEMP 36.5; O2SAT 97
[2025-02-13 08:00] VITALS: O2SAT 97
[2025-02-13] MEDS: TIMOLOL MALEATE 0.5% OP SOLN 5 ML BOTTLE 1 DROP EACH EYE (10:07)
--- NOTE | 2025-02-13 12:26 | P.DS_ITS ---
DS: Admitting Diagnosis Discharge Date 02/13/25 Admitting Diagnosis Fall DS: Discharge Diagnosis Discharge Diagnosis (1) Closed intertrochanteric fracture: Qualifiers: Encounter type: subsequent encounter Fracture alignment: displaced Fracture healing: with routine healing Laterality: right Qualified Code(s): S72.141D - Displaced intertrochanteric fracture of right femur, subsequent encounter for closed fracture with routine healing Code(s): S72.143A - Displaced intertrochanteric fracture of unspecified femur, initial encounter for closed fracture Status: Acute (2) Closed olecranon fracture: Qualifiers: Encounter type: subsequent encounter Fracture healing: with routine healing Laterality: right Qualified Code(s): S52.021D - Displaced fracture of olecranon process without intraarticular extension of right ulna, subsequent encounter for closed fracture with routine healing Code(s): S52.023A - Displaced fracture of olecranon process without intraarticular extension of unspecified ulna, initial encounter for closed fracture Status: Acute (3) Pneumonia: Qualifiers: Laterality: unspecified laterality Lung location: unspecified part of lung Pneumonia type: due to unspecified organism Qualified Code(s): J18.9 - Pneumonia, unspecified organism Code(s): J18.9 - Pneumonia, unspecified organism Status: Acute (4) Hypothyroidism: Qualifiers: Hypothyroidism type: postoperative Qualified Code(s): E89.0 - Postprocedural hypothyroidism Code(s): E03.9 - Hypothyroidism, unspecified Status: Acute (5) Fall from ground level: Code(s): W18.30XA - Fall on same level, unspecified, initial encounter Status: Acute (6) Dementia: Code(s): F03.90 - Unspecified dementia, unspecified severity, without behavioral disturbance, psychotic disturbance, mood disturbance, and anxiety Status: Acute (7) Swallowing difficulty: Code(s): R13.10 - Dysphagia, unspecified Status: Acute DS: Summary Hospital Course Reason for hospitalization: 89yo female with dementia, hypothyroidism, and glaucoma who presented to the ER from [facility] via EMS after ground level fall resulting in right hip and right elbow pain. Please see H&P for details. Hospital Course: Patient had a ground level fall resulting in a right olecranon fracture and right intratrochanteric fracture. Also noted was a chronic left pubic rami fracture. CT brain showing stable extensive nonspecific cerebral white matter disease but no acute findings. Cervical spine CT was negative for acute fracture. She was started on analgesics as needed. Orthopedic surgery was consulted. CXR was suggestive of pneumonia and she had leukocytosis. She has some conversational tachypnea on admission. Blood cultures were negative. The patient has been started empiric antibiotic therapy with Rocephin and doxycycline. Flagyl was later added. Procalcitonin level was 0.2. Patient underwent ORIF of both the right elbow and right femur 02/04/2025. Postop course complicated with delirium. MRI brain negative for stroke overall. Dysphagia postoperative; she failed swallow study. Since NPO, she was started on TPN after discussion with the family. Chest x-ray with worsening opacities likely indicating volume overload so treated with Lasix. Discussed long-term nutrition as she continued to fail swallow evaluation and MBS that included placing a feeding tube. Provider discussed goals of care with the daughter. Patient was changed to do not resuscitate status. Family decided to move patient to comfort measures/hospice. Care coordination made appropriate arrangements and patient was discharged to care facility on hospice care. Discharge discussed with daughter at length. All questions answered. Status at Discharge Cognitive/behavioral status at discharge: stable Time Spent with Patient Time attestation: Total time spent providing and/or coordinating discharge services: 35 minutes Time spent: Greater than 30 minutes Exam Narrative: AF 97.7 125/43 100 18 97% ra Gen - NARD Chest - right base crackles. nml RR CV - RRR S1/S2 Abd - Soft, NT/ND, Positive BS Ext - right hip dressing is clean, dry and intact. Right UE AFIA wrapped. Neuro - Alert but confused. nml right hand sensation Psych - Nml mood and affect Skin - Warm and dry. Bruising noted right lateral hip DS: Data Data Completed and Pending Labs on day of discharge: Labs from last 24 hours 02/13/25 02/13/25 02/13/25 11:31 07:48 04:39 POC Capillary Glucose 100 86 97 02/12/25 02/12/25 02/12/25 23:37 17:43 11:41 POC Capillary Glucose 82 100 99 Discharge Plan Discharge Attending physician on discharge: Taurus Mallory Consulting providers: Ron Jama Discharging Clinician: Taurus Mallory Anticipated Discharge Date/Time: 02/13/25 12:52 Patient Disposition: Hospice - Medical Facility Activity: may shower and no driving Diet: as tolerated Wound Care Instructions: follow printed instructions Discharge Instructions: Postoperative Hip Fracture Instructions Dr. Ron Jama [phone] * Dressing to be changed daily with an island dressing beginning on post op day #2. May stop dressing changes at post op day #14. No sutures/siria will need to be removed. Can allow Dermabond to fall off naturally. * Weight bearing: Protected weight bearing, RLE and NWB, RUE. * Sling right arm/splint in place. * You may shower with your dressing but do not submerge in a bath tub. * Do not drive or operate machinery until you are released by your surgeon. * Do not walk without a walker for any reason until you are released by your surgeon. * Continue to apply ice to the hip intermittently for additional pain relief. Protect your skin with a towel or pillow case. * Continue to follow strict hip fracture precautions. * Please contact our office with any questions/concerns regarding your hip at [phone]. * Follow up appointment instructions indicated below. Take precautions to avoid falls. Follow-up with the provider at the facility. Hospice to follow at facility Thank you for using [facility] for your health care needs. Patient Language: [place] Stand Alone Forms: General Discharge Information Follow-up/Referrals: Ron Jama MD [Physician, Orthopedics] - 03/07/25 10:45 am Flick,Arpit Marion DO [Primary Care Provider, Unknown] - Call for Appointment Discharge Medications: No Action donepezil 10 mg tablet 10 mg PO DAILY methenamine hippurate 1 gram tablet 1 g PO Q12H simvastatin 20 mg tablet 20 mg PO QPM timolol maleate 0.5 % drops 1 drp EACH EYE DAILY levothyroxine 112 mcg tablet 112 mcg PO DAILY@0630 calcium carbonate 600 mg calcium (1,500 mg) tablet 600 mg PO DAILY@1700 folic acid 400 mcg tablet 400 mcg PO DAILY glucosamine sulfate 500 mg capsule 500 mg PO QID Centrum Silver Women 8 mg iron-400 mcg-50 mcg tablet 1 tablet PO . daily cholecalciferol (vitamin D3) 25 mcg (1,000 unit) tablet 25 mcg PO DAILY vitamin E (dl, acetate) 450 mg (1,000 unit) capsule 450 mg PO DAILY@0800 Date of admission: 02/03/25 07:29 Primary Care Provider: Chloe,Arpit Marion Admitting Provider: Denise Grant Attending physician on admission: Denise Grant Condition: Guarded Prognosis Hospitalist MIPS Heart Failure (Exclusion) Patient has history of Heart Transplant or Left Ventricular Assistive Device?: No IF YES, STOP HERE Heart Failure (Qualifier) Patient has current or prior documentation of LVEF less than or equal to 40%, or mod/servere depressed LVSF?: No IF NO, STOP HERE
== END 2025-02-13 16:03 | disposition hospice, inpatient (51) | DRG 480 ==
LOC: ANHED 23:56 → ANH3MEDSUR 02-03 00:41
PROVIDERS: Anesthesiology; Family Medicine; Internal Medicine; Orthopaedic Surgery; Admitting Provider Internal Medicine; Emergency Provider Student in an Organized Health Care Education/Training Program; PCP Internal Medicine; Visit Provider Internal Medicine
PROC: 0QS634Z Reposition Right Upper Femur with Internal Fixation Device, Percutaneous Approach (ICD-10-PCS; CPT 27245; principal; 2025-02-05 08:30)
PROC: 0QS634Z Reposition Right Upper Femur with Internal Fixation Device, Percutaneous Approach (ICD-10-PCS; 2025-02-05 08:30)
DX: S72.141A Displaced intertrochanteric fracture of right femur, initial encounter for closed fracture (principal); J18.9 Pneumonia, unspecified organism; F05 Delirium due to known physiological condition; S52.021A Displaced fracture of olecranon process without intraarticular extension of right ulna, initial encounter for closed fracture; E03.9 Hypothyroidism, unspecified; E87.70 Fluid overload, unspecified; E55.9 Vitamin D deficiency, unspecified; E78.5 Hyperlipidemia, unspecified; M81.0 Age-related osteoporosis without current pathological fracture; R13.10 Dysphagia, unspecified; H40.9 Unspecified glaucoma; F03.90 Unspecified dementia, unspecified severity, without behavioral disturbance, psychotic disturbance, mood disturbance, and anxiety; W18.11XA Fall from or off toilet without subsequent striking against object, initial encounter; Z20.822 Contact with and (suspected) exposure to COVID-19; Z51.5 Encounter for palliative care
CPT/HCPCS: 29105; 36415; 36430; 36569; 36600; 70450; 70551; 71045; 72125; 72170; 73070; 73502; 74230; 80048; 80053; 81001; 82550; 82805; 82948; 83605; 83690; 83735; 84100; 84145; 84443; 84466; 84478; 84484; 85014; 85018; 85025; 85027; 85610; 85730; 86850; 86900; 86901; 86923; 87040; 87637; 92526; 92610; 92611; 93005; 96361; 96365; 97110; 97162; 97166; 97530; 97535; 99199; 99285; J0690; A4565; A9270; C1713; C1751; C1769; G0378; J0650; J0696; J1171; J1644; J1741; J1836; J1938; J2003; J2270; J2704; J3010; J3290; J3480; J7030; J7040; J7050; J7120; L0140; P9016